=== PATIENT | male | born 1985 | race Caucasian/White ===

== ENCOUNTER 2020-06-08 16:52 | Inpatient (IN) | payer SELFPAY ==
[2020-06-08 20:54] LABS: Absolute Lymphocytes (CBC) 2.4 K/uL (0.7-4.9); Basophils % 0.9 % (0-1.3); Hematocrit 33.7 % (39.6-49.0); Lymphocytes % 15.9 % (15.3-44.8); MPV 7.1 fL (7.6-11.3); RBC Red Blood Cell Count 3.69 M/uL (4.33-5.43)
[2020-06-08 20:56] LABS: ALT/SGPT 155 U/L (12-78); AST/SGOT 105 U/L (15-37); Albumin 2.4 g/dL (3.4-5.0); Alkaline Phosphatase 236 U/L (45-117); BUN Blood Urea Nitrogen 18 mg/dL (7-18); Bicarbonate 31 mmol/L (21-32); Bilirubin Total 0.3 mg/dL (0.2-1.0); Glucose Level 92 mg/dL (74-106); Potassium 3.9 mmol/L (3.5-5.1); Protein, Total 8.1 g/dL (6.4-8.2); Sodium Level 141 mmol/L (136-145)
[2020-06-08] MEDS ORDERED: NA CHLORIDE 0.9% 1,000 ML ONE ×2 (21:37→22:42)
[2020-06-08 22:32] LABS: Protime INR 1.22
--- NOTE | 2020-06-08 22:33 | ER ---
Nurse's Notes [facility] Name: Liam Neal Age: 34 yrs Sex: Male : 1985 Arrival Date: 06/08/2020 Time: 16:55 Bed 18 Private MD: Diagnosis: Fever, unspecified;Pneumonia, unspecified organism;Sepsis, unspecified organism Presentation: 06/08 17:32 Chief complaint: Patient states: Nurse in the clinic in [place] said I must be septic. ca1 I got MRSA. I got blister inside my nose and my lips and top of my nose. Also have a rash/wound on my inner R wrist. Reports fever on and off > 1 week [employer]. Coronavirus screen: fever, Client presents with at least one sign or symptom that may indicate coronavirus-19. Standard/surgical mask placed on the client. Provider contacted for isolation considerations. Ebola Screen: Patient negative for fever greater than or equal to 101.5 degrees Fahrenheit, and additional compatible Ebola Virus Disease symptoms Patient denies exposure to infectious person. Patient denies travel to an Ebola-affected area in the 21 days before illness onset. No symptoms or risks identified at this time. Initial Sepsis Screen: Does the patient meet any 2 criteria? No. Patient's initial sepsis screen is negative. Does the patient have a suspected source of infection? No. Patient's initial sepsis screen is negative. Risk Assessment: Do you want to hurt yourself or someone else? Patient reports no desire to harm self or others. Onset of symptoms was June 08, 2020. 17:32 Method Of Arrival: Ambulatory ca1 17:32 Acuity: MIKA 3 ca1 Historical: - Allergies: 17:40 Amoxicillin; ca1 - Home Meds: 17:40 clindamycin HCl 300 mg Oral cap 1 cap every 6 hours [Active]; acyclovir 400 mg Oral tab ca1 1 tab 5 times per day [Active]; cyclobenzaprine 5 mg Oral tab 1 tab 3 times per day [Active]; Ibuprofen Oral [Active]; - PMHx: 17:40 None; ca1 - PSHx: 17:40 None; ca1 - Immunization history:: Last tetanus immunization: up to date Pneumococcal vaccine status is unknown, Flu vaccine is not up to date. - Social history:: Smoking status: Patient reports the use of cigarette tobacco products, smokes one-half pack cigarettes per day. Screenin:05 Abuse screen: Denies threats or abuse. Denies injuries from another. Nutritional zb screening: No deficits noted. Tuberculosis screening: No symptoms or risk factors identified. Fall Risk None identified. Assessment: 20:20 General: Appears in no apparent distress. comfortable, Behavior is calm, cooperative, zb appropriate for age. Pain: Complains of pain in forehead Pain does not radiate. Pain currently is 6 out of 10 on a pain scale. Neuro: Level of Consciousness is awake, alert, obeys commands, Oriented to person, place, time. Cardiovascular: Heart tones S1 S2 present Patient's skin is warm and dry. Respiratory: Reports Airway is patent Respiratory effort is even, unlabored, Respiratory pattern is regular, symmetrical. GI: Abdomen is flat, non-distended. : No signs and/or symptoms were reported regarding the genitourinary system. EENT: Derm: No signs and/or symptoms reported regarding the dermatologic system. Musculoskeletal: No signs and/or symptoms reported regarding the musculoskeletal system. 21:00 Reassessment: Patient appears in no apparent distress at this time. Patient and/or zb family updated on plan of care and expected duration. Pain level reassessed. Patient is alert, oriented x 3, equal unlabored respirations, skin warm/dry/pink. pt c/o of slight headache and back pain. dimmed light to help for headache. pt states it helped. 22:00 Reassessment: Patient appears in no apparent distress at this time. Patient and/or zb family updated on plan of care and expected duration. Pain level reassessed. Patient is alert, oriented x 3, equal unlabored respirations, skin warm/dry/pink. X-ray at bedside. 22:50 Reassessment: Patient appears in no apparent distress at this time. Patient and/or zb family updated on plan of care and expected duration. Pain level reassessed. Patient is alert, oriented x 3, equal unlabored respirations, skin warm/dry/pink. c/o of headache. notified ECP for medicaiton. IV medication started. 23:50 Reassessment: Patient appears in no apparent distress at this time. Patient and/or zb family updated on plan of care and expected duration. Pain level reassessed. Patient is alert, oriented x 3, equal unlabored respirations, skin warm/dry/pink. pt resting in bed. no c/o at this time. light dimmed. Vital Signs: 17:32 BP 134 / 80; Pulse 113; Resp 18 S; Temp 98.5(TE); Pulse Ox 98% on R/A; Weight 64.41 kg ca1 (R); Height 6 ft. 1 in. (185.42 cm) (R); 20:30 BP 124 / 82; Pulse 104; Resp 16; Pulse Ox 100% on R/A; zb 21:30 BP 115 / 81; Pulse 103; Resp 18; Pulse Ox 98% on R/A; zb 22:00 BP 123 / 82; Pulse 101; Resp 18; Pulse Ox 99% on R/A; zb 22:51 BP 138 / 87; Pulse 104; Resp 18; Pulse Ox 100% on R/A; zb 23:51 BP 132 / 95; Pulse 103; Resp 16; Pulse Ox 98% on R/A; zb 06/09 00:15 BP 124 / 75; Pulse 107; Resp 18; Pulse Ox 96% on R/A; zb 06/08 17:32 Body Mass Index 18.73 (64.41 kg, 185.42 cm) ca1 ED Course: 06/08 16:55 Patient arrived in ED. ag5 17:38 Triage completed. ca1 17:40 Arm band placed on right wrist. ca1 19:42 Derrick Lloyd PA is PHCP. jmm 19:42 Jimbo Williamson MD is Attending Physician. m 19:45 Dulce Maria Le, AISHA is Primary Nurse. zb 20:30 Inserted saline lock: 20 gauge in right antecubital area, using aseptic technique. zb Inserted saline lock: 20 gauge in left antecubital area, using aseptic technique. 20:44 CMP Sent. zb 20:44 CBC with Diff Sent. zb 21:46 PHCP role handed off by Derrick Lloyd PA cp 21:46 Jimbo Nascimento PA is PHCP. cp 22:05 Patient has correct armband on for positive identification. laboratory monitor on. Pulse zb ox on. NIBP on. Door closed. Noise minimized. Warm blanket given. 22:20 COVID swab sent to lab. Jessy (lab) orders for in house, stated understanding. sg 22:24 XRAY Chest (1 view) In Process Unspecified. EDMS 22:28 Ross Barnett MD is Hospitalizing Provider. [facility] 22:39 US Abdomen Limited In Process Unspecified. EDMS 22:52 Emir Key is Hospitalizing Provider. [facility] 06/09 01:28 Primary Nurse role handed off by Dulce Maria Le RN 01:28 Milton Hanson RN is Primary Nurse. sg Administered Medications: 06/08 21:00 Drug: NS 0.9% 1000 ml Route: IV; Rate: 1 bolus; Site: right antecubital; zb 22:49 Follow up: Response: No adverse reaction; IV Status: Completed infusion; IV Intake: zb 1000ml 22:41 Drug: vancoMYCIN 1 grams Route: IVPB; Infused Over: 2 hrs; Site: left antecubital; zb 22:42 Drug: NS 0.9% 1000 ml Route: IV; Rate: 1 bolus; Site: left antecubital; zb 22:49 Drug: Cefepime 1 grams Route: IVPB; Rate: 200 ml/hr; Infused Over: 30 mins; Site: right zb antecubital; 23:00 Drug: Tylenol 1000 mg Route: PO; zb 06/09 00:40 Drug: Cefepime 1 grams Route: IVPB; Rate: 200 ml/hr; Infused Over: 30 mins; Site: right zb antecubital; Intake: 06/08 22:49 IV: 1000ml; Total: 1000ml. zb Outcome: 22:33 Decision to Hospitalize by Provider. [facility] 06/09 13:46 Patient left the ED. hb Signatures: Dispatcher [employer] EDMilton Meraz RN RN sg Anderson, Corey, MD MD cha Mickail, Joel, PA PA jmm Page, Corey, PA PA cp Baxter, Heather, RN RN Meggan López RN RN ca1 [place], [facility] Dulce Maria Le RN RN zb Corrections: (The following items were deleted from the chart) 06/08 21:54 21:53 NS 0.9% 1000 ml IV at 1 bolus in right antecubital zb zb
--- NOTE | 2020-06-08 22:33 | EDPHYS ---
Physician Documentation [facility] Name: Liam Neal Age: 34 yrs Sex: Male : 1985 Arrival Date: 06/08/2020 Time: 16:55 Bed 18 Private MD: ED Physician Jimbo Williamson HPI: 06/08 20:11 This 34 yrs old Male presents to ER via Ambulatory with complaints of Fever, jmm Rash, Body Aches, Abnormal Lab Results. 20:11 This is a 34 year old male with no chronic medical conditions that presents to the ED [facility] with concerns he may be septic. Patient states symptoms initially began in April with an abscess to the right wrist secondary to a spider bite. Patient states developing swelling inside his right nose. Patient was seen by PCP, labs drawn and prescribed clindamycin and acyclovir. Patient states swelling has decreased but continues to have fevers and body aches. Denies cough but has had a sore throat which was swabbed with negative strep results. . Historical: - Allergies: 17:40 Amoxicillin; ca1 - Home Meds: 17:40 clindamycin HCl 300 mg Oral cap 1 cap every 6 hours [Active]; acyclovir 400 mg Oral tab ca1 1 tab 5 times per day [Active]; cyclobenzaprine 5 mg Oral tab 1 tab 3 times per day [Active]; Ibuprofen Oral [Active]; - PMHx: 17:40 None; ca1 - PSHx: 17:40 None; ca1 - Immunization history:: Last tetanus immunization: up to date Pneumococcal vaccine status is unknown, Flu vaccine is not up to date. - Social history:: Smoking status: Patient reports the use of cigarette tobacco products, smokes one-half pack cigarettes per day. ROS: 20:11 Constitutional: Positive for fever. jmm 20:11 ENT: Positive for sore throat. 20:11 Respiratory: Negative for cough, shortness of breath. 20:11 Skin: Positive for swelling. 20:11 All other systems are negative. Exam: 20:11 Head/Face: atraumatic. Eyes: EOMI, no conjunctival erythema appreciated [facility] 20:11 Neck: Trachea midline, Supple Chest/axilla: Normal chest wall appearance and motion. Cardiovascular: Regular rate and rhythm. No edema appreciated Respiratory: Normal respirations, no respiratory distress appreciated Abdomen/GI: Non distended, soft Back: Normal ROM Skin: General appearance color normal MS/ Extremity: Moves all extremities, no obvious deformities appreciated, no edema noted to the lower extremities Neuro: Awake and alert, normal gait Psych: Behavior is normal, Mood is normal, Patient is cooperative and pleasant 20:11 Constitutional: The patient appears in no acute distress, alert, awake. 20:11 ENT: Posterior pharynx: Uvula: normal, midline, erythema, that is moderate, exudate, that is moderate. 22:33 ECG was reviewed by the Attending Physician. [facility] 06/09 07:16 Cardiovascular: Rate: normal, Rhythm: regular, Pulses: no pulse deficits are dawit appreciated, Heart sounds: murmur, systolic, grade 2 over 6. Vital Signs: 06/08 17:32 BP 134 / 80; Pulse 113; Resp 18 S; Temp 98.5(TE); Pulse Ox 98% on R/A; Weight 64.41 kg ca1 (R); Height 6 ft. 1 in. (185.42 cm) (R); 20:30 BP 124 / 82; Pulse 104; Resp 16; Pulse Ox 100% on R/A; zb 21:30 BP 115 / 81; Pulse 103; Resp 18; Pulse Ox 98% on R/A; zb 22:00 BP 123 / 82; Pulse 101; Resp 18; Pulse Ox 99% on R/A; zb 22:51 BP 138 / 87; Pulse 104; Resp 18; Pulse Ox 100% on R/A; zb 23:51 BP 132 / 95; Pulse 103; Resp 16; Pulse Ox 98% on R/A; zb 06/09 00:15 BP 124 / 75; Pulse 107; Resp 18; Pulse Ox 96% on R/A; zb 06/08 17:32 Body Mass Index 18.73 (64.41 kg, 185.42 cm) ca1 MDM: 06/08 19:42 Patient medically screened. [facility] 21:01 Transition of care: After a detail discussion of the patient's case, care is jmm transferred to Jimbo HIGGINBOTHAM. 21:51 Differential diagnosis: viral Infection, bacterial infection, bronchitis, pneumonia dawit UTI. Data reviewed: vital signs, nurses notes, diagnostic data from outside facility, blood cultures, lab test result(s), EKG, radiologic studies. Data interpreted: patient monitor: rate is 113 beats/min, rhythm is regular, Pulse oximetry: on room air is 98 %. Test interpretation: by ED physician or midlevel provider: ECG, plain radiologic studies. Counseling: I had a detailed discussion with the patient and/or guardian regarding: the historical points, exam findings, and any diagnostic results supporting the discharge/admit diagnosis, lab results, radiology results. 06/08 19:54 Order name: CBC with Diff [facility] 06/08 19:54 Order name: CMP [facility] 06/08 19:54 Order name: Blood Culture Adult (2) [facility] 06/08 19:54 Order name: Procalcitonin; Complete Time: 21:46 [facility] 06/08 19:54 Order name: Lactate; Complete Time: 20:56 [facility] 06/08 19:54 Order name: Strep; Complete Time: 23:18 [facility] 06/08 19:55 Order name: CBC with Automated Diff; Complete Time: 20:56 [facility] 06/08 19:55 Order name: Comprehensive Metabolic Panel; Complete Time: 21:00 [facility] 06/08 21:49 Order name: Magnesium; Complete Time: 23:18 [facility] 06/08 21:49 Order name: NT PRO-BNP; Complete Time: 23:18 [facility] 06/08 21:49 Order name: PT-INR; Complete Time: 23:18 [facility] 06/08 21:49 Order name: Troponin (emerg Dept Use Only); Complete Time: 23:18 [facility] 06/08 21:49 Order name: XRAY Chest (1 view); Complete Time: 10:43 [facility] 06/08 22:14 Order name: Bilirubin Direct; Complete Time: 23:18 [facility] 06/08 22:15 Order name: AMMONIA; Complete Time: 23:18 [facility] 06/08 22:15 Order name: US Abdomen Limited; Complete Time: 10:43 [facility] 06/08 22:42 Order name: Throat Culture [facility] 06/08 23:40 Order name: COVID-19/FLU A+B; Complete Time: 04:02 [facility] 06/09 01:41 Order name: Echo with Doppler [facility] 06/09 01:41 Order name: Basic Metabolic Panel [facility] 06/09 01:41 Order name: Basic Metabolic Panel [facility] 06/09 01:41 Order name: CBC with Automated Diff [facility] 06/09 01:41 Order name: CBC with Automated Diff [facility] 06/08 19:54 Order name: Saline Lock; Complete Time: 20:44 [facility] 06/08 21:49 Order name: EKG; Complete Time: 21:50 [facility] 06/08 21:49 Order name: Cardiac monitoring; Complete Time: 22:00 [facility] 06/08 21:49 Order name: EKG - Nurse/Tech; Complete Time: 22:20 [facility] 06/08 21:49 Order name: Labs collected and sent; Complete Time: 22:20 [facility] 06/08 21:49 Order name: O2 Per Protocol; Complete Time: 22:20 [facility] 06/08 21:49 Order name: O2 Sat Monitoring; Complete Time: 22:20 [facility] 06/09 01:41 Order name: CONS Pharmacy Consult [facility] 06/09 01:41 Order name: CONS Pharmacy Consult [facility] 06/09 01:41 Order name: Regular EDWV EC:33 Rate is 110 beats/min. Rhythm is regular. QRS [place] is Normal. [place] interval is normal. [facility] QRS interval is normal. QT interval is normal. No Q waves. T waves are Normal. No ST changes noted. Clinical impression: Sinus tachycardia and No evidence of ischemia. Interpreted by me. Reviewed by me. Administered Medications: 21:00 Drug: NS 0.9% 1000 ml Route: IV; Rate: 1 bolus; Site: right antecubital; zb 22:49 Follow up: Response: No adverse reaction; IV Status: Completed infusion; IV Intake: zb 1000ml 22:41 Drug: vancoMYCIN 1 grams Route: IVPB; Infused Over: 2 hrs; Site: left antecubital; zb 22:42 Drug: NS 0.9% 1000 ml Route: IV; Rate: 1 bolus; Site: left antecubital; zb 22:49 Drug: Cefepime 1 grams Route: IVPB; Rate: 200 ml/hr; Infused Over: 30 mins; Site: right zb antecubital; 23:00 Drug: Tylenol 1000 mg Route: PO; 06/09 00:40 Drug: Cefepime 1 grams Route: IVPB; Rate: 200 ml/hr; Infused Over: 30 mins; Site: right zb antecubital; Disposition: 06/08 21:51 Co-signature as Attending Physician, Jimbo Williamson MD I agree with the assessment and [facility] plan of care. Disposition: 06/08/20 22:33 Hospitalization ordered by Emir Key for Inpatient Admission. Preliminary diagnosis are Fever, unspecified, Pneumonia, unspecified organism, Sepsis, unspecified organism. - Bed requested for Telemetry/MedSurg (Inpatient). - Status is Inpatient Admission. hb - Condition is Stable. - Problem is new. - Symptoms have improved. Signatures: Dispatcher [employer] EDMS Jessy Marr RN RN mw Anderson, Corey, MD MD cha Mickail, Joel, PA PA jmm Page, Corey, PA PA cp Baxter, Heather, RN RN Meggan López RN RN ca1 Brown, Zipporah, RN RN zb Corrections: (The following items were deleted from the chart) 22:14 21:50 BASIC METABOLIC PANEL+C.LAB.BRZ ordered. ED[facility] EDMS 22:14 21:50 HEPATIC FUNCTION+C.LAB.BRZ ordered. [facility] EDMS 22:18 19:55 Influenza Screen (A \T\ B)+BA.LAB.BRZ ordered. [facility] 22:19 19:55 CORONAVIRUS+MR.LAB.BRZ ordered. [facility] EDWV 22:52 22:33 Hospitalization Ordered by Ross Barnett MD for Inpatient Admission. Preliminary [facility] diagnosis is Fever, unspecified; Pneumonia, unspecified organism; Sepsis, unspecified organism. Bed requested for Telemetry/MedSurg (Inpatient). Status is Inpatient Admission. Condition is Stable. Problem is new. Symptoms have improved. [facility] 06/09 00:24 06/08 22:52 06/08/2020 22:33 Hospitalization Ordered by Emir Key for Inpatient mw Admission. Preliminary diagnosis is Fever, unspecified; Pneumonia, unspecified organism; Sepsis, unspecified organism. Bed requested for Telemetry/MedSurg (Inpatient). Status is Inpatient Admission. Condition is Stable. Problem is new. Symptoms have improved. [facility] 06/09 11:36 00:24 06/08/2020 22:33 Hospitalization Ordered by Emir Key for Inpatient mw Admission. Preliminary diagnosis is Fever, unspecified; Pneumonia, unspecified organism; Sepsis, unspecified organism. Bed requested for [facility] ER HOLD. Status is Inpatient Admission. Condition is Stable. Problem is new. Symptoms have improved. mw 13:46 11:36 06/08/2020 22:33 Hospitalization Ordered by Emir Key for Inpatient hb Admission. Preliminary diagnosis is Fever, unspecified; Pneumonia, unspecified organism; Sepsis, unspecified organism. Bed requested for Telemetry/MedSurg (Inpatient). Status is Inpatient Admission. Condition is Stable. Problem is new. Symptoms have improved. mw
[2020-06-08] MEDS ORDERED: CEFEPIME/SWI 1gm 10 ML ONE (22:36)
[2020-06-08] MEDS ORDERED: NA CHLORIDE 0.9% 100 ML ONE (22:36)
[2020-06-08] MEDS ORDERED: VANCOMYCIN 1 GM/VIAL ONE (22:36)
[2020-06-08] MEDS ORDERED: NA CHLORIDE 0.9% 250 ML ONE (22:36)
[2020-06-08 22:45] LABS: Bilirubin Direct 0.1 mg/dL (0-0.2); Magnesium 2.3 mg/dL (1.8-2.4); NT PRO-BNP 53 pg/mL (<125); Troponin (Emerg Dept Use Only) < 0.02 ng/mL (0.0-0.045)
[2020-06-08] MEDS ORDERED: ACETAMINOPHEN 500 MG TAB ONE (23:09)
[2020-06-08 23:40] LABS: SARS-COV-2 RT PCR NEGATIVE (NEGATIVE)
[2020-06-09] MEDS ORDERED: CEFEPIME/SWI 1gm 10 ML ONE ×2 (00:52→09:25)
[2020-06-09] MEDS ORDERED: NA CHLORIDE 0.9% 100 ML ONE (00:52)
[2020-06-09] MEDS: NA CHLORIDE 0.9% 1,000 ML IV SCH ×4 (01:39→21:39)
[2020-06-09] MEDS ORDERED: ONDANSETRON 4 MG/2 ML VIAL IV PRN (01:39)
--- NOTE | 2020-06-09 01:53 | P.HP ---
Certification for Inpatient Patient admitted to: Inpatient With expected LOS: >2 Midnights Patient will require the following post-hospital care: None Practitioner: I am a practitioner with admitting privileges, knowledge of patient current condition, hospital course, and medical plan of care. Services: Services provided to patient in accordance with Admission requirements found in Title 42 Section 412.3 of the Code of Federal Regulations <Otis Watson - Last Filed: 06/09/20 01:48> Patient History Date of Service: 06/09/20 Primary Care Provider: [facility] Reason for admission: Bacteremia, sepsis History of Present Illness: This is a 34-year-old male that presented to the emergency room tonight after having continuation of fevers, body aches, fatigue and malaise. Patient stated that he continues to have palpitations at home that has been unresolved. Patient stated that on May 26 he started to have swelling and pain to the right Bianchi which had spread across the face and cheek. Patient was seen for this and put on clindamycin. Patient then on June 02 had gone back to [facility] and had blood cultures drawn for continuation of symptoms. Patient stated that his culture report came back positive for MRSA. Patient stated that he started to feel bad again tonight and at that time. Came to the emergency room for further evaluation. Patient was worked up in the emergency room and found to have a white cell count of 14.8, hemoglobin 11.6, hematocrit 33.7, platelets of 811. Patient had sodium 141, potassium 3.9, chloride 105, bicarb 31, BUN 18, creatinine 0.73, glucose 92. Patient had elevated procalcitonin of 0.22. Patient had another set of blood cultures drawn in the emergency room as well and was started on vancomycin and cefepime. Culture report shown from his clinic showed that his blood cultures were sensitive to vancomycin. Medicine was consulted at that time for admission. Home medications list reviewed: Yes - Past Medical/Surgical History Has patient received pneumonia vaccine in the past: No Diabetic: No - Social History Smoking Status: Current every day smoker Smoking therapy provided: Yes Patient receptive to therapy: Yes Alcohol use: No CD- Drugs: No Caffeine use: Yes Place of Residence: Home <Neena Watsonshua - Last Filed: 06/09/20 01:48> Date of Service: 06/09/20 <titi pina - Last Filed: 06/09/20 16:20> Allergies amoxicillin Allergy (Verified 06/09/20 01:39) Hives/Rash Review of Systems General: Fever, Chills, Malaise Eyes: Unremarkable ENT: Nose Pain Respiratory: Unremarkable Cardiovascular: Palpitations Gastrointestinal: Unremarkable Genitourinary: Unremarkable Musculoskeletal: Unremarkable Integumentary: Rash Neurological: Unremarkable Lymphatics: Unremarkable <Otis Watson - Last Filed: 06/09/20 01:48> Physical Examination - Vital Signs Temperature: 98.5 F Blood Pressure: 134/80 Pulse: 113 Respirations: 18 Pulse Ox (%): 98 (Room air) - Physical Exam General: Alert, In no apparent distress, Oriented x3, Cooperative HEENT: PERRLA, Mucous membr. moist/pink, EOMI Neck: Supple, 2+ carotid pulse no bruit, JVD not distended, No Thyromegaly Respiratory: Clear to auscultation bilaterally, Normal air movement Cardiovascular: No edema, Normal pulses, Regular rate/rhythm, Normal S1 S2, Abnormal S3, No gallops, No rubs, No murmurs Capillary refill: <2 Seconds Gastrointestinal: Normal bowel sounds, Soft and benign, Non-distended, No ascites, No tenderness, No masses, No rebound, No guarding Musculoskeletal: No clubbing, No swelling, No contractures, No erythema, No tenderness, No warmth Integumentary: No breakdown, No significant lesion, No tenderness/swelling, No erythema, No warmth, No cyanosis, Rash(es) (Papular rash noted to the right chest wall. No petechia or purpura noted. Blanchable and nonpruritic) Neurological: Normal speech, Normal strength at 5/5 x4 extr, Normal tone, Sensation intact, Cranial nerves 3-12 intact, Normal affect Lymphatics: No axilla or inguinal lymphadenopathy - Studies Laboratory Data (last 24 hrs) 06/08/20 22:02: PT 14.3 H, INR 1.22 06/08/20 20:25: Sodium Cancelled, Potassium Cancelled, BUN Cancelled, Creatinine Cancelled, Glucose Cancelled, Magnesium 2.3, Total Bilirubin Cancelled, AST Cancelled, ALT Cancelled, Alkaline Phosphatase Cancelled 06/08/20 20:25: Sodium 141, Potassium 3.9, BUN 18, Creatinine 0.73, Glucose 92, Total Bilirubin 0.3, AST 105 H, ALT 155 H, Alkaline Phosphatase 236 H 06/08/20 20:25: WBC 14.8 H, Hgb 11.6 L, Hct 33.7 L, Plt Count 811 H Microbiology Data (last 24 hrs): 06/08/20 20:38 Throat Group A Streptococcus Rapid Screen - Final <Otis Watson - Last Filed: 06/09/20 01:48> - Studies Laboratory Data (last 24 hrs) 06/08/20 22:02: PT 14.3 H, INR 1.22 06/08/20 20:25: Sodium Cancelled, Potassium Cancelled, BUN Cancelled, Creatinine Cancelled, Glucose Cancelled, Magnesium 2.3, Total Bilirubin Cancelled, AST Cancelled, ALT Cancelled, Alkaline Phosphatase Cancelled 06/08/20 20:25: Sodium 141, Potassium 3.9, BUN 18, Creatinine 0.73, Glucose 92, Total Bilirubin 0.3, AST 105 H, ALT 155 H, Alkaline Phosphatase 236 H 06/08/20 20:25: WBC 14.8 H, Hgb 11.6 L, Hct 33.7 L, Plt Count 811 H Microbiology Data (last 24 hrs): 06/08/20 20:38 Throat Group A Streptococcus Rapid Screen - Final <titi pina - Last Filed: 06/09/20 16:20> Assessment and Plan - Problems (Diagnosis) (1) Bacteremia Current Visit: Yes Status: Acute (2) Sepsis Current Visit: Yes Status: Acute Qualifiers: Sepsis type: methicillin resistant Staphylococcus aureus Sepsis acute organ dysfunction status: without acute organ dysfunction Qualified Code(s): A41.02 - Sepsis due to Methicillin resistant Staphylococcus aureus - Plan 1. Patient will be admitted to the telemetry service where he will be monitored over the next couple days. 2. Labs will be drawn daily and will to wait for 2nd round of blood cultures. In the meantime we will continue on vancomycin and cefepime 3. Patient had abnormal S3 on auscultation of cardiac exam. Concerned with bacteremia and nasal infection that patient may have signs of early endocarditis. Echocardiogram has been ordered as such 4. Patient will be on continued hydration as well 5. DVT prophylaxis Discharge Plan: Home Plan to discharge in: Greater than 2 days - Advance Directives Does patient have a Living Will: No Does patient have a Durable POA for Healthcare: No - Code Status/Comfort Care Code Status Assessed: Yes Code Status: Full Code Critical Care: No Time Spent Managing Pts Care (In Minutes): 80 <Otis Watson - Last Filed: 06/09/20 01:48> Physician Review: Patient Assessed, Agree with Above Assessment and Plan Physician Review Additional Text: Upper respiratory infection. History of MRSA bacteremia. Plan: IV vancomycin Follow blood culture. I agree with echocardiogram to rule out endocarditis. <titi pina - Last Filed: 06/09/20 16:20>
[2020-06-09 02:39] VITALS: BMI 18.7
[2020-06-09] MEDS ORDERED: NA CHLORIDE 0.9% 1,000 ML ONE (03:19)
--- NOTE | 2020-06-09 06:18 | EKG ---
Test Date: 2020-06-08 Test Time: 22:06:34 Mission Assessment Specialist: CARMEN MEASUREMENT RESULTS: Intervals: Rate: 110 KS: 140 QRSD: 100 QT: 328 QTc: 443 [place]: P: 65 KS: 140 QRS: 104 T: 43 INTERPRETIVE STATEMENTS: Sinus tachycardia Rightward axis Cannot rule out Anterior infarct, age undetermined Abnormal ECG Compared to ECG 03/05/2011 06:46:06 Myocardial infarct finding now present Sinus rhythm no longer present Sinus arrhythmia no longer present Electronically Signed On 06-09-20 06:17:54 [employer] by Miguel Montes De Oca
[2020-06-09] MEDS: MORPHINE 2 MG/ML SYR IV PRN ×2 (07:29→12:05)
--- NOTE | 2020-06-09 07:54 | RAD REPORT ---
EXAM DESCRIPTION: Tristan Single View06/08/2020 10:23 pm CLINICAL HISTORY: Cough COMPARISON: none FINDINGS: [id number] left basilar opacity. Mild left upper lobe opacity. Right lung appears clear. Heart is normal size IMPRESSION: Mild to moderate left lung opacities probably pneumonia. There may be a small pleural ef fusion as well
[2020-06-09] MEDS ORDERED: INFLUENZA VACCINE (for 3y+) 0.5 ML DOSE IMVAC ONE (08:00)
--- NOTE | 2020-06-09 08:01 | RAD REPORT ---
EXAM DESCRIPTION: US - Abdomen Exam Limited - 06/08/2020 10:39 pm CLINICAL HISTORY: Abdominal pain. COMPARISON: None. FINDINGS: Limited examination as the patient was not NPO. A gallstone is not seen Gallbladder is somewhat contracted. Gallbladder wall appears mildly thickened. This may simply be sec ondary to the gallbladder being contracted. Small hypoechoic area surrounds a portion of the gallblad anupama. The biliary tree is normal caliber. IMPRESSION: A gallstone is not seen The gallbladder is somewhat contracted as the patient was not NPO. This results in limited evaluation of gallbladder thickness. Small hypoechoic area surrounding a portion of the gallbladder may represent focal fatty sparing or f luid. If the patient's symptoms persist then follow-up gallbladder ultrasound with the patient being NPO wo uld be recommended
[2020-06-09] MEDS: CEFEPIME/SWI 1gm 10 ML IV SCH ×2 (09:12→21:24)
[2020-06-09] MEDS: MUPIROCIN 2% OINT 22GM TUBE TOP SCH ×2 (09:12→21:00)
[2020-06-09] MEDS: ACETAMINOPHEN 500 MG TAB PO PRN ×2 (09:18→16:16)
[2020-06-09] MEDS ORDERED: MUPIROCIN 2% OINT 22GM TUBE TOP ONE (09:25)
[2020-06-09] MEDS ORDERED: ACETAMINOPHEN 325 MG TABLET ONE (09:33)
[2020-06-09] MEDS ORDERED: VANCOMYCIN/NS 1 gm 1 GM/250 ML BAG IVPB SCH (11:00)
[2020-06-09] MEDS ORDERED: CEFEPIME 1 GM/VIAL IV SCH (11:00)
[2020-06-09] MEDS: VANCOMYCIN 1.25 GM in NA CHLORIDE 0.9% 250 ML IVPB SCH ×2 (11:50→22:43)
[2020-06-09] MEDS ORDERED: MORPHINE 2 MG/ML SYR ONE (12:18)
--- NOTE | 2020-06-09 14:37 | ECHO ---
HEIGHT: 6 ft 1 in WEIGHT: 141 lb 15.643 oz DATE OF STUDY: 06/09/[address]: Otis Watson 2-DIMENSIONAL: YES M.MODE: YES DOPPLER: YES COLOR FLOW: YES TDS: PORTABLE: DEFINITY: BUBBLE STUDY: DIAGNOSIS: S3 WITH BACTERIA CARDIAC HISTORY: CATHERIZATION: NO SURGERY: NO PROSTHETIC VALVE: NO PACEMAKER: NO MEASUREMENTS (cm) DIASTOLIC (NORMALS) SYSTOLIC (NORMALS) IVSd 1.0 (0.6-1.2) LA Diam 2.4 (1.9-4.0) LVEF 58% LVIDd 4.4 (3.5-5.7) LVIDs 3.1 (2.0-3.5) %FS 30% LVPWd 0.9 (0.6-1.2) Ao Diam 3.2 (2.0-3.7) 2 DIMENSIONAL ASSESSMENT: RIGHT ATRIUM: LEFT ATRIUM: RIGHT VENTRICLE: LEFT VENTRICLE: TRICUSPID VALVE: MITRAL VALVE: PULMONIC VALVE: AORTIC VALVE: PERICARDIAL EFFUSION: AORTIC ROOT: LEFT VENTRICULAR WALL MOTION: DOPPLER/COLOR FLOW: TRACE MITRAL AND TRICUSPID REGURGITATION. NORMAL RIGHT VENTRICULAR SYSTOLIC PRESSURE. COMMENTS: HYPERDYNAMIC LEFT VENTRICLE. NO VEGETATION. NORMAL EJECTION FRACTION. NO EFFUSION. MILD MITRAL AND TRICUSPID REGURGITATION. TECHNOLOGIST: ERIC MADDOX
[2020-06-09] MEDS ORDERED: MORPHINE 2 MG/ML SYR IV ONE (15:00)
[2020-06-09] MEDS: ENOXAPARIN 40 MG/0.4 ML SQ SCH (16:16)
--- NOTE | 2020-06-09 16:21 | P.PN ---
Date of Service: 06/09/20 Patient seen and examined. Patient complaining of pain in nasal area as well as shoulder joint pains. There is a concern for disseminated MRSA. Plan; IV vancomycin Follow cultures Echocardiogram Infectious disease consult. Pain management as needed.
[2020-06-09] MEDS: MORPHINE 4 MG/ML SYR IV PRN (21:27)
[2020-06-10] MEDS: MORPHINE 4 MG/ML SYR IV PRN ×6 (01:23→22:33)
[2020-06-10] MEDS: NA CHLORIDE 0.9% 1,000 ML IV SCH ×3 (01:23→16:26)
[2020-06-10] MEDS: ACETAMINOPHEN 325 MG TABLET PO PRN ×2 (04:56→17:53)
[2020-06-10 05:13] LABS: Basophils % 1.2 % (0-1.3); Lymphocytes % 15.3 % (15.3-44.8); MPV 7.2 fL (7.6-11.3); RBC Red Blood Cell Count 3.47 M/uL (4.33-5.43)
[2020-06-10 05:24] LABS: BUN Blood Urea Nitrogen 9 mg/dL (7-18); Bicarbonate 29 mmol/L (21-32); Glucose Level 125 mg/dL (74-106); Sodium Level 138 mmol/L (136-145)
[2020-06-10] MEDS: MUPIROCIN 2% OINT 22GM TUBE TOP SCH ×2 (09:00→20:24)
[2020-06-10] MEDS: CEFEPIME/SWI 1gm 10 ML IV SCH ×2 (09:45→20:31)
[2020-06-10] MEDS: VANCOMYCIN 1.25 GM in NA CHLORIDE 0.9% 250 ML IVPB SCH ×2 (11:11→18:24)
--- NOTE | 2020-06-10 11:17 | P.PN ---
Subjective Date of Service: 06/10/20 Primary Care Provider: [facility] Chief Complaint: Bacteremia, sepsis Patient reports improvement in the pain in his right face. He has been afebrile. Blood cultures have yielded no growth. Echocardiogram: Unremarkable. Physical Examination - Vital Signs Temperature: 98.0 F Blood Pressure: 120/78 Pulse: 83 Respirations: 19 Pulse Ox (%): 97 - Physical Exam General: Alert, In no apparent distress Neck: Supple Respiratory: Clear to auscultation bilaterally, Normal air movement Cardiovascular: No edema, Regular rate/rhythm, Normal S1 S2 Gastrointestinal: Soft and benign, Non-distended, No tenderness Musculoskeletal: No swelling, No tenderness Integumentary: Other (Mild erythematous maculopapular rash on the back.) Neurological: Normal strength at 5/5 x4 extr, Cranial nerves 3-12 intact Assessment And Plan - Current Problems (Diagnosis) (1) MRSA (methicillin resistant Staphylococcus aureus) infection Current Visit: Yes Status: Acute (2) Sinusitis Current Visit: Yes Status: Acute (3) Bacteremia Current Visit: Yes Status: Acute - Plan Continue IV vancomycin. Watch for spread of the maculopapular rash which may indicate a drug allergy. Obtained CT facial to assess sinusitis and rule out abscess. Echocardiogram: No endocarditis. Follow blood cultures. Continue IV hydration Pain management as needed.
--- NOTE | 2020-06-10 12:23 | RAD REPORT ---
EXAM DESCRIPTION: CT - CTFBWCON CLINICAL HISTORY: MRSA Sinusitis r/o abscess Facial pain and swelling. COMPARISON: CT MAXILLOFACIAL W WO dated 11/26/2010 TECHNIQUE: Axial 2 mm thick images of the face were obtained with sagittal and coronal reconstructio n images. All CT scans are performed using dose optimization technique as appropriate and may include automated exposure control or mA/KV adjustment according to patient size. FINDINGS: Mild polypoid mucosal thickening is seen involving the paranasal sinuses, greatest in the left ethmoid air cells and inferior aspect both maxillary antra.No bony destructive changes are seen. No bony thickening evident. No abscess is evident.The mandible is intact. The globes and orbital contents are grossly unremarkable.Skull base structures are preserved. Visuali zed neck vessels are patent. Visualized intracranial contents are grossly unremarkable. Mild thickening of the soft tissues of the right aspect of the nose without fluid collection noted. . IMPRESSION: Mild paranasal sinus polypoid mucosal thickening is seen without abscess or other acute finding evident. Mild thickening of the soft tissues along the right aspect of the nose without underlying fluid colle ction.
[2020-06-10] MEDS: ENOXAPARIN 40 MG/0.4 ML SQ SCH (16:26)
[2020-06-10] MEDS ORDERED: CEFEPIME/SWI 1gm 10 ML ONE (20:14)
[2020-06-11] MEDS: MORPHINE 4 MG/ML SYR IV PRN ×5 (02:39→21:14)
[2020-06-11] MEDS: VANCOMYCIN 1.25 GM in NA CHLORIDE 0.9% 250 ML IVPB SCH ×3 (02:42→19:01)
[2020-06-11] MEDS: NA CHLORIDE 0.9% 1,000 ML IV SCH (05:32)
[2020-06-11 05:51] LABS: Absolute Lymphocytes (CBC) 2.4 K/uL (0.7-4.9); Basophils % 0.9 % (0-1.3); Lymphocytes % 20.1 % (15.3-44.8); MPV 7.1 fL (7.6-11.3); RBC Red Blood Cell Count 3.39 M/uL (4.33-5.43)
[2020-06-11 06:03] LABS: BUN Blood Urea Nitrogen 9 mg/dL (7-18); Bicarbonate 28 mmol/L (21-32); Glucose Level 105 mg/dL (74-106); Sodium Level 138 mmol/L (136-145)
--- NOTE | 2020-06-11 10:18 | P.PN ---
Subjective Date of Service: 06/11/20 Primary Care Provider: [facility] Chief Complaint: Bacteremia, sepsis Patient had a fever up to 100.2 yesterday Patient reports improvement in the pain in his right face. He has been afebrile. Blood cultures have yielded no growth. Echocardiogram: Unremarkable. CT Facial bones: No abscess. Mild mucosal thickening in the sinuses. Physical Examination - Vital Signs Temperature: 98.4 F Blood Pressure: 121/73 Pulse: 89 Respirations: 18 Pulse Ox (%): 97 - Physical Exam General: Alert, In no apparent distress HEENT: Mucous membr. moist/pink Respiratory: Clear to auscultation bilaterally, Normal air movement Cardiovascular: No edema, Regular rate/rhythm Gastrointestinal: Normal bowel sounds, Soft and benign, No tenderness Musculoskeletal: No swelling, No tenderness Integumentary: Erythema (Mild erythema-right face) Neurological: Other (No focal deficit) - Studies Microbiology Data (last 24 hrs): 06/08/20 20:38 Throat Culture & Sensitivity - Final NORMAL UPPER RESPIRATORY YELENA GROWN. Assessment And Plan - Current Problems (Diagnosis) (1) MRSA (methicillin resistant Staphylococcus aureus) infection Current Visit: Yes Status: Acute (2) Sinusitis Current Visit: Yes Status: Acute (3) Bacteremia Current Visit: Yes Status: Acute - Plan Continue IV vancomycin. Stable rash. I suspect rash is related to contact dermatitis rather than drug allergy. Echocardiogram: No endocarditis. Follow blood cultures. Pain management as needed. Discontinue IV fluid. Awaiting infectious disease input.
[2020-06-11] MEDS: MUPIROCIN 2% OINT 22GM TUBE TOP SCH ×2 (10:38→21:00)
[2020-06-11] MEDS: CEFEPIME/SWI 1gm 10 ML IV SCH ×2 (10:38→21:12)
[2020-06-11] MEDS: ENOXAPARIN 40 MG/0.4 ML SQ SCH (16:35)
[2020-06-11] MEDS: ACETAMINOPHEN 325 MG TABLET PO PRN (22:55)
[2020-06-12] MEDS: VANCOMYCIN 1.25 GM in NA CHLORIDE 0.9% 250 ML IVPB SCH ×2 (02:19→12:57)
[2020-06-12] MEDS: MORPHINE 4 MG/ML SYR IV PRN ×3 (03:57→12:49)
[2020-06-12 04:19] VITALS: O2SAT 97
[2020-06-12] MEDS: CEFEPIME/SWI 1gm 10 ML IV SCH (08:28)
[2020-06-12] MEDS: MUPIROCIN 2% OINT 22GM TUBE TOP SCH (09:00)
--- NOTE | 2020-06-12 11:55 | P.DS ---
Admission Date: 06/09/20 Discharge Date: 06/12/20 Primary Care Provider: [facility] Disposition: ROUTINE DISCHARGE Discharge Condition: FAIR Reason for Admission: Bacteremia, sepsis - Problems (1) MRSA (methicillin resistant Staphylococcus aureus) infection Current Visit: Yes Status: Acute (2) Sinusitis Current Visit: Yes Status: Acute (3) Bacteremia Current Visit: Yes Status: Acute Brief History of Present Illness: 34-year-old gentleman with no known past medical history presented to the emergency department ongoing fever and chill and facial pain. Patient reported he was bitten by a spider on the right wrist about 2 weeks prior. He developed abscess which was treated with oral antibiotics. He then developed pain and swelling in the right nostril which then spread to involve his face.. He went to [facility] and patient was placed on clindamycin. It to the clindamycin for 1 week without much improvement. He then had blood cultures taken which grew MRSA. Patient later reported to the emergency department because of ongoing symptoms. He was noted to have redness in the right aspect of his face. Patient was admitted for further management of MRSA bacteremia. Hospital Course: Patient admitted to the medical floor and treated with IV vancomycin. All blood cultures yielded no growth. Echocardiogram was done which did not show any endocarditis. Culture of throat swab grew normal lj. CT of facial did not show any abscess. His facial swelling and pain resolved with treatment. Patient received about 4 days of IV vancomycin. Case discussed with infectious disease. His previous blood cultures sensitivity profile was reviewed and noted the MRSA is sensitive to doxycycline. Patient's symptoms have resolved. He has been afebrile for 48 hours. Patient seen and evaluated by infectious disease. He is discharged with oral Bactrim to complete treatment for the MRSA. Vital Signs/Physical Exam: Temp Pulse Resp BP Pulse Ox 98.2 F 77 18 114/64 97 06/12/20 08:00 06/12/20 08:00 06/12/20 08:53 06/12/20 08:00 06/12/20 08:53 General: Alert, In no apparent distress, Oriented x3 HEENT: Atraumatic, Mucous membr. moist/pink, Sclerae nonicteric Respiratory: Clear to auscultation bilaterally, Normal air movement Cardiovascular: No edema, Regular rate/rhythm, Normal S1 S2 Gastrointestinal: Normal bowel sounds, Soft and benign, No tenderness Musculoskeletal: No swelling, No tenderness Integumentary: No rashes Neurological: Normal speech, Normal strength at 5/5 x4 extr Laboratory Data at Discharge: WBC 12.0 K/uL (4.3-10.9) H 06/11/20 05:08 Hgb 10.7 g/dL (13.6-17.9) L 06/11/20 05:08 Hct 31.0 % (39.6-49.0) L 06/11/20 05:08 Plt Count 818 K/uL (152-406) H 06/11/20 05:08 PT 14.3 SECONDS (9.5-12.5) H 06/08/20 22:02 INR 1.22 06/08/20 22:02 Sodium 138 mmol/L (136-145) 06/11/20 05:08 Potassium 4.0 mmol/L (3.5-5.1) 06/11/20 05:08 BUN 9 mg/dL (7-18) 06/11/20 05:08 Creatinine 0.57 mg/dL (0.55-1.3) 06/11/20 05:08 Glucose 105 mg/dL (74-106) 06/11/20 05:08 Magnesium 2.3 mg/dL (1.8-2.4) 06/08/20 20:25 Total Bilirubin 0.3 mg/dL (0.2-1.0) 06/08/20 20:25 Total Bilirubin Cancelled 06/08/20 20:25 AST 105 U/L (15-37) H 06/08/20 20:25 AST Cancelled 06/08/20 20:25 ALT 155 U/L (12-78) H 06/08/20 20:25 ALT Cancelled 06/08/20 20:25 Alkaline Phosphatase 236 U/L (45-117) H 06/08/20 20:25 Alkaline Phosphatase Cancelled 06/08/20 20:25 Home Medications: Acyclovir 400 mg PO DIRECTED 06/09/20 Ibuprofen 800 mg PO Q6H PRN 06/09/20 Tizanidine HCl [Zanaflex] 4 mg PO Q6H PRN 06/09/20 Mupirocin Oint [Bactroban 2% Ointment*] 0 appl TOP BID #1 tube 06/12/20 Smz./Tmp. [Bactrim Ds 800 MG/160 MG] 1 tab PO BID #28 tab 06/12/20 New Medications: Smz./Tmp. [Bactrim Ds 800 MG/160 MG] 1 tab PO BID #28 tab Mupirocin Oint [Bactroban 2% Ointment*] 0 appl TOP BID #1 tube Diet: Regular Activity: Ad clint Followup: Unknown,U [Primary Care Provider] - Time spent managing pt's care (in minutes): 37
[2020-06-12 14:44] VITALS: BP 110/66; TEMP 98.5
[2020-06-12] MEDS: ACETAMINOPHEN 325 MG TABLET PO PRN (15:05)
--- NOTE | 2020-06-12 15:19 | CON ---
History Of Present Illness: The patient is a 34-year-old male. I was consulted for possible MRSA in [facility], which he was diagnosed outside the hospital. The patient was given antibiotic outside the h ospital, which did not help. He was developing fever, body aches, and fatigue with malaise. The pat ient denies any chest pain, abdominal pain, constipation, diarrhea. He is having problems with heada ches. No other symptoms. No nausea, vomiting, or blurry vision. Past Medical History: None. Social History: Tobacco, positive for every day. Nondrinker. Family History: Noncontributory. Medications: Cefepime and vancomycin. See MAR for other medications. Allergies: AMOXIL. Review of Systems: A 10-point review was performed. Physical Examination: General: This is a 34-year-old male, lying in bed, not in any acute cardiopulmonary distress. Vital Signs: Temperature 98, pulse 77, respirations 18, blood pressure 114/64. HEENT: Unremarkable. Neck: Supple. Lungs: Basal crackles. Heart: S1, S2. Regular. Abdomen: Soft, nontender. Bowel sounds present. Extremities: No edema. Laboratory Data: Chest x-ray shows [id number] left lung opacity, probably pneumonia. Blood cu ltures are negative. CT of the facial bone shows the patient has mild paranasal sinus polypoid mucos al thickening seen without abscess or other acute findings evident, mild thickening of the soft tissu e over the right aspect of the nose without underlying fluid collection, left lower lobe pneumonia. Assessment And Plan: A 34-year-old male with no other significant history and history of methicillin -resistant Staphylococcus aureus as an outpatient, coming in with left lower lobe pneumonia and fever s and leukocytosis. We will recommend Bactrim DS 1 tab p.o. b.i.d. for 10 days. Continue antibiotic and supportive care and respiratory care. We will follow the patient as needed. NF/MODL Voice ID: [id number] Report ID: [id number]
== END 2020-06-12 16:49 | disposition home or self-care (01) | DRG 871 ==
LOC: ER 16:52 → ERHOLD 06-09 01:56 → 2ND 06-09 13:47
PROVIDERS: ADMIT Internal Medicine; ATTEND Internal Medicine
DX: A41.02 Sepsis due to Methicillin resistant Staphylococcus aureus (principal); J18.9 Pneumonia, unspecified organism; J32.9 Chronic sinusitis, unspecified; F17.210 Nicotine dependence, cigarettes, uncomplicated; W57.XXXA Bitten or stung by nonvenomous insect and other nonvenomous arthropods, initial encounter; Z88.1 Allergy status to other antibiotic agents; Z79.899 Other long term (current) drug therapy; Z20.822 Contact with and (suspected) exposure to COVID-19
CPT/HCPCS: 0240U; 36415; 70487; 71045; 76377; 76705; 80048; 80053; 80202; 82140; 82248; 83605; 83735; 83880; 84145; 84484; 85025; 85610; 87040; 87070; 87081; 93005; 93306; 99284; J0692; J1650; J2270; J3370; J7030; J7050; Q9967

== ENCOUNTER 2020-06-13 06:07 | Emergency (ER) | payer SELFPAY ==
--- OUTSIDE RECORDS SUMMARY | 2020-06-13 06:09 | XMS REPORT | Continuity of Care Document ---
:1985 Author Organization [facility] t Address [address] [place] [address] Care Team Providers Name Role Phone Allyn COLBY Attending Clinician Jimi Lim MD Attending Clinician Problems This patient has no known problems. Allergies, Adverse Reactions, Alerts This patient has no known allergies or adverse reactions. Medications This patient has no known medications. Procedures This patient has no known procedures. Encounters Start End Encounter Admission Attending Care Care Encounter Source Date/Time Date/Time Type Type Clinicians Facility Department ID 2019-10-29 2019-10-29 Refill SANDIP Gruber [id number] 00:00:00 00:00:00 Killian Conley [id number] [facility] [id number] Professio [phone] nal 044 Building 2019-09-24 2019-09-24 Refill SANDIP Lim [id number] 00:00:00 00:00:00 [facility] [id number] Jimi Conley [id number] Professio [phone] nal 044 Office Building One Results This patient has no known results.
--- NOTE | 2020-06-13 06:45 | EDPHYS ---
Physician Documentation [facility] Name: Liam Neal Age: 34 yrs Sex: Male : 1985 Arrival Date: 06/13/2020 Time: 06:14 Bed 23 Private MD: ED Physician Ross Patrick HPI: 06/13 06:40 This 34 yrs old Male presents to ER via Ambulatory with complaints of Rash. ma2 06:40 The rash can be described as urticarial. Onset: The symptoms/episode began/occurred ma2 gradually, 1 day(s) ago. Severity of symptoms: At their worst the symptoms were moderate. The patient has not experienced similar symptoms in the past. was just discharged with sinusitis and skin infection MRSA + blood culture was sent home on bactrim, 30 min after taking bactrim he developed rash and hives, that improved after benadryl. Historical: - Allergies: 06:30 Amoxicillin; dm5 - Home Meds: 06:30 acyclovir 400 mg Oral tab 1 tab 5 times per day [Active]; clindamycin HCl 300 mg Oral dm5 cap 1 cap every 6 hours [Active]; cyclobenzaprine 5 mg Oral tab 1 tab 3 times per day [Active]; Ibuprofen Oral [Active]; - PSHx: 06:30 None; dm5 - Immunization history:: Adult Immunizations up to date. - Social history:: Smoking status: unknown Patient/guardian denies using alcohol, street drugs, The patient lives with family. - Family history:: not pertinent. ROS: 06:40 Constitutional: Negative for fever, chills, and weight loss. ma2 06:40 All other systems are negative. Exam: 06:40 Constitutional: This is a well developed, well nourished patient who is awake, alert, ma2 and in no acute distress. ENT: Nares patent. No nasal discharge, no septal abnormalities noted. Tympanic membranes are normal and external auditory canals are clear. Oropharynx with no redness, swelling, or masses, exudates, or evidence of obstruction, uvula midline. Mucous membranes moist. Neck: Trachea midline, no thyromegaly or masses palpated, and no cervical lymphadenopathy. Supple, full range of motion without nuchal rigidity, or vertebral point tenderness. No Meningismus. Chest/axilla: Normal chest wall appearance and motion. Nontender with no deformity. No lesions are appreciated. Cardiovascular: Regular rate and rhythm with a normal S1 and S2. No gallops, murmurs, or rubs. Normal PMI, no JVD. No pulse deficits. Respiratory: Lungs have equal breath sounds bilaterally, clear to auscultation and percussion. No rales, rhonchi or wheezes noted. No increased work of breathing, no retractions or nasal flaring. Abdomen/GI: Soft, non-tender, with normal bowel sounds. No distension or tympany. No guarding or rebound. No evidence of tenderness throughout. MS/ Extremity: Pulses equal, no cyanosis. Neurovascular intact. Full, normal range of motion. Neuro: Awake and alert, GCS 15, oriented to person, place, time, and situation. Cranial nerves II-XII grossly intact. Motor strength 5/5 in all extremities. Sensory grossly intact. Cerebellar exam normal. Normal gait. 06:40 Skin: rash a moderate rash is noted, rash can be described as urticarial, hives. Vital Signs: 06:26 BP 129 / 80; Pulse 96; Resp 20; Temp 98.2(O); Pulse Ox 96% on R/A; Weight 65.32 kg; dm5 Height 6 ft. 1 in. (185.42 cm); Pain 7/10; 06:26 Body Mass Index 19.00 (65.32 kg, 185.42 cm) dm5 MDM: 06:36 Patient medically screened. ma2 06:40 Differential diagnosis: impetigo, varicella, allergic reaction, parasite infection. ma2 Data reviewed: vital signs, nurses notes. Counseling: I had a detailed discussion with the patient and/or guardian regarding: the historical points, exam findings, and any diagnostic results supporting the discharge/admit diagnosis, the presence of at least one elevated blood pressure reading (>120/80) during this emergency department visit, the need for outpatient follow up. Response to treatment: the patient's symptoms have markedly improved after treatment. ED course: this is likely allergic reaction to bactrim, i reviewed the chart, blood culture MRSA sensitive to doxycycline, will d/c bactrim and start doxy, advise to see pcp . Administered Medications: 06:37 Drug: predniSONE 40 mg Route: PO; dm5 06:55 Follow up: Response: No adverse reaction; No change in condition dm5 Disposition: 06/13/20 06:45 Discharged to Home. Impression: Allergy status to other antibiotic agents status - Bactrim. - Condition is Stable. - Discharge Instructions: Allergies, [id number]. - Prescriptions for Benadryl 25 mg Oral Capsule - take 1 capsule by ORAL route every 6 hours As needed; 30 tablet. Medrol (Pawan) 4 mg Oral Tablets, Dose Pack - take 1 tablet by ORAL route as directed - follow package instructions; 1 packet. Doxycycline Hyclate 100 mg Oral Tablet - take 1 tablet by ORAL route every 12 hours; 20 tablet. - Medication Reconciliation Form, Thank You Letter, Antibiotic Education, Prescription Opioid Use form. - Follow up: Private Physician; When: Tomorrow; Reason: Recheck today's complaints, Continuance of care. - Notes: stop taking Bactrim, and start taking Doxycicline, please Signatures: Flora Lynch RN RN dm5 Ross Patrick MD MD ma2 Corrections: (The following items were deleted from the chart) 06:55 06:45 06/13/2020 06:45 Discharged to Home. Impression: Allergy status to other dm5 antibiotic agents status - Bactrim. Condition is Stable. Prescriptions for Benadryl 25 mg Oral Capsule - take 1 capsule by ORAL route every 6 hours As needed; 30 tablet, Medrol (Pawan) 4 mg Oral Tablets, Dose Pack - take 1 tablet by ORAL route as directed - follow package instructions; 1 packet. and Forms are Medication Reconciliation Form, Thank You Letter, Antibiotic Education, Prescription Opioid Use. Follow up: Private Physician; When: Tomorrow; Reason: Recheck today's complaints, Continuance of care. ma2
--- NOTE | 2020-06-13 06:45 | ER ---
Nurse's Notes [facility] Name: Liam Neal Age: 34 yrs Sex: Male : 1985 Arrival Date: 06/13/2020 Time: 06:14 Bed 23 Private MD: Diagnosis: Allergy status to other antibiotic agents status-Bactrim Presentation: 06/13 06:26 Chief complaint: Patient states: discharged from hospital yesterday. Sent home with dm5 Bactrim. Pt states that he believes his rash is from the medication. Coronavirus screen: Client denies travel out of the [place] in the last 14 days. At this time, the client does not indicate any symptoms associated with coronavirus-19. Ebola Screen: Patient negative for fever greater than or equal to 101.5 degrees Fahrenheit, and additional compatible Ebola Virus Disease symptoms Patient denies exposure to infectious person. Patient denies travel to an Ebola-affected area in the 21 days before illness onset. No symptoms or risks identified at this time. Initial Sepsis Screen: Does the patient meet any 2 criteria? HR > 90 bpm. No. Patient's initial sepsis screen is negative. Does the patient have a suspected source of infection? No. Patient's initial sepsis screen is negative. Risk Assessment: Do you want to hurt yourself or someone else? Patient reports no desire to harm self or others. Onset of symptoms was June 13, 2020. 06:26 Acuity: MIKA 4 dm5 06:26 Method Of Arrival: Ambulatory dm5 Triage Assessment: 06:30 General: Appears in no apparent distress. Behavior is calm, cooperative. Pain: dm5 Complains of pain in head Pain currently is 7 out of 10 on a pain scale. Neuro: Level of Consciousness is awake, alert, obeys commands, Oriented to person, place, time, Reports headache. Respiratory: Airway is patent Respiratory effort is even, unlabored, Respiratory pattern is regular, symmetrical. Derm: Rash noted that is red, on abdomen, right arm, left arm, right leg and left leg. Historical: - Allergies: 06:30 Amoxicillin; dm5 - Home Meds: 06:30 acyclovir 400 mg Oral tab 1 tab 5 times per day [Active]; clindamycin HCl 300 mg Oral dm5 cap 1 cap every 6 hours [Active]; cyclobenzaprine 5 mg Oral tab 1 tab 3 times per day [Active]; Ibuprofen Oral [Active]; - PSHx: 06:30 None; dm5 - Immunization history:: Adult Immunizations up to date. - Social history:: Smoking status: unknown Patient/guardian denies using alcohol, street drugs, The patient lives with family. - Family history:: not pertinent. Screenin:54 Abuse screen: Denies threats or abuse. Denies injuries from another. Nutritional dm5 screening: No deficits noted. Tuberculosis screening: No symptoms or risk factors identified. Fall Risk None identified. Assessment: 06:54 Reassessment: Patient appears in no apparent distress at this time. No changes from dm5 previously documented assessment. Vital Signs: 06:26 BP 129 / 80; Pulse 96; Resp 20; Temp 98.2(O); Pulse Ox 96% on R/A; Weight 65.32 kg; dm5 Height 6 ft. 1 in. (185.42 cm); Pain 7/10; 06:26 Body Mass Index 19.00 (65.32 kg, 185.42 cm) dm5 ED Course: 06:14 Patient arrived in ED. ag3 06:28 Triage completed. dm5 06:30 Arm band placed on Patient placed in an exam room, on a stretcher. dm5 06:36 Ross Patrick MD is Attending Physician. ks2 06:54 Flora Lynch, RN is Primary Nurse. dm5 06:54 Patient has correct armband on for positive identification. dm5 06:54 No provider procedures requiring assistance completed. Patient did not have IV access dm5 during this emergency room visit. Administered Medications: 06:37 Drug: predniSONE 40 mg Route: PO; dm5 06:55 Follow up: Response: No adverse reaction; No change in condition dm5 Outcome: 06:45 Discharge ordered by . ma2 06:54 Discharged to home ambulatory. dm5 06:54 Condition: good 06:54 Discharge instructions given to patient, Instructed on discharge instructions, follow up and referral plans. medication usage, Demonstrated understanding of instructions, follow-up care, medications, Prescriptions given X 3. 06:55 Patient left the ED. dm5 Signatures: Flora Lynch, RN RN 5 Ross Patrick MD MD [facility] Anel Vaughn 3
[2020-06-13] MEDS ORDERED: predniSONE 20 MG TAB ONE (06:54)
[2020-06-13 06:59] VITALS: BP 129/80; TEMP 98.2; O2SAT 96
== END 2020-06-13 06:55 | disposition home or self-care (01) ==
LOC: ER 06:07
DX: R21 Rash and other nonspecific skin eruption (principal); Z88.1 Allergy status to other antibiotic agents
CPT/HCPCS: 99283; J7512

== ENCOUNTER 2022-03-11 16:01 | Emergency (ER) | payer SELFPAY ==
--- OUTSIDE RECORDS SUMMARY | 2022-03-11 16:05 | XMS REPORT | Continuity of Care Document ---
:1985 Author Organization [facility] t Address [address] [place] [address] Care Team Providers Name Role Phone KEREN GRUBER Attending Clinician Unavailable Keren Gruber MD Attending Clinician TONY LIM Attending Clinician Unavailable Tony Lim MD Attending Clinician Doctor Unassigned, [place] Attending Clinician Unavailable Sherri Basilio PT Attending Clinician Unavailable Pedro Pablo Benitez MD Attending Clinician Problems Condition Condition Condition Status Onset Resolution Last Treating Co mments Source Name Details Category Date Date Treatment Clinician Date Chronic Chronic Disease Active 2020-0 Univers pain pain 3-25 ity of syndrome syndrome 00:00: [address] Branch Current Current Disease Active 2020-0 Univers every day every day 3-25 ity of smoker smoker 00:00: [address] Branch Attention Attention Disease Active 2019 Uni vers deficit deficit 8-12 [place] hyper[place] Medical disorder disorder Branch (ADHD), (ADHD), combined combined type type Neck pain Neck pain Disease Active 2019- Uni vers 8-12 ity of 00:00: [place] [id number] Medical Branch Chronic Chronic Disease Active 2019-0 Univers pain of pain of 8-12 ity of both both 00:00: [place] shoulders shoulders 00 [facility] john Branch Chronic Chronic Disease Active 2019- Univers midline midline 8-12 [place]y of back pain, [place], [place] un[place] unspecifie 00 Me dical d back d back Branch location location Muscle Muscle Disease Active 20190 Univers spasms of spasms of 8-12 [place]y of [place] lower [place] extrem[place] extremitie 00 Me megan s s Branch Anxiety Anxiety Disease Active Univers 8-12 ity of 00:00: [place] 00 Medical Branch Muscle Muscle Disease Active Univers spasms of spasms of 8-12 [place]y of [place] extremitie 00 Me megan s s Branch Allergies, Adverse Reactions, Alerts Allergy Allergy Status Severity Reaction(s) Onset Inactive Treating Comm ents Source Name Type Date Date Clinician Amoxicil Propensi Active Swelling Univ ers annie ty to 10-24 ity of adverse 00:00: [place] reaction 00 Medical s Branch AMOXICIL DRUG Active Swelling Univer s ANNIE INGREDI 10-24 ity of 00:00: [place] 00 Medical Branch Social History Social Habit Start Date Stop Date Quantity Comments Source Sex Assigned At [facility] Smoking Status Start Date Stop Date Source Unknown if ever smoked Universit y [facility] Never smoker [facility] Medical Branch Medications Ordered Filled Start Stop Current Ordering Indication Dosage Frequency Signature Comments Components Source Medication Medication Date Date Medication? Clinician (SIG) Name Name dextroamphe 2020-0 Yes [id number] 15mg Take 1 Univers tamine-amph 6-10 tablet by ity of etamine 00:00: mouth 2 [place] (ADDERALL) 00 (two) Medical 15 mg times Branch tablet daily. dextroamphe 2020-0 Yes [id number] 15mg Take 1 Univers tamine-amph 5-04 tablet by ity of etamine 00:00: mouth 2 [place] (ADDERALL) 00 (two) Medical 15 mg times Branch tablet daily. dextroamphe 2020-0 2020- No [id number] 15mg Take 1 Univers tamine-amph 5-04 06-10 tablet by it y of etamine 00:00: 00:00 mouth 2 [place] (ADDERALL) 00 :00 (two) Medical 15 mg times Branch tablet daily. dextroamphe 2020-0 Yes [id number] 12.5mg Take 1 Univers tamine-amph 3-25 tablet by ity of etamine 00:00: mouth 2 [place] (ADDERALL) 00 (two) Medical 12.5 mg times Branch tablet daily. Venlafaxine 2020-0 Yes [id number] 1{tbl} Take 1 Univers 37.5 mg 3-25 tablet by ity of TR24 00:00: mouth [place] 00 every Medical morning. Branch Take Half (0.5) Tab by mouth every morning for anxiety dextroamphe 2020-0 Yes [id number] 12.5mg Take 1 Univers tamine-amph 3-25 tablet by ity of etamine 00:00: mouth 2 [place] (ADDERALL) 00 (two) Medical 12.5 mg times Branch tablet daily. Venlafaxine 2020-0 Yes [id number] 1{tbl} Take 1 Univers 37.5 mg 3-25 tablet by ity of TR24 00:00: mouth [place] 00 every Medical morning. Branch Take Half (0.5) Tab by mouth every morning for anxiety dextroamphe 2020-0 Yes [id number] 12.5mg Take 1 Univers tamine-amph 3-25 tablet by ity of etamine 00:00: mouth 2 [place] (ADDERALL) 00 (two) Medical 12.5 mg times Branch tablet daily. Venlafaxine 2020-0 Yes [id number] 1{tbl} Take 1 Univers 37.5 mg 3-25 tablet by ity of TR24 00:00: mouth [place] 00 every Medical morning. Branch Take Half (0.5) Tab by mouth every morning for anxiety dextroamphe 2020-0 Yes [id number] 12.5mg Take 1 Univers tamine-amph 3-25 tablet by ity of etamine 00:00: mouth 2 [place] (ADDERALL) 00 (two) Medical 12.5 mg times Branch tablet daily. Venlafaxine 2020-0 Yes [id number] 1{tbl} Take 1 Univers 37.5 mg 3-25 tablet by ity of TR24 00:00: mouth [place] 00 every Medical morning. Branch Take Half (0.5) Tab by mouth every morning for anxiety dextroamphe 2020-0 Yes [id number] 12.5mg Take 1 Univers tamine-amph 3-25 tablet by ity of etamine 00:00: mouth 2 [place] (ADDERALL) 00 (two) Medical 12.5 mg times Branch tablet daily. Venlafaxine 2020-0 Yes [id number] 1{tbl} Take 1 Univers 37.5 mg 3-25 tablet by ity of TR24 00:00: mouth [place] 00 every Medical morning. Branch Take Half (0.5) Tab by mouth every morning for anxiety dextroamphe 2020-0 Yes [id number] 12.5mg Take 1 Univers tamine-amph 3-25 tablet by ity of etamine 00:00: mouth 2 [place] (ADDERALL) 00 (two) Medical 12.5 mg times Branch tablet daily. Venlafaxine 2020-0 Yes [id number] 1{tbl} Take 1 Univers 37.5 mg 3-25 tablet by ity of TR24 00:00: mouth [place] 00 every Medical morning. Branch Take Half (0.5) Tab by mouth every morning for anxiety dextroamphe 2020-0 Yes [id number] 12.5mg Take 1 Univers tamine-amph 3-25 tablet by ity of etamine 00:00: mouth 2 [place] (ADDERALL) 00 (two) Medical 12.5 mg times Branch tablet daily. Venlafaxine 2020-0 Yes [id number] 1{tbl} Take 1 Univers 37.5 mg 3-25 tablet by ity of TR24 00:00: mouth [place] 00 every Medical morning. Branch Take Half (0.5) Tab by mouth every morning for anxiety dextroamphe 2020-0 Yes [id number] 12.5mg Take 1 Univers tamine-amph 3-25 tablet by ity of etamine 00:00: mouth 2 [place] (ADDERALL) 00 (two) Medical 12.5 mg times Branch tablet daily. Venlafaxine 2020-0 Yes [id number] 1{tbl} Take 1 Univers 37.5 mg 3-25 tablet by ity of TR24 00:00: mouth [place] 00 every Medical morning. Branch Take Half (0.5) Tab by mouth every morning for anxiety dextroamphe 2020-0 2020- No [id number] 12.5mg Take 1 Univers tamine-amph 3-25 05-04 tablet by it y of etamine 00:00: 00:00 mouth 2 [place] (ADDERALL) 00 :00 (two) Medical 12.5 mg times Branch tablet daily. Venlafaxine 2020-0 2020- No [id number] 1{tbl} Take 1 Univers 37.5 mg 3-25 05-04 tablet by ity of TR24 00:00: 00:00 mouth [place] 00 :00 every Medical morning. Branch Take Half (0.5) Tab by mouth every morning for anxiety dextroamphe 2020-0 2020- No [id number] 12.5mg Take 1 Univers tamine-amph 3-25 05-04 tablet by it y of etamine 00:00: 00:00 mouth 2 [place] (ADDERALL) 00 :00 (two) Medical 12.5 mg times Branch tablet daily. Venlafaxine 2020-0 2020- No [id number] 1{tbl} Take 1 Univers 37.5 mg 3-25 05-04 tablet by ity of TR24 00:00: 00:00 mouth [place] 00 :00 every Medical morning. Branch Take Half (0.5) Tab by mouth every morning for anxiety dextroamphe 2020-0 2020- No [id number] 12.5mg Take 1 Univers tamine-amph 3-25 05-04 tablet by it y of etamine 00:00: 00:00 mouth 2 [place] (ADDERALL) 00 :00 (two) Medical 12.5 mg times Branch tablet daily. Venlafaxine 2020-0 2020- No [id number] 1{tbl} Take 1 Univers 37.5 mg 3-25 05-04 tablet by ity of TR24 00:00: 00:00 mouth [place] 00 :00 every Medical morning. Branch Take Half (0.5) Tab by mouth every morning for anxiety dextroamphe 2020-0 Yes [id number] 12.5mg Take 1 Univers tamine-amph 2-18 tablet by ity of etamine 00:00: mouth 2 [place] (ADDERALL) 00 (two) Medical 12.5 mg times Branch tablet daily. dextroamphe 2020-0 Yes [id number] 12.5mg Take 1 Univers tamine-amph 2-18 tablet by ity of etamine 00:00: mouth 2 [place] (ADDERALL) 00 (two) Medical 12.5 mg times Branch tablet daily. dextroamphe 2020-0 Yes [id number] 12.5mg Take 1 Univers tamine-amph 2-18 tablet by ity of etamine 00:00: mouth 2 [place] (ADDERALL) 00 (two) Medical 12.5 mg times Branch tablet daily. dextroamphe 2020-0 Yes [id number] 12.5mg Take 1 Univers tamine-amph 2-18 tablet by ity of etamine 00:00: mouth 2 [place] (ADDERALL) 00 (two) Medical 12.5 mg times Branch tablet daily. dextroamphe 2020-0 Yes [id number] 12.5mg Take 1 Univers tamine-amph 2-18 tablet by ity of etamine 00:00: mouth 2 [place] (ADDERALL) 00 (two) Medical 12.5 mg times Branch tablet daily. dextroamphe 2020-0 2020- No [id number] 12.5mg Take 1 Univers tamine-amph 2-18 03-25 tablet by it y of etamine 00:00: 00:00 mouth 2 [place] (ADDERALL) 00 :00 (two) Medical 12.5 mg times Branch tablet daily. dextroamphe 2020-0 2020- No [id number] 12.5mg Take 1 Univers tamine-amph 2-18 03-25 tablet by it y of etamine 00:00: 00:00 mouth 2 [place] (ADDERALL) 00 :00 (two) Medical 12.5 mg times Branch tablet daily. dextroamphe 2020-0 Yes [id number] 12.5mg Take 1 Univers tamine-amph 1-17 tablet by ity of etamine 00:00: mouth 2 [place] (ADDERALL) 00 (two) Medical 12.5 mg times Branch tablet daily. dextroamphe 2020-0 Yes [id number] 12.5mg Take 1 Univers tamine-amph 1-17 tablet by ity of etamine 00:00: mouth 2 [place] (ADDERALL) 00 (two) Medical 12.5 mg times Branch tablet daily. dextroamphe 2020-0 Yes [id number] 12.5mg Take 1 Univers tamine-amph 1-17 tablet by ity of etamine 00:00: mouth 2 [place] (ADDERALL) 00 (two) Medical 12.5 mg times Branch tablet daily. dextroamphe 2020-0 2020- No [id number] 12.5mg Take 1 Univers tamine-amph 1-17 02-18 tablet by it y of etamine 00:00: 00:00 mouth 2 [place] (ADDERALL) 00 :00 (two) Medical 12.5 mg times Branch tablet daily. dextroamphe 2020-0 2020- No [id number] 12.5mg Take 1 Univers tamine-amph 1-17 02-18 tablet by it y of etamine 00:00: 00:00 mouth 2 [place] (ADDERALL) 00 :00 (two) Medical 12.5 mg times Branch tablet daily. Venlafaxine 2020-0 Yes [id number] 1{tbl} Take 1 Univers 37.5 mg 1-07 tablet by ity of TR24 00:00: mouth [place] 00 every Medical morning. Branch tiZANidine 2020-0 Yes [id number] 4mg Take 1 U nivers 4 mg tablet 1-07 tablet by ity of 00:00: mouth [place] 00 every 6 Medical (six) Branch hours as needed (Muscle Spams). Venlafaxine 2020-0 Yes [id number] 1{tbl} Take 1 Univers 37.5 mg 1-07 tablet by ity of TR24 00:00: mouth [place] 00 every Medical morning. Branch tiZANidine 2020-0 Yes [id number] 4mg Take 1 U nivers 4 mg tablet 1-07 tablet by ity of 00:00: mouth [place] 00 every 6 Medical (six) Branch hours as needed (Muscle Spams). Venlafaxine 2020-0 Yes [id number] 1{tbl} Take 1 Univers 37.5 mg 1-07 tablet by ity of TR24 00:00: mouth [place] 00 every Medical morning. Branch tiZANidine 2020-0 Yes [id number] 4mg Take 1 U nivers 4 mg tablet 1-07 tablet by ity of 00:00: mouth [place] 00 every 6 Medical (six) Branch hours as needed (Muscle Spams). Venlafaxine 2020-0 Yes [id number] 1{tbl} Take 1 Univers 37.5 mg 1-07 tablet by ity of TR24 00:00: mouth [place] 00 every Medical morning. Branch tiZANidine 2020-0 Yes [id number] 4mg Take 1 U nivers 4 mg tablet 1-07 tablet by ity of 00:00: mouth [place] 00 every 6 Medical (six) Branch hours as needed (Muscle Spams). Venlafaxine 2020-0 Yes [id number] 1{tbl} Take 1 Univers 37.5 mg 1-07 tablet by ity of TR24 00:00: mouth [place] 00 every Medical morning. Branch tiZANidine 2020-0 Yes [id number] 4mg Take 1 U nivers 4 mg tablet 1-07 tablet by ity of 00:00: mouth [place] 00 every 6 Medical (six) Branch hours as needed (Muscle Spams). tiZANidine 2020-0 Yes [id number] 4mg Take 1 U nivers 4 mg tablet 1-07 tablet by ity of 00:00: mouth [place] 00 every 6 Medical (six) Branch hours as needed (Muscle Spams). tiZANidine 2020-0 Yes [id number] 4mg Take 1 U nivers 4 mg tablet 1-07 tablet by ity of 00:00: mouth [place] 00 every 6 Medical (six) Branch hours as needed (Muscle Spams). tiZANidine 2020-0 Yes [id number] 4mg Take 1 U nivers 4 mg tablet 1-07 tablet by ity of 00:00: mouth [place] 00 every 6 Medical (six) Branch hours as needed (Muscle Spams). tiZANidine 2020-0 Yes [id number] 4mg Take 1 U nivers 4 mg tablet 1-07 tablet by ity of 00:00: mouth [place] 00 every 6 Medical (six) Branch hours as needed (Muscle Spams). tiZANidine 2020-0 Yes [id number] 4mg Take 1 U nivers 4 mg tablet 1-07 tablet by ity of 00:00: mouth [place] 00 every 6 Medical (six) Branch hours as needed (Muscle Spams). tiZANidine 2020-0 Yes [id number] 4mg Take 1 U nivers 4 mg tablet 1-07 tablet by ity of 00:00: mouth [place] 00 every 6 Medical (six) Branch hours as needed (Muscle Spams). tiZANidine 2020-0 Yes [id number] 4mg Take 1 U nivers 4 mg tablet 1-07 tablet by ity of 00:00: mouth [place] 00 every 6 Medical (six) Branch hours as needed (Muscle Spams). tiZANidine 2020-0 Yes [id number] 4mg Take 1 U nivers 4 mg tablet 1-07 tablet by ity of 00:00: mouth [place] 00 every 6 Medical (six) Branch hours as needed (Muscle Spams). tiZANidine 2020-0 Yes [id number] 4mg Take 1 U nivers 4 mg tablet 1-07 tablet by ity of 00:00: mouth [place] 00 every 6 Medical (six) Branch hours as needed (Muscle Spams). tiZANidine 2020-0 Yes [id number] 4mg Take 1 U nivers 4 mg tablet 1-07 tablet by ity of 00:00: mouth [place] 00 every 6 Medical (six) Branch hours as needed (Muscle Spams). tiZANidine 2020-0 Yes [id number] 4mg Take 1 U nivers 4 mg tablet 1-07 tablet by ity of 00:00: mouth [place] 00 every 6 Medical (six) Branch hours as needed (Muscle Spams). tiZANidine 2020-0 Yes [id number] 4mg Take 1 U nivers 4 mg tablet 1-07 tablet by ity of 00:00: mouth [place] 00 every 6 Medical (six) Branch hours as needed (Muscle Spams). Venlafaxine 2020-0 Yes [id number] 1{tbl} Take 1 Univers 37.5 mg 1-07 tablet by ity of TR24 00:00: mouth [place] 00 every Medical morning. Branch tiZANidine 2020-0 Yes [id number] 4mg Take 1 U nivers 4 mg tablet 1-07 tablet by ity of 00:00: mouth [place] 00 every 6 Medical (six) Branch hours as needed (Muscle Spams). Venlafaxine 2020-0 Yes [id number] 1{tbl} Take 1 Univers 37.5 mg 1-07 tablet by ity of TR24 00:00: mouth [place] 00 every Medical morning. Branch tiZANidine 2020-0 Yes [id number] 4mg Take 1 U nivers 4 mg tablet 1-07 tablet by ity of 00:00: mouth [place] 00 every 6 Medical (six) Branch hours as needed (Muscle Spams). Venlafaxine 2020-0 Yes [id number] 1{tbl} Take 1 Univers 37.5 mg 1-07 tablet by ity of TR24 00:00: mouth [place] 00 every Medical morning. Branch tiZANidine 2020-0 Yes [id number] 4mg Take 1 U nivers 4 mg tablet 1-07 tablet by ity of 00:00: mouth [place] 00 every 6 Medical (six) Branch hours as needed (Muscle Spams). Venlafaxine 2020-0 Yes [id number] 1{tbl} Take 1 Univers 37.5 mg 1-07 tablet by ity of TR24 00:00: mouth [place] 00 every Medical morning. Branch tiZANidine 2020-0 Yes [id number] 4mg Take 1 U nivers 4 mg tablet -07 tablet by ity of 00:00: mouth [place] 00 every 6 Medical (six) Branch hours as needed (Muscle Spams). Venlafaxine 2019- No [id number] 1{tbl} Take 1 Univers 37.5 mg 06-0125 tablet by ity of TR24 00:00: 00:00 mouth [place] 00 :00 every Medical morning. Branch Venlafaxine 2019- No [id number] 1{tbl} Take 1 Univers 37.5 mg 06-01- tablet by ity of TR24 00:00: 00:00 mouth [place] 00 :00 every Medical morning. Branch dextroamphe 2019- No [id number] 12.5mg Take 1 Univers tamine-amph 06-01 tablet by it y of etamine 00:00: 00:00 mouth 2 [place] (ADDERALL) 00 :00 (two) Medical 12.5 mg times Branch tablet daily. dextroamphe 2019- No [id number] 12.5mg Take 1 Univers tamine-amph 06-01 tablet by it y of etamine 00:00: 00:00 mouth 2 [place] (ADDERALL) 00 :00 (two) Medical 12.5 mg times Branch tablet daily. dextroamphe 2019- No [id number] 12.5mg Take 1 Univers tamine-amph 06-01 tablet by it y of etamine 00:00: 00:00 mouth 2 [place] (ADDERALL) 00 :00 (two) Medical 12.5 mg times Branch tablet daily. dextroamphe 2018- No [id number] 5mg Take 1 Univers tamine-amph 01-22 tablet by it y of etamine 00:00: 04:59 mouth 2 [place] (ADDERALL) 00 :00 (two) Medical 5 mg tablet times Branch daily for 30 days. tiZANidine 2018- No [id number] 2mg Take 1 Univers 2 mg 01-22- capsule by ity of capsule 00:00: 04:59 mouth 3 [place] 00 :00 (three) Medical times Branch daily as needed for Muscle Spasms for up to 30 days. dextroamphe 2018- No [id number] 5mg Take 1 Univers tamine-amph 8-30 -30 tablet by it y of etamine 00:00: 04:59 mouth 2 [place] (ADDERALL) 00 :00 (two) Medical 5 mg tablet times Branch daily for 30 days. tiZANidine 2019- No [id number] 2mg Take 1 Univers 2 mg 8-30 -30 capsule by ity of capsule 00:00: 04:59 mouth 3 [place] 00 :00 (three) Medical times Branch daily as needed for Muscle Spasms for up to 30 days. dextroamphe 2019- No [id number] 5mg Take 1 Univers tamine-amph 8-30 -30 tablet by it y of etamine 00:00: 04:59 mouth 2 [place] (ADDERALL) 00 :00 (two) Medical 5 mg tablet times Branch daily for 30 days. tiZANidine 2018- No [id number] 2mg Take 1 Univers 2 mg 8-22 02-30 capsule by ity of capsule 00:00: 04:59 mouth 3 [place] 00 :00 (three) Medical times Branch daily as needed for Muscle Spasms for up to 30 days. buPROPion Yes [id number] 100mg Take 1 U nivers 100 mg 8-12 tablet by ity of tablet 00:00: mouth 3 [place] 00 (three) Medical times Branch daily. buPROPion 2018- Yes [id number] 100mg Take 1 U nivers 100 mg 8-12 tablet by ity of tablet 00:00: mouth 3 [place] (three) Medical times Branch daily. buPROPion 2018-0 Yes [id number] 100mg Take 1 U nivers 100 mg 8-12 tablet by ity of tablet 00:00: mouth 3 [place] (three) Medical times Branch daily. buPROPion 2019-0 Yes [id number] 100mg Take 1 U nivers 100 mg 8-12 tablet by ity of tablet 00:00: mouth 3 [place] 00 (three) Medical times Branch daily. buPROPion 2019-0 Yes [id number] 100mg Take 1 U nivers 100 mg 8-12 tablet by ity of tablet 00:00: mouth 3 [place] 00 (three) Medical times Branch daily. buPROPion 2019-0 Yes [id number] 100mg Take 1 U nivers 100 mg 8-12 tablet by ity of tablet 00:00: mouth 3 00 (three) Medical times Branch daily. buPROPion 2019-0 Yes [id number] 100mg Take 1 U nivers 100 mg 8-12 tablet by ity of tablet 00:00: mouth 3 (three) Medical times [place] daily. buPROPion 2019-0 Yes [id number] 100mg Take 1 U nivers 100 mg 8-12 tablet by ity of tablet 00:00: mouth 3 (three) Medical times [place] daily. No known No Univers medications [facility] Vital Signs Vital Name Observation Time Observation Value Comments Source Systolic blood 2019-01-22 21:26:00 129 mm[Hg] Univer sity of [facility] Diastolic blood 2019-01-22 21:26:00 86 mm[Hg] [facility] Heart rate 2019-01-22 21:26:00 91 /min [facility] Body temperature 2019-01-22 21:26:00 37.28 Jes[place] [facility] Respiratory rate 2019-01-22 21:26:00 20 /min [facility] Body height 2019-01-22 21:26:00 182.9 cm [facility] Body weight 2019-01-22 21:26:00 68.493 kg [facility] BMI 2019-01-22 21:26:00 20.48 kg/m2 [facility] Oxygen saturation in 2019-01-22 21:26:00 100 /min [facility] Arterial blood by [facility] Pulse oximetry Branch Systolic blood 2019-01-04 18:33:00 115 mm[Hg] Univer sity of [facility] Diastolic blood 2019-01-04 18:33:00 80 mm[facility]Hg[facility] 2019-01-04 18:33:00 82 /min Universi ty [facility] Body temperature 2019-01-04 18:33:00 36.33 Jesenia [facility] Respiratory rate 2019-01-04 18:33:00 16 /min [facility] Body height 2019-01-04 18:33:00 185.4 cm [facility] Body weight 2019-01-04 18:33:00 64.501 kg Universi ty [facility] BMI 2019-01-04 18:33:00 18.76 kg/m2 Universi ty [facility] Oxygen saturation in 2019-01-04 18:33:00 99 /min University Arterial blood by [facility] Pulse oximetry Branch Procedures Procedure Date / Time Performing Clinician Source Performed EXTERNAL PROVIDER RECORDS 2019-06-19 06:01:00 Doctor Nolan, [facility] [place] [facility] STATEMENT OF PATIENT 2019-01-22 05:01:00 Doctor Nolan, [facility] FINANCIAL RESPONSIBILITY [place] [facility] ASSIGNMENT OF BENEFITS 2019-01-12 13:55:19 [facility] [place] [facility] ASSIGNMENT OF BENEFITS 2019-01-04 18:27:33 [facility] [place] [facility] Encounters Start End Encounter Admission Attending Care Care Encounter Source Date/Time Date/Time Type Type Clinicians Facility Department ID 2019-12-31 2019-12-31 Outpatient R ALLYN [facility] [id number] Univers 12:40:00 12:40:00 KEREN olmstead [facility] 2019-10-29 2019-10-29 Refill AllynRUST 1.2.840.114 [id number] 00:00:00 00:00:00 Keren Conley [id number] [place] [id number] Professio [phone] [address] 2019-10-29 2019-10-29 Refill AllynRUST 1.2.840.114 [id number] Univers 00:00:00 00:00:00 Keren Conley [id number] [id number] [phone] Vt dical [address] 2019-09-27 2019-09-27 Outpatient R CHELY [facility] [id number] Univers 11:30:00 11:30:00 TONY olmstead [facility] 2019-09-27 2019-09-27 Telemedici ChelyRUST 1.2.840.114 [id number] Univers 08:06:59 08:21:59 ne Visit Tony Conley [id number] ity of [id number] [phone] [address] 2019-09-24 2019-09-24 [facility] [id number] [facility] 15:20:00 15:20:00 KEREN ity of [facility] 2019-09-24 2019[facility] 1.2.840.114 [id number] 00:00:00 00:00:00 [facility] [id number] [place] [id number] Professio [phone] [address] 2019-09-24 2019-09-24 Refill ChelyRUST 1.2.840.114 [id number] [facility] 00:00:00 00:00:00 [facility] [id number] it y of [place] [id number] [place] Professio [id number] [address] 2019-08-18 2019-09-22 Telemedici [facility] 1.2.840.114 [id number] [facility] 07:03:22 22:11:35 ne Visit Keren Conley [id number] ity [id number] [phone] [address] 2019-08-31 2019-08-31 Telemedici [facility] 1.2.840.114 [id number] Univers 07:19:34 17:46:48 ne Visit Keren Conley [id number] ity [id number] [phone] [address] 2019-08-31 2019-08-31 Outpatient R ALLYN [facility] [id number] Univers 15:40:00 15:40:00 KEREN ity of [facility] 2019-08-20 2019-08-20 Telephone Allyn[facility] 1.2.840.114 [id number] Univers 00:00:00 00:00:00 Keren Conley [id number] i [id number] [phone] Vt dic[address] 2019-08-19 2019-08-19 Outpatient R [facility] [id number] Univers 10:20:00 10:20:00 KEREN olmstead [facility] 2019-08-18 2019-08-18 Outpatient R [facility] [id number] Univers 08:40:00 08:40:00 KEREN olmstead [facility] 2019-08-18 2019-08-18 Telephone [facility] 1.2.840.114 [id number] Univers 00:00:00 00:00:00 Keren Con[place] [id number] i [id number] [phone] [address] 2019-08-13 2019-08-13 Telephone [facility] 1.2.840.114 [id number] Univers 00:00:00 00:00:00 Keren Con[place] [id number] i [id number] [phone] [address] 2019-07-13 2019-07-13 [facility] 1.2.840.114 [id number] Univers 00:00:00 00:00:00 Keren Conley [id number] i [id number] [phone] [address] 2019-07-06 2019-07-06 Refill [facility] 1.2.840.114 [id number] Univers 00:00:00 00:00:00 Keren Conley 350.1.13.10 i ty of [place] [phone] [address] 2019-06-19 2019-06-19 Orders Doctor RAMOS 1.2.840.114 [id number] [facility] 00:00:00 00:00:00 Only Unassigned, MICHAEL [id number] ity of [facility] [id number] [place] as [phone] [address] 2019-06-10 2019-06-10 Refill [facility] 1.2.840.114 [id number] Univers 00:00:00 00:00:00 Keren Conley [id number] i [id number] [phone] Vt dical nal 044 [facility] 2019-06-09 2019-06-09 Telephone [facility] 1.2.840.114 [id number] Univers 00:00:00 00:00:00 Keren Conley [id number] i [id number] [phone] Vt dical nal 044 [facility] 2019-01-22 2019-01-22 Office [facility] 1.2.840.114 [id number] Univers 16:00:55 17:01:23 Visit Keren Conley [id number] i [id number] [phone] Vt dical nal 044 [facility] 2019-01-22 2019-01-22 Orders Doctor RAMOS 1.2.840.114 [id number] [facility] 00:00:00 00:00:00 Only Unassigned, MICHAEL [id number] ity of [facility] [id number] [place] [phone] [address] 2019-01-12 2019-01-12 Ancillary [facility] 1.2.840.114 [id number] Univers 09:00:09 13:34:22 Visit Pedro Pablo Benitez [id number] [id number] [phone] Vt dical nal 179 [facility] 2019-01-12 2019-01-12 Orders Doctor RAMOS 1.2.840.114 [id number] [facility] 00:00:00 00:00:00 Only Unassigned, MICHAEL [id number] ity of [facility] [id number] [place] [phone] [address] 2019-01-06 2019-01-06 Telephone [facility] 1.2.840.114 [id number] Univers 00:00:00 00:00:00 Keren Conley [id number] [id number] [phone] Vt dic[address] 2019-01-04 2019-01-04 Office [facility] 1.2.840.114 [id number] Univers 13:26:13 14:29:40 Visit Keren Conley [id number] i [id number] [phone] Vt dic[address] 2019-01-04 2019-01-04 Orders Doctor RICHARD 1.2.840.114 [id number] Univers 00:00:00 00:00:00 Only Unassigned, MICHAEL [id number] ity of [place] [facility] [id number] [place] [phone] [address] Results Test Description Test Time Test Comments Results Result Comments Source TSH, THIRD GENERATION 2021-10-13 06:28:00 Test Item Value Reference Range Interpretation Comme nts TSH, THIRD GENERATION (test 1.900 UIU/ML 0.400-4.100 UNLESS OTHERWISE INDICATED, code = 2821) ALL TESTING PER FORMED [facility], I NM. [address] [place] [address] 6535 LAST INSERTER: Rita ALBERTS [id number] [place] [id number] CBC W/AUTO DIFF WITH [id number] 03:59:30 Test Item Value Reference Range Interpretation Comments WBC (test code = 6.8 K/UL 3.5-11.0 1001) RBC (test code = 4.25 M/UL 4.50-6.10 L 1002) HEMOGLOBIN (test code 13.4 G/DL 13.5-17.0 L = 1003) HEMATOCRIT (test code 39.4 % 40.0-51.0 L = 1004) MCV (test code = 92.7 fL 80.0-99.0 1005) MCH (test code = 31.5 PG 25.0-33.0 1006) MCHC (test code = 34.0 G/DL 31.0-36.0 1007) RDW (test code = 12.4 % 11.5-15.0 1038) NEUTROPHILS (test 65.9 % code = 1008) LYMPHOCYTES (test 25.5 % code = 1010) MONOCYTES (test code 6.3 % = 1011) EOSINOPHILS (test 1.2 % code = 1012) BASOPHILS (test code 0.7 % = 1013) IMMATURE GRANULOCYTES 0.4 % (test code = 1036) NUCLEATED RBCS (test 0.0 /100 WBC'S See_Comment [Aut omated code = 1065) message] The sy stem which generated this result transmitted reference range : 0.0. The refere nce range was not u sed to interpret th is result as normal/abnormal . PLATELET COUNT (test 250 K/UL 130-400 code = 1015) ABSOLUTE NEUTROPHILS 4.49 K/UL 1.50-7.50 (test code = 1066) ABSOLUTE LYMPHOCYTES 1.74 K/UL 1.00-4.00 (test code = 1067) ABSOLUTE MONOCYTES 0.43 K/UL 0.20-1.00 (test code = 1068) ABSOLUTE EOSINOPHILS 0.08 K/UL 0.00-0.50 (test code = 1040) ABSOLUTE BASOPHILS 0.05 K/UL 0.00-0.20 (test code = 1069) ABS IMMATURE 0.03 K/UL 0.00-0.10 GRANULOCYTES (test code = 1020) ABS NUCLEATED RBCS 0.00 K/UL 0.00-0.11 (test code = 45550) COMPREHENSIVE METABOLIC [id number] 03:22:14 Test Item Value Reference Range Interpretation Comments GLUCOSE (test code = 119 MG/DL 70-99 H 2216) BUN (test code = 14 MG/DL 6-20 2207) CREATININE (test 0.84 MG/DL 0.80-1.40 code = 2214) eGFR (2020 CKD-EPI) 118 >60 (test code = 38748) ML/MIN/1.73 CALC BUN/CREAT (test 17 RATIO 6-28 code = 223) SODIUM (test code = 143 MEQ/L 969-225 3150) POTASSIUM (test code 4.2 MEQ/L 3.5-5.4 = 2227) CHLORIDE (test code 107 MEQ/L 95-107 = 221) CARBON DIOXIDE (test 26 MEQ/L 19-31 code = 220) CALCIUM (test code = 9.4 MG/DL 8.5-10.5 2208) PROTEIN, TOTAL (test 7.5 G/DL 6.1-8.3 code = 2228) ALBUMIN (test code = 4.6 G/DL 3.5-5.2 2200) CALC GLOBULIN (test 2.9 G/DL 1.9-3.7 code = 2239) CALC A/G RATIO (test 1.6 RATIO 1.0-2.6 code = 2233) BILIRUBIN, TOTAL 0.3 MG/DL See_Comment [Automated message] (test code = 2206) The syste m which generated this result transmit babak reference range : <=1.2. The refe rence range was not u sed to interpret th is result as normal/abnormal . ALKALINE PHOSPHATASE 83 U/L 40-112 (test code = 2203) AST (test code = 21 U/L 9-50 2217) ALT (test code = 23 U/L 5-50 2218) LIPID [id number] 03:22:14 Test Item Value Reference Range Interpretation Comments CHOLESTEROL (test 140 MG/DL <200 code = 2210) TRIGLYCERIDES (test 98 MG/DL <150 code = 2232) HDL CHOLESTEROL (test 68 MG/DL >39 code = 2220) CALC LDL CHOL (test 54 MG/DL <100 NOTE: C ALCULATED LDL code = 2237) IS BASED ON CJ-ANGULO METHOD WHICHINCLUDES ADJUSTABLE TRIGLYCERIDE:VL DL CHOLESTEROL RAT IO.THIS FACTOR VARIES B Y MEASURED TRIGLY CERIDE AND NON-HDLCHOL ESTEROL CONCENTRATIONS WITH INCREASED CALCU LATED LDL SEENIN HIGH ER TRIGLYCERIDE OR LOWER NON-HDL SPECIME NS. FOR MOREINFORMATION , SEE CLIENT ANNOUNCE MENT AT [email or web address] RATIO LDL/HDL 0.79 RATIO <3.55 (test code = 2238)
--- NOTE | 2022-03-11 17:03 | EDPHYS ---
Physician Documentation [facility] Name: Liam Neal Age: 36 yrs Sex: Male : 1985 Arrival Date: 03/11/2022 Time: 16:02 Bed Treatment Private MD: ED Physician Yeni Pierre HPI: 03/11 17:08 This 36 yrs old Male presents to ER via Ambulatory with complaints of Neck Pain, <24hrs snw Old. 17:08 The patient or guardian complains of pain, tenderness. The symptoms are located on the snw scalp, posterior cervical area, left trapezius and left scapular area. Onset: The symptoms/episode began/occurred 1 year(s) ago, and became worse 1 week(s) ago. Context: The problem was sustained at home, The neck injury/problem resulted from painting his Gmom's home, lots of overhead work. Associated signs and symptoms: Pertinent positives: Paresthesias to left arm and fingers. Severity of symptoms: At their worst the symptoms were moderate, severe. The patient has experienced similar episodes in the past. The patient has not recently seen a physician. Historical: - Allergies: 16:58 Amoxicillin; vg1 - PMHx: 16:58 depressive disorder; vg1 - PSHx: 16:58 left arm surgery; vg1 - Immunization history:: Client reports having NOT received the Covid vaccine. - Social history:: Smoking status: Patient reports the use of cigarette tobacco products, smokes one-half pack cigarettes per day. ROS: 17:07 Constitutional: Negative for fever, chills, and weight loss, Eyes: Negative for injury, snw pain, redness, and discharge, ENT: Negative for injury, pain, and discharge, Cardiovascular: Negative for chest pain, palpitations, and edema, Respiratory: Negative for shortness of breath, cough, wheezing, and pleuritic chest pain, Abdomen/GI: Negative for abdominal pain, nausea, vomiting, diarrhea, and constipation, Back: Negative for injury and pain, : Negative for injury, bleeding, discharge, and swelling, Skin: Negative for injury, rash, and discoloration, Neuro: Negative for headache, weakness, numbness, tingling, and seizure. 17:07 Neck: Positive for stiffness, tenderness. 17:07 MS/extremity: Positive for paresthesias, of the left arm. Exam: 17:05 Constitutional: This is a well developed, well nourished patient who is awake, alert, snw and in no acute distress. Head/Face: Normocephalic, atraumatic. Eyes: Pupils equal round and reactive to light, extra-ocular motions intact. Lids and lashes normal. Conjunctiva and sclera are non-icteric and not injected. Cornea within normal limits. Periorbital areas with no swelling, redness, or edema. ENT: Nares patent. No nasal discharge, no septal abnormalities noted. Tympanic membranes are normal and external auditory canals are clear. Oropharynx with no redness, swelling, or masses, exudates, or evidence of obstruction, uvula midline. Mucous membranes moist. Cardiovascular: Regular rate and rhythm with a normal S1 and S2. No gallops, murmurs, or rubs. Normal PMI, no JVD. No pulse deficits. Respiratory: Lungs have equal breath sounds bilaterally, clear to auscultation and percussion. No rales, rhonchi or wheezes noted. No increased work of breathing, no retractions or nasal flaring. Abdomen/GI: Soft, non-tender, with normal bowel sounds. No distension or tympany. No guarding or rebound. No evidence of tenderness throughout. Back: No spinal tenderness. No costovertebral tenderness. Full range of motion. Skin: Warm, dry with normal turgor. Normal color with no rashes, no lesions, and no evidence of cellulitis. MS/ Extremity: Pulses equal, no cyanosis. Neurovascular intact. Full, normal range of motion. Neuro: Awake and alert, GCS 15, oriented to person, place, time, and situation. Cranial nerves II-XII grossly intact. Motor strength 5/5 in all extremities. Sensory grossly intact.intermittent numbness/tingling in left upper extremity. Cerebellar exam normal. Normal gait. Psych: Awake, alert, with orientation to person, place and time. Behavior, mood, and affect are within normal limits. 17:05 Neck: External neck: no acute changes, C-spine: appears grossly normal, Thyroid: appears normal, Trachea: is midline with no obvious abnormalities, ROM/movement: pain, that is mild, that is moderate, with extension, with flexion. 17:05 Chest/axilla: Inspection: normal, Palpation: no acute changes, crepitus, is not appreciated, tender under left scapula. Vital Signs: 16:56 BP 117 / 77; Pulse 86; Resp 16; Temp 98.2; Pulse Ox 100% on R/A; Weight 67.13 kg; vg1 Height 6 ft. 1 in. (185.42 cm); Pain 6/10; 16:56 Body Mass Index 19.53 (67.13 kg, 185.42 cm) vg1 MDM: 17:01 Patient medically screened. snw 17:08 Data reviewed: vital signs, nurses notes. Data interpreted: Pulse oximetry: on room air snw is 100 %. Interpretation: normal. Counseling: I had a detailed discussion with the patient and/or guardian regarding: the historical points, exam findings, and any diagnostic results supporting the discharge/admit diagnosis, the need for outpatient follow up, to return to the emergency department if symptoms worsen or persist or if there are any questions or concerns that arise at home, smoking cessation. Special discussion: Based on the history and exam findings, there is no indication for further emergent testing or inpatient evaluation. I discussed with the patient/guardian the need to see the back specialist for further evaluation of the symptoms. Administered Medications: 17:35 Drug: Flexeril (cyclobenzaprine) 10 mg Route: PO; tp1 17:41 Follow up: Response: Medication administered at discharge. tp1 17:36 Drug: Ketorolac 60 mg Route: IM; Site: left deltoid; tp1 17:41 Follow up: Response: Medication administered at discharge. tp1 Disposition Summary: 03/11/22 17:03 Discharge Ordered Location: Home snw Condition: Stable snw Diagnosis - Radiculopathy, cervical region snw Followup: snw - With: Emergency Department - When: As needed - Reason: Worsening of condition Followup: snw - With: Private Physician - When: 2 - 3 days - Reason: Recheck today's complaints, Continuance of care, Re-evaluation by your physician Discharge Instructions: - Discharge Summary Sheet snw - Cervical Radiculopathy snw - Neuropathic Pain snw - Pinched Nerve snw - Heat Therapy snw - Radicular Pain snw Forms: - Medication Reconciliation Form snw - Thank You Letter snw - Antibiotic Education snw - Prescription Opioid Use snw Prescriptions: - Cyclobenzaprine 10 mg Oral Tablet - take 1 tablet by ORAL route every 8 hours As needed; 30 tablet; Refills: 0, snw Product Selection Permitted - Prednisone 20 mg Oral Tablet - take 2 tablets by ORAL route once daily for 5 days; 10 tablet; Refills: 0, snw Product Selection Permitted - Pepcid 20 mg Oral Tablet - take 1 tablet by ORAL route once daily; 20 tablet; Refills: 0, Product snw Selection Permitted - Tylenol-Codeine #3 300 mg-30 mg Oral - take 1 tablet by ORAL route 3 times per day; 18 tablet; Refills: 0, Product snw Selection Permitted Addendum: 03/14/2022 03:36 STAFF ATTESTATION STATEMENT: I was immediately available onsite in the emergency s d2 department for consultation in the care of this patient. I did not see or examine this patient. Yeni Pierre MD. Signatures: Tere Fitzgerald FNP-C FNP-Cs[facility] Agnes Zavaleta RN RN vg1 Hazel Quesada RN RN tp1 Yeni Pierre MD MD sd2
--- NOTE | 2022-03-11 17:03 | ER ---
Nurse's Notes [facility] Name: Liam Neal Age: 36 yrs Sex: Male : 1985 Arrival Date: 03/11/2022 Time: 16:02 Bed Treatment Private MD: Diagnosis: Radiculopathy, cervical region Presentation: 03/11 16:56 Chief complaint: Patient states: dealing with neck pain x 1 year but has recently been vg1 getting better until two days ago when was painting a house. Stated felt a pinch in the back of neck and numbness and tingling to Left arm. Coronavirus screen: Vaccine status: Patient reports being unvaccinated. Client denies travel out of the [place] in the last 14 days. Ebola Screen: Patient negative for fever greater than or equal to 101.5 degrees Fahrenheit, and additional compatible Ebola Virus Disease symptoms Patient denies exposure to infectious person. Initial Sepsis Screen: Does the patient meet any 2 criteria? No. Patient's initial sepsis screen is negative. Does the patient have a suspected source of infection? No. Patient's initial sepsis screen is negative. Risk Assessment: Do you want to hurt yourself or someone else? Patient reports no desire to harm self or others. Onset of symptoms was March 09, 2022. 16:56 Method Of Arrival: Ambulatory 1 16:56 Acuity: MIKA 4 vg1 Triage Assessment: 16:58 General: Appears in no apparent distress. uncomfortable, Behavior is calm, cooperative. vg1 Pain: Complains of pain in neck Pain radiates to left arm Pain currently is 6 out of 10 on a pain scale. Pain began 2-3 days ago. Neuro: Level of Consciousness is awake, alert, obeys commands, Oriented to person, place, time, situation, Reports numbness in left arm. Historical: - Allergies: 16:58 Amoxicillin; vg1 - PMHx: 16:58 depressive disorder; vg1 - PSHx: 16:58 left arm surgery; vg1 - Immunization history:: Client reports having NOT received the Covid vaccine. - Social history:: Smoking status: Patient reports the use of cigarette tobacco products, smokes one-half pack cigarettes per day. Screenin:40 Abuse screen: Denies threats or abuse. Denies injuries from another. Nutritional tp1 screening: No deficits noted. Tuberculosis screening: No symptoms or risk factors identified. Fall Risk None identified. Assessment: 17:00 General: Appears in no apparent distress. uncomfortable, Behavior is calm, cooperative. tp1 Pain: Complains of pain in back of neck Pain currently is 6 out of 10 on a pain scale. Neuro: Level of Consciousness is awake, alert, obeys commands, Oriented to person, place, time, situation. Neuro:. Cardiovascular: Capillary refill < 3 seconds in bilateral fingers Patient's skin is warm and dry. Respiratory: Airway is patent Respiratory effort is even, unlabored. Derm: Skin is pink, warm \T\ dry. Musculoskeletal: Circulation, motion, and sensation intact. Vital Signs: 16:56 BP 117 / 77; Pulse 86; Resp 16; Temp 98.2; Pulse Ox 100% on R/A; Weight 67.13 kg; vg1 Height 6 ft. 1 in. (185.42 cm); Pain 6/10; 16:56 Body Mass Index 19.53 (67.13 kg, 185.42 cm) vg1 ED Course: 16:02 Patient arrived in ED. rg4 16:55 [facility] snw 16:55 Yeni Pierre MD is Attending Physician. snw 16:58 Triage completed. vg1 16:58 Arm band placed on. vg1 17:00 Patient has correct armband on for positive identification. Bed in low position. Call tp1 light in reach. 17:40 No provider procedures requiring assistance completed. Patient did not have IV access tp1 during this emergency room visit. Administered Medications: 17:35 Drug: Flexeril (cyclobenzaprine) 10 mg Route: PO; tp1 17:41 Follow up: Response: Medication administered at discharge. tp1 17:36 Drug: Ketorolac 60 mg Route: IM; Site: left deltoid; tp1 17:41 Follow up: Response: Medication administered at discharge. tp1 Medication: 17:40 VIS not applicable for this client. tp1 Outcome: 17:03 Discharge ordered by . snw 17:40 Discharged to home ambulatory. tp1 17:40 Condition: good 17:40 Discharge instructions given to patient, Instructed on discharge instructions, follow up and referral plans. medication usage, Demonstrated understanding of instructions, follow-up care, medications, Prescriptions given X 4. 17:41 Patient left the ED. tp1 Signatures: Tere Fitzgerald FNP-C FNP-[place] rg4 Agnes Zavaleta RN RN vg1 Hazel Quesada RN RN tp1
[2022-03-11] MEDS ORDERED: CYCLOBENZAPRINE 10 MG TAB ONE (17:32)
[2022-03-11] MEDS ORDERED: KETOROLAC 30 MG/ML INJ ONE (17:32)
[2022-03-11 18:41] VITALS: BP 117/77; TEMP 98.2; O2SAT 100
== END 2022-03-11 17:41 | disposition home or self-care (01) ==
LOC: ER 16:01
DX: M54.12 Radiculopathy, cervical region (principal); Z88.1 Allergy status to other antibiotic agents; F32.A Depression, unspecified; F17.210 Nicotine dependence, cigarettes, uncomplicated
CPT/HCPCS: 96372; 99283

== ENCOUNTER 2022-05-03 12:26 | Emergency (ER) | payer SELFPAY ==
--- OUTSIDE RECORDS SUMMARY | 2022-05-03 12:30 | XMS REPORT | Continuity of Care Document ---
:1985 Author Organization [facility] t Address [address] [place] [address] [address] [place] [address] Care Team Providers Name Role Phone KEREN GRUBER Attending Clinician Unavailable Keren Gruber MD Attending Clinician TONY LIM Attending Clinician Unavailable Tony Lim MD Attending Clinician Doctor Unassigned, [place] Attending Clinician Unavailable Sherri Basilio PT Attending Clinician Unavailable Pedro Pablo Benitez MD Attending Clinician Problems Condition Condition Condition Status Onset Resolution Last Treating Co mments Source Name Details Category Date Date Treatment Clinician Date Chronic Chronic Disease Active 2020-0 Univers pain pain 3-25 ity of syndrome syndrome 00:00: [address] Branch Current Current Disease Active 2020-0 Univers every day every day 3-25 ity of smoker smoker 00:00: [address] Branch Attention Attention Disease Active 2019 Uni vers deficit deficit 8-12 [place] Medical disorder disorder Branch (ADHD), (ADHD), combined combined type type Neck pain Neck pain Disease Active 2019- Uni vers 8-12 ity of 00:00: [place] [id number] Medical Branch Chronic Chronic Disease Active 2019-0 Univers pain of pain of 8-12 ity of both both 00:00: [place] shoulders shoulders 00 [facility] Branch Chronic Chronic Disease Active [...] Quantity Comments Source [facility] Smoking Status Start Date Stop Date Source Unknown if ever smoked [facility] y [facility] Never smoker University [facility] Medical Branch Medications Ordered Filled Start Stop Current Ordering Indication Dosage Frequency Signature Comments Components Source Medication Medication Date Date Medication? Clinician (SIG) Name Name dextroamphe 2020-0 Yes [id number] 15mg Take 1 Univers tamine-amph 6-10 tablet by ity of etamine 00:00: mouth 2 [place] (ADDERALL) 00 (two) Medical 15 mg times Branch tablet daily. dextroamphe 2020-0 Yes [id number] 15mg Take 1 Univers tamine-amph 5-04 tablet by ity of etamine 00:00: mouth 2 [place] (ADDERALL) 00 (two) Medical 15 mg times Branch tablet daily. dextroamphe 2020-0 2020- No [id number] 15mg Take 1 Univers tamine-amph 5-04 06-10 tablet by it y of etamine 00:00: 00:00 mouth 2 [place] (ADDERALL) 00 :00 (two) Medical 15 mg times Branch tablet daily. dextroamphe 2020-0 Yes [id number] 12.5mg Take 1 Univers tamine-amph 3-25 tablet by ity of etamine 00:00: mouth 2 [place] (ADDERALL) 00 (two) Medical 12.5 mg times Branch tablet daily. Venlafaxine 2020-0 Yes [id number] 1{tbl} Take 1 Univers 37.5 mg 3-25 tablet by ity of TR24 00:00: mouth [place] 00 every Medical morning. Branch Take Half (0.5) Tab by mouth every morning for anxiety dextroamphe 2020-0 Yes [id number] 12.5mg Take 1 Univers tamine-amph 3-25 tablet by ity of etamine 00:00: mouth 2 [place] (ADDERALL) 00 (two) Medical 12.5 mg times Branch tablet daily. Venlafaxine 2020-0 Yes [id number] 1{tbl} Take 1 Univers 37.5 mg 3-25 tablet by ity of TR24 00:00: mouth [place] 00 every Medical morning. Branch Take Half (0.5) Tab by mouth every morning for anxiety dextroamphe 2020-0 Yes [id number] 12.5mg Take 1 Univers tamine-amph 3-25 tablet by ity of etamine 00:00: mouth 2 [place] (ADDERALL) 00 (two) Medical 12.5 mg times Branch tablet daily. Venlafaxine 2020-0 Yes [id number] 1{tbl} Take 1 Univers 37.5 mg 3-25 tablet by ity of TR24 00:00: mouth [place] 00 every Medical morning. Branch Take Half (0.5) Tab by mouth every morning for anxiety dextroamphe 2020-0 Yes [id number] 12.5mg Take 1 Univers tamine-amph 3-25 tablet by ity of etamine 00:00: mouth 2 [place] (ADDERALL) 00 (two) Medical 12.5 mg times Branch tablet daily. Venlafaxine 2020-0 Yes [id number] 1{tbl} Take 1 Univers 37.5 mg 3-25 tablet by ity of TR24 00:00: mouth [place] 00 every Medical morning. Branch Take Half (0.5) Tab by mouth every morning for anxiety dextroamphe 2020-0 Yes [id number] 12.5mg Take 1 Univers tamine-amph 3-25 tablet by ity of etamine 00:00: mouth 2 [place] (ADDERALL) 00 (two) Medical 12.5 mg times Branch tablet daily. Venlafaxine 2020-0 Yes [id number] 1{tbl} Take 1 Univers 37.5 mg 3-25 tablet by ity of TR24 00:00: mouth [place] 00 every Medical morning. Branch Take Half (0.5) Tab by mouth every morning for anxiety dextroamphe 2020-0 Yes [id number] 12.5mg Take 1 Univers tamine-amph 3-25 tablet by ity of etamine 00:00: mouth 2 [place] (ADDERALL) 00 (two) Medical 12.5 mg times Branch tablet daily. Venlafaxine 2020-0 Yes [id number] 1{tbl} Take 1 Univers 37.5 mg 3-25 tablet by ity of TR24 00:00: mouth [place] 00 every Medical morning. Branch Take Half (0.5) Tab by mouth every morning for anxiety dextroamphe 2020-0 Yes [id number] 12.5mg Take 1 Univers tamine-amph 3-25 tablet by ity of etamine 00:00: mouth 2 [place] (ADDERALL) 00 (two) Medical 12.5 mg times Branch tablet daily. Venlafaxine 2020-0 Yes [id number] 1{tbl} Take 1 Univers 37.5 mg 3-25 tablet by ity of TR24 00:00: mouth [place] 00 every Medical morning. Branch Take Half (0.5) Tab by mouth every morning for anxiety dextroamphe 2020-0 Yes [id number] 12.5mg Take 1 Univers tamine-amph 3-25 tablet by ity of etamine 00:00: mouth 2 [place] (ADDERALL) 00 (two) Medical 12.5 mg times Branch tablet daily. Venlafaxine 2020-0 Yes [id number] 1{tbl} Take 1 Univers 37.5 mg 3-25 tablet by ity of TR24 00:00: mouth [place] 00 every Medical morning. Branch Take Half (0.5) Tab by mouth every morning for anxiety dextroamphe 2020-0 2020- No [id number] 12.5mg Take 1 Univers tamine-amph 3-25 05-04 tablet by it y of etamine 00:00: 00:00 mouth 2 [place] (ADDERALL) 00 :00 (two) Medical 12.5 mg times Branch tablet daily. Venlafaxine 2020-0 2020- No [id number] 1{tbl} Take 1 Univers 37.5 mg 3-25 05-04 tablet by ity of TR24 00:00: 00:00 mouth [place] 00 :00 every Medical morning. Branch Take Half (0.5) Tab by mouth every morning for anxiety dextroamphe 2020-0 2020- No [id number] 12.5mg Take 1 Univers tamine-amph 3-25 05-04 tablet by it y of etamine 00:00: 00:00 mouth 2 [place] (ADDERALL) 00 :00 (two) Medical 12.5 mg times Branch tablet daily. Venlafaxine 2020-0 2020- No [id number] 1{tbl} Take 1 Univers 37.5 mg 3-25 05-04 tablet by ity of TR24 00:00: 00:00 mouth [place] 00 :00 every Medical morning. Branch Take Half (0.5) Tab by mouth every morning for anxiety dextroamphe 2020-0 2020- No [id number] 12.5mg Take 1 Univers tamine-amph 3-25 05-04 tablet by it y of etamine 00:00: 00:00 mouth 2 [place] (ADDERALL) 00 :00 (two) Medical 12.5 mg times Branch tablet daily. Venlafaxine 2020-0 2020- No [id number] 1{tbl} Take 1 Univers 37.5 mg 3-25 05-04 tablet by ity of TR24 00:00: 00:00 mouth [place] 00 :00 every Medical morning. Branch Take Half (0.5) Tab by mouth every morning for anxiety dextroamphe 2020-0 Yes [id number] 12.5mg Take 1 Univers tamine-amph 2-18 tablet by ity of etamine 00:00: mouth 2 [place] (ADDERALL) 00 (two) Medical 12.5 mg times Branch tablet daily. dextroamphe 2020-0 Yes [id number] 12.5mg Take 1 Univers tamine-amph 2-18 tablet by ity of etamine 00:00: mouth 2 [place] (ADDERALL) 00 (two) Medical 12.5 mg times Branch tablet daily. dextroamphe 2020-0 Yes [id number] 12.5mg Take 1 Univers tamine-amph 2-18 tablet by ity of etamine 00:00: mouth 2 [place] (ADDERALL) 00 (two) Medical 12.5 mg times Branch tablet daily. dextroamphe 2020-0 Yes [id number] 12.5mg Take 1 Univers tamine-amph 2-18 tablet by ity of etamine 00:00: mouth 2 [place] (ADDERALL) 00 (two) Medical 12.5 mg times Branch tablet daily. dextroamphe 2020-0 Yes [id number] 12.5mg Take 1 Univers tamine-amph 2-18 tablet by ity of etamine 00:00: mouth 2 [place] (ADDERALL) 00 (two) Medical 12.5 mg times Branch tablet daily. dextroamphe 2020-0 2020- No [id number] 12.5mg Take 1 Univers tamine-amph 2-18 03-25 tablet by it y of etamine 00:00: 00:00 mouth 2 [place] (ADDERALL) 00 :00 (two) Medical 12.5 mg times Branch tablet daily. dextroamphe 2020-0 2020- No [id number] 12.5mg Take 1 Univers tamine-amph 2-18 03-25 tablet by it y of etamine 00:00: 00:00 mouth 2 [place] (ADDERALL) 00 :00 (two) Medical 12.5 mg times Branch tablet daily. dextroamphe 2020-0 Yes [id number] 12.5mg Take 1 Univers tamine-amph 1-17 tablet by ity of etamine 00:00: mouth 2 [place] (ADDERALL) 00 (two) Medical 12.5 mg times Branch tablet daily. dextroamphe 2020-0 Yes [id number] 12.5mg Take 1 Univers tamine-amph 1-17 tablet by ity of etamine 00:00: mouth 2 [place] (ADDERALL) 00 (two) Medical 12.5 mg times Branch tablet daily. dextroamphe 2020-0 Yes [id number] 12.5mg Take 1 Univers tamine-amph 1-17 tablet by ity of etamine 00:00: mouth 2 [place] (ADDERALL) 00 (two) Medical 12.5 mg times Branch tablet daily. dextroamphe 2020-0 2020- No [id number] 12.5mg Take 1 Univers tamine-amph 1-17 02-18 tablet by it y of etamine 00:00: 00:00 mouth 2 [place] (ADDERALL) 00 :00 (two) Medical 12.5 mg times Branch tablet daily. dextroamphe 2020-0 2020- No [id number] 12.5mg Take 1 Univers tamine-amph 1-17 02-18 tablet by it y of etamine 00:00: 00:00 mouth 2 [place] (ADDERALL) 00 :00 (two) Medical 12.5 mg times Branch tablet daily. Venlafaxine 2020-0 Yes [id number] 1{tbl} Take 1 Univers 37.5 mg 1-07 tablet by ity of TR24 00:00: mouth [place] 00 every Medical morning. Branch tiZANidine 2020-0 Yes [id number] 4mg Take 1 U nivers 4 mg tablet 1-07 tablet by ity of 00:00: mouth [place] 00 every 6 Medical (six) Branch hours as needed (Muscle Spams). Venlafaxine 2020-0 Yes [id number] 1{tbl} Take 1 Univers 37.5 mg 1-07 tablet by ity of TR24 00:00: mouth [place] 00 every Medical morning. Branch tiZANidine 2020-0 Yes [id number] 4mg Take 1 U nivers 4 mg tablet 1-07 tablet by ity of 00:00: mouth [place] 00 every 6 Medical (six) Branch hours as needed (Muscle Spams). Venlafaxine 2020-0 Yes [id number] 1{tbl} Take 1 Univers 37.5 mg 1-07 tablet by ity of TR24 00:00: mouth [place] 00 every Medical morning. Branch tiZANidine 2020-0 Yes [id number] 4mg Take 1 U nivers 4 mg tablet 1-07 tablet by ity of 00:00: mouth [place] 00 every 6 Medical (six) Branch hours as needed (Muscle Spams). Venlafaxine 2020-0 Yes [id number] 1{tbl} Take 1 Univers 37.5 mg 1-07 tablet by ity of TR24 00:00: mouth [place] 00 every Medical morning. Branch tiZANidine 2020-0 Yes [id number] 4mg Take 1 U nivers 4 mg tablet 1-07 tablet by ity of 00:00: mouth [place] 00 every 6 Medical (six) Branch hours as needed (Muscle Spams). Venlafaxine 2020-0 Yes [id number] 1{tbl} Take 1 Univers 37.5 mg 1-07 tablet by ity of TR24 00:00: mouth [place] 00 every Medical morning. Branch tiZANidine 2020-0 Yes [id number] 4mg Take 1 U nivers 4 mg tablet 1-07 tablet by ity of 00:00: mouth [place] 00 every 6 Medical (six) Branch hours as needed (Muscle Spams). tiZANidine 2020-0 Yes [id number] 4mg Take 1 U nivers 4 mg tablet 1-07 tablet by ity of 00:00: mouth [place] 00 every 6 Medical (six) Branch hours as needed (Muscle Spams). tiZANidine 2020-0 Yes [id number] 4mg Take 1 U nivers 4 mg tablet 1-07 tablet by ity of 00:00: mouth [place] 00 every 6 Medical (six) Branch hours as needed (Muscle Spams). tiZANidine 2020-0 Yes [id number] 4mg Take 1 U nivers 4 mg tablet 1-07 tablet by ity of 00:00: mouth [place] 00 every 6 Medical (six) Branch hours as needed (Muscle Spams). tiZANidine 2020-0 Yes [id number] 4mg Take 1 U nivers 4 mg tablet 1-07 tablet by ity of 00:00: mouth [place] 00 every 6 Medical (six) Branch hours as needed (Muscle Spams). tiZANidine 2020-0 Yes [id number] 4mg Take 1 U nivers 4 mg tablet 1-07 tablet by ity of 00:00: mouth [place] 00 every 6 Medical (six) Branch hours as needed (Muscle Spams). tiZANidine 2020-0 Yes [id number] 4mg Take 1 U nivers 4 mg tablet 1-07 tablet by ity of 00:00: mouth [place] 00 every 6 Medical (six) Branch hours as needed (Muscle Spams). tiZANidine 2020-0 Yes [id number] 4mg Take 1 U nivers 4 mg tablet 1-07 tablet by ity of 00:00: mouth [place] 00 every 6 Medical (six) Branch hours as needed (Muscle Spams). tiZANidine 2020-0 Yes [id number] 4mg Take 1 U nivers 4 mg tablet 1-07 tablet by ity of 00:00: mouth [place] 00 every 6 Medical (six) Branch hours as needed (Muscle Spams). tiZANidine 2020-0 Yes [id number] 4mg Take 1 U nivers 4 mg tablet 1-07 tablet by ity of 00:00: mouth [place] 00 every 6 Medical (six) Branch hours as needed (Muscle Spams). tiZANidine 2020-0 Yes [id number] 4mg Take 1 U nivers 4 mg tablet 1-07 tablet by ity of 00:00: mouth [place] 00 every 6 Medical (six) Branch hours as needed (Muscle Spams). tiZANidine 2020-0 Yes [id number] 4mg Take 1 U nivers 4 mg tablet 1-07 tablet by ity of 00:00: mouth [place] 00 every 6 Medical (six) Branch hours as needed (Muscle Spams). tiZANidine 2020-0 Yes [id number] 4mg Take 1 U nivers 4 mg tablet 1-07 tablet by ity of 00:00: mouth [place] 00 every 6 Medical (six) Branch hours as needed (Muscle Spams). Venlafaxine 2020-0 Yes [id number] 1{tbl} Take 1 Univers 37.5 mg 1-07 tablet by ity of TR24 00:00: mouth [place] 00 every Medical morning. Branch tiZANidine 2020-0 Yes [id number] 4mg Take 1 U nivers 4 mg tablet 1-07 tablet by ity of 00:00: mouth [place] 00 every 6 Medical (six) Branch hours as needed (Muscle Spams). Venlafaxine 2020-0 Yes [id number] 1{tbl} Take 1 Univers 37.5 mg 1-07 tablet by ity of TR24 00:00: mouth [place] 00 every Medical morning. Branch tiZANidine 2020-0 Yes [id number] 4mg Take 1 U nivers 4 mg tablet 1-07 tablet by ity of 00:00: mouth [place] 00 every 6 Medical (six) Branch hours as needed (Muscle Spams). Venlafaxine 2020-0 Yes [id number] 1{tbl} Take 1 Univers 37.5 mg 1-07 tablet by ity of TR24 00:00: mouth [place] 00 every Medical morning. Branch tiZANidine 2020-0 Yes [id number] 4mg Take 1 U nivers 4 mg tablet 1-07 tablet by ity of 00:00: mouth [place] 00 every 6 Medical (six) Branch hours as needed (Muscle Spams). Venlafaxine 2020-0 Yes [id number] 1{tbl} Take 1 Univers 37.5 mg 1-07 tablet by ity of TR24 00:00: mouth [place] 00 every Medical morning. Branch tiZANidine 2020-0 Yes [id number] 4mg Take 1 U nivers 4 mg tablet -07 tablet by ity of 00:00: mouth [place] 00 every 6 Medical (six) Branch hours as needed (Muscle Spams). Venlafaxine 2019- No [id number] 1{tbl} Take 1 Univers 37.5 mg 06-0125 tablet by ity of TR24 00:00: 00:00 mouth [place] 00 :00 every Medical morning. Branch Venlafaxine 2019- No [id number] 1{tbl} Take 1 Univers 37.5 mg 06-01- tablet by ity of TR24 00:00: 00:00 mouth [place] 00 :00 every Medical morning. Branch dextroamphe 2019- No [id number] 12.5mg Take 1 Univers tamine-amph 06-01 tablet by it y of etamine 00:00: 00:00 mouth 2 [place] (ADDERALL) 00 :00 (two) Medical 12.5 mg times Branch tablet daily. dextroamphe 2019- No [id number] 12.5mg Take 1 Univers tamine-amph 06-01 tablet by it y of etamine 00:00: 00:00 mouth 2 [place] (ADDERALL) 00 :00 (two) Medical 12.5 mg times Branch tablet daily. dextroamphe 2019- No [id number] 12.5mg Take 1 Univers tamine-amph 06-01 tablet by it y of etamine 00:00: 00:00 mouth 2 [place] (ADDERALL) 00 :00 (two) Medical 12.5 mg times Branch tablet daily. dextroamphe 2018- No [id number] 5mg Take 1 Univers tamine-amph 01-22 tablet by it y of etamine 00:00: 04:59 mouth 2 [place] (ADDERALL) 00 :00 (two) Medical 5 mg tablet times Branch daily for 30 days. tiZANidine 2018- No [id number] 2mg Take 1 Univers 2 mg 01-22- capsule by ity of capsule 00:00: 04:59 mouth 3 [place] 00 :00 (three) Medical times Branch daily as needed for Muscle Spasms for up to 30 days. dextroamphe 2018- No [id number] 5mg Take 1 Univers tamine-amph 8-30 -30 tablet by it y of etamine 00:00: 04:59 mouth 2 [place] (ADDERALL) 00 :00 (two) Medical 5 mg tablet times Branch daily for 30 days. tiZANidine 2019- No [id number] 2mg Take 1 Univers 2 mg 8-30 -30 capsule by ity of capsule 00:00: 04:59 mouth 3 [place] 00 :00 (three) Medical times Branch daily as needed for Muscle Spasms for up to 30 days. dextroamphe 2019- No [id number] 5mg Take 1 Univers tamine-amph 8-30 -30 tablet by it y of etamine 00:00: 04:59 mouth 2 [place] (ADDERALL) 00 :00 (two) Medical 5 mg tablet times Branch daily for 30 days. tiZANidine 2018- No [id number] 2mg Take 1 Univers 2 mg 8-22 02-30 capsule by ity of capsule 00:00: 04:59 mouth 3 [place] 00 :00 (three) Medical times Branch daily as needed for Muscle Spasms for up to 30 days. buPROPion Yes [id number] 100mg Take 1 U nivers 100 mg 8-12 tablet by ity of tablet 00:00: mouth 3 [place] 00 (three) Medical times Branch daily. buPROPion 2018- Yes [id number] 100mg Take 1 U nivers 100 mg 8-12 tablet by ity of tablet 00:00: mouth 3 [place] (three) Medical times Branch daily. buPROPion 2018-0 Yes [id number] 100mg Take 1 U nivers 100 mg 8-12 tablet by ity of tablet 00:00: mouth 3 [place] (three) Medical times Branch daily. buPROPion 2019-0 Yes [id number] 100mg Take 1 U nivers 100 mg 8-12 tablet by ity of tablet 00:00: mouth 3 [place] 00 (three) Medical times Branch daily. buPROPion 2019-0 Yes [id number] 100mg Take 1 U nivers 100 mg 8-12 tablet by ity of tablet 00:00: mouth 3 [place] 00 (three) Medical times Branch daily. buPROPion 2019-0 Yes [id number] 100mg Take 1 U nivers 100 mg 8-12 tablet by ity of tablet 00:00: mouth 3 00 (three) Medical times Branch daily. buPROPion 2019-0 Yes [id number] 100mg Take 1 U nivers 100 mg 8-12 tablet by ity of tablet 00:00: mouth 3 (three) Medical times [place] daily. buPROPion 2019-0 Yes [id number] 100mg Take 1 U nivers 100 mg 8-12 tablet by ity of tablet 00:00: mouth 3 (three) Medical times [place] daily. No known No Univers medications [facility] Vital Signs Vital Name Observation Time Observation Value Comments Source Systolic blood 2019-01-22 21:26:00 129 mm[Hg] Univer sity of [facility] Diastolic blood 2019-01-22 21:26:00 86 mm[facility]Hg[facility] Heart rate 2019-01-22 21:26:00 91 /min [facility] Body temperature 2019-01-22 21:26:00 37.28 [place] [facility] Respiratory rate 2019-01-22 21:26:00 20 /min [facility] Body height 2019-01-22 21:26:00 182.9 cm [facility] Body weight 2019-01-22 21:26:00 68.493 [facility] BMI 2019-01-22 21:26:00 20.48 kg/m2 [facility] Oxygen saturation in 2019-01-22 21:26:00 100 /min [facility] Arterial blood by [facility] Pulse oximetry Branch Systolic blood 2019-01-04 18:33:00 115 mm[Hg] Univer sity of [facility] Diastolic blood 2019-01-04 18:33:00 80 [facility]Hg[facility] 2019-01-04 18:33:00 82 /min Universi ty [facility] Body temperature 2019-01-04 18:33:00 36.33 [place] [facility] Respiratory rate 2019-01-04 18:33:00 16 /min [facility] Body height 2019-01-04 18:33:00 185.4 cm [facility] Body weight 2019-01-04 18:33:00 64.501 kg Universi ty [facility] BMI 2019-01-04 18:33:00 18.76 kg/m2 Universi ty [facility] Oxygen saturation in 2019-01-04 18:33:00 99 /min University Arterial blood by [facility] Pulse oximetry Branch Procedures Procedure Date / Time Performing Clinician Source Performed EXTERNAL PROVIDER RECORDS 2019-06-19 06:01:00 Doctor Nolan, [facility] [place] [facility] STATEMENT OF PATIENT 2019-01-22 05:01:00 Doctor Nolan, [facility] FINANCIAL RESPONSIBILITY [place] [facility] ASSIGNMENT OF BENEFITS 2019-01-12 13:55:19 [facility] [place] [facility] ASSIGNMENT OF BENEFITS 2019-01-04 18:27:33 [facility] [place] [facility] Encounters Start End Encounter Admission Attending Care Care Encounter Source Date/Time Date/Time Type Type Clinicians Facility Department ID 2019-12-31 2019-12-31 Outpatient R ALLYN [facility] [id number] Univers 12:40:00 12:40:00 KEREN olmstead [facility] 2019-10-29 2019-10-29 [facility] [id number] 00:00:00 00:00:00 Keren Conley [id number] [place] [id number] Professio [phone] 2019-10-29 2019-10-29 [facility] [id number] Univers 00:00:00 00:00:00 Keren Conley [id number] i [id number] [phone] Mo dical [address] 2019-09-27 2019-09-27 Outpatient R CHELY [facility] [id number] Univers 11:30:00 11:30:00 TONY olmstead [facility] 2019-09-27 2019-09-27 [facility]medici [facility] [place] 1.2.840.114 [id number] Univers 08:06:59 08:21:59 ne Visit Tony Con[place] [id number] ity [id number] [phone] [address] 2019-09-24 2019-09-24 [facility] [id number] [facility] 15:20:00 15:20:00 KEREN ity of [facility] 2019-09-24 2019-09-24 [facility] [id number] 00:00:00 00:00:00 [facility] [id number] [place] [id number] Professio [phone] [address] 2019-09-24 2019-09-24 [facility] [place] [id number] [facility] 00:00:00 00:00:00 [facility] [id number] it y of [place] [id number] [place] Professio [phone] [address] 2019-08-18 2019-09-22 Telemedici [facility] [id number] [facility] 07:03:22 22:11:35 ne Visit Keren [place] [id number] [id number] [phone] [address] 2019-08-31 2019-08-31 Telemedici [facility] [id number] Univers 07:19:34 17:46:48 ne Visit Keren [place] [id number] [id number] [phone] [address] 2019-08-31 2019-08-31 Outpatient R ALLYN [facility] [id number] Univers 15:40:00 15:40:00 KEREN ity of [facility] 2019-08-20 2019-08-20 Tele[facility] [place] [id number] Univers 00:00:00 00:00:00 Keren Conley [id number] i [id number] [phone] Mo dic[address] 2019-08-19 2019-08-19 Outpatient R [facility] [id number] Univers 10:20:00 10:20:00 KEREN olmstead [facility] 2019-08-18 2019-08-18 Outpatient R [facility] [id number] Univers 08:40:00 08:40:00 KEREN olmstead [facility] 2019-08-18 2019-08-18 Telephone [facility] [id number] Univers 00:00:00 00:00:00 Keren Con[place] [id number] i [id number] [phone] [address] 2019-08-13 2019-08-13 Telephone [facility] 1.2.840.114 [id number] Univers 00:00:00 00:00:00 Keren Conley [id number] i ty [place] [id number] [phone] [address] 2019-07-13 2019-07-13 [facility] [id number] Univers 00:00:00 00:00:00 Keren Con[place] [id number] i ty [id number] [phone] [address] 2019-07-06 2019-07-06 Refill [facility] 1.2.840.114 [id number] Univers 00:00:00 00:00:00 Keren Conley [id number] i ty [place] [id number] [phone] [address] 2019-06-19 2019-06-19 Orders Doctor RAMOS 1.2.840.114 [id number] Univers 00:00:00 00:00:00 Only Unassigned, MICHAEL [id number] ity of [place] [facility] [id number] [place] [phone] [address] 2019-06-10 2019-06-10 Refill [facility] 1.2.840.114 [id number] Univers 00:00:00 00:00:00 Keren Conley [id number] i ty [id number] [phone] Mo dical nal 044 [facility] 2019-06-09 2019-06-09 Telephone [facility] 1.2.840.114 [id number] Univers 00:00:00 00:00:00 Keren Conley [id number] i ty [place] [id number] [phone] Mo dical nal 044 [facility] 2019-01-22 2019-01-22 Office [facility] [id number] Univers 16:00:55 17:01:23 Visit Keren Conley [id number] [id number] [phone] Mo dical nal 044 [facility] 2019-01-22 2019-01-22 Orders Doctor RAMOS [id number] Univers 00:00:00 00:00:00 Only Unassigned, MICHAEL [id number] ity of [place] [facility] [id number] [place] [phone] [address] 2019-01-12 2019-01-12 Ancillary Sherri Basilio [facility] [id number] Univers 09:00:09 13:34:22 Visit Pedro Pablo Benitez [id number] [id number] [phone] Mo dical nal 179 [facility] 2019-01-12 2019-01-12 Orders Doctor RAMOS [id number] Univers 00:00:00 00:00:00 Only Unassigned, MICHAEL [id number] ity of [place] [facility] [id number] [place] [phone] [address] 2019-01-06 2019-01-06 Telephone [facility] [id number] Univers 00:00:00 00:00:00 Keren Conley [id number] [id number] [phone] Mo dic[address] 2019-01-04 2019-01-04 Office [facility] [id number] Univers 13:26:13 14:29:40 Visit Keren Conley [id number] i [id number] [phone] Mo dic[address] 2019-01-04 2019-01-04 Orders Doctor RICHARD [id number] Univers 00:00:00 00:00:00 Only Unassigned, MICHAEL [id number] ity of [place] [facility] [id number] [place] [phone] [address] Results Test Description Test Time Test Comments Results Result Comments Source TSH, THIRD GENERATION 2021-10-13 06:28:00 Test Item Value Reference Range Interpretation Comme nts TSH, THIRD GENERATION (test 1.900 UIU/ML 0.400-4.100 UNLESS OTHERWISE INDICATED, code = 2821) ALL TESTING PER FORMED [facility], I [place]. [address] [place] [address] 6877 DISCHARGE SPECIALIST: Rita ALBERTS [id number] [place] [id number] CBC W/AUTO DIFF WITH [id number] 03:59:30 Test Item Value Reference Range Interpretation [...] RBCS 0.00 K/UL 0.00-0.11 (test code = 83884) COMPREHENSIVE METABOLIC [id number] 03:22:14 Test Item Value Reference Range Interpretation Comments GLUCOSE (test code = 119 MG/DL 70-99 H 2216) BUN (test code = 14 MG/DL 6-20 2207) CREATININE (test 0.84 MG/DL 0.80-1.40 code = 2214) eGFR (2020 CKD-EPI) 118 >60 (test code = 33534) ML/MIN/1.73 CALC BUN/CREAT (test 17 RATIO 6-28 code = 223) SODIUM (test code = 143 MEQ/L 519-713 1549) POTASSIUM (test code 4.2 MEQ/L 3.5-5.4 = [...] code = 23 U/L 5-50 2218) LIPID [id number] 03:22:14 Test Item Value Reference Range Interpretation [...] MOREINFORMATION , SEE CLIENT ANNOUNCE MENT AT [email or web address] RATIO LDL/HDL 0.79 RATIO <3.55 (test code = 2238)
[2022-05-03] MEDS ORDERED: HYDROCODONE/CHLORPHEN 5 ML/OSYR ONE (14:46)
--- NOTE | 2022-05-03 15:44 | RAD REPORT ---
EXAM DESCRIPTION: RAD - Chest Pa And Lat (2 Views) - 05/03/2022 3:29 pm CLINICAL HISTORY: COUGH COMPARISON: Portable 06/08/2020 TECHNIQUE: Frontal and lateral views of the chest were obtained. FINDINGS: The lungs are clear. Heart size is normal and central vasculature is within normal limit s. No pleural effusion or pneumothorax seen. No acute bony finding noted. No aortic abnormality. IMPRESSION: No acute cardiopulmonary process.
[2022-05-03 15:51] LABS: SARS-COV-2 RT PCR NEGATIVE (NEGATIVE)
--- NOTE | 2022-05-03 15:55 | ER ---
Nurse's Notes [facility] Name: Liam Neal Age: 36 yrs Sex: Male : 1985 Arrival Date: 05/03/2022 Time: 12:27 Bed IW2 Private MD: Diagnosis: Acute bronchitis, unspecified Presentation: 05/03 14:40 Chief complaint: Patient states: cough and breathing difficulty that began today. ss Coronavirus screen: Client denies travel out of the [place] in the last 14 days. Ebola Screen: Patient denies exposure to infectious person. Patient denies travel to an Ebola-affected area in the 21 days before illness onset. Initial Sepsis Screen: Does the patient meet any 2 criteria? No. Patient's initial sepsis screen is negative. Does the patient have a suspected source of infection? No. Patient's initial sepsis screen is negative. Risk Assessment: Do you want to hurt yourself or someone else? Patient reports no desire to harm self or others. Onset of symptoms was May 03, 2022. 14:40 Method Of Arrival: Ambulatory 14:40 Acuity: MIKA 3 Historical: - Allergies: 14:41 Amoxicillin; ss - Home Meds: 14:41 None [Active]; - PMHx: 14:41 depressive disorder; - PSHx: 14:41 left arm surgery; Vital Signs: 14:40 BP 111 / 83; Pulse 105; Resp 16; Temp 98.7(O); Pulse Ox 96% on R/A; Weight 65.77 kg; ss Height 6 ft. 1 in. (185.42 cm); 14:40 Body Mass Index 19.13 (65.77 kg, 185.42 cm) ED Course: 12:27 Patient arrived in ED. am2 12:30 Tere Fitzgerald FNP-C is PHCP. snw 12:30 Tip Delgado MD is Attending Physician. snw 14:41 Triage completed. ss 15:30 XRAY Chest Pa And Lat (2 Views) In Process Unspecified. EDMS Administered Medications: 14:45 Drug: Tussionex Pennkinetic ER (chlorpheniramine-hydrocodone) Suspension 5 ml Route: PO;ss Outcome: 15:54 Discharge ordered by . snw 16:15 Patient left the ED. iw Signatures: Dispatcher [employer] EDMS Tere Fitzgerald, SCRAP CHARGER-C SCRAP CHARGER-Csnw Tamica Irene RN RN iw Smirch, Shelby, RN RN Luma Gaspar
--- NOTE | 2022-05-03 15:55 | EDPHYS ---
Physician Documentation [facility] Name: Liam Neal Age: 36 yrs Sex: Male : 1985 Arrival Date: 05/03/2022 Time: 12:27 Bed IW2 Private MD: ED Physician Tip Delgado HPI: 05/03 14:50 This 36 yrs old Male presents to ER via Ambulatory with complaints of Cough, Breathing snw Difficulty. 14:50 The patient or guardian reports cough, difficulty breathing. Onset: The snw symptoms/episode began/occurred acutely, 2 day(s) ago, and became persistent. Severity of symptoms: At their worst the symptoms were moderate, severe. Associated signs and symptoms: The patient has no apparent associated signs or symptoms. The patient has not experienced similar symptoms in the past. The patient has not recently seen a physician. Historical: - Allergies: 14:41 Amoxicillin; ss - Home Meds: 14:41 None [Active]; ss - PMHx: 14:41 depressive disorder; ss - PSHx: 14:41 left arm surgery; ss ROS: 14:50 Constitutional: Negative for fever, chills, and weight loss, Eyes: Negative for injury, snw pain, redness, and discharge, ENT: Negative for injury, pain, and discharge, Neck: Negative for injury, pain, and swelling, Cardiovascular: Negative for chest pain, palpitations, and edema. 14:50 Abdomen/GI: Negative for abdominal pain, nausea, vomiting, diarrhea, and constipation, Back: Negative for injury and pain, : Negative for injury, bleeding, discharge, and swelling, MS/Extremity: Negative for injury and deformity, Skin: Negative for injury, rash, and discoloration, Neuro: Negative for headache, weakness, numbness, tingling, and seizure, Psych: Negative for depression, anxiety, suicide ideation, homicidal ideation, and hallucinations. 14:50 Respiratory: Positive for cough, shortness of breath, at rest. Exam: 14:49 Constitutional: This is a well developed, well nourished patient who is awake, alert, snw and in no acute distress. Head/Face: Normocephalic, atraumatic. Eyes: Pupils equal round and reactive to light, extra-ocular motions intact. Lids and lashes normal. Conjunctiva and sclera are non-icteric and not injected. Cornea within normal limits. Periorbital areas with no swelling, redness, or edema. ENT: Nares patent. No nasal discharge, no septal abnormalities noted. Tympanic membranes are normal and external auditory canals are clear. Oropharynx with no redness, swelling, or masses, exudates, or evidence of obstruction, uvula midline. Mucous membranes moist. Neck: Trachea midline, no thyromegaly or masses palpated, and no cervical lymphadenopathy. Supple, full range of motion without nuchal rigidity, or vertebral point tenderness. No Meningismus. Chest/axilla: Normal chest wall appearance and motion. Nontender with no deformity. No lesions are appreciated. 14:49 Abdomen/GI: Soft, non-tender, with normal bowel sounds. No distension or tympany. No guarding or rebound. No evidence of tenderness throughout. Back: No spinal tenderness. No costovertebral tenderness. Full range of motion. Skin: Warm, dry with normal turgor. Normal color with no rashes, no lesions, and no evidence of cellulitis. MS/ Extremity: Pulses equal, no cyanosis. Neurovascular intact. Full, normal range of motion. Neuro: Awake and alert, GCS 15, oriented to person, place, time, and situation. Cranial nerves II-XII grossly intact. Motor strength 5/5 in all extremities. Sensory grossly intact. Cerebellar exam normal. Normal gait. Psych: Awake, alert, with orientation to person, place and time. Behavior, mood, and affect are within normal limits. 14:49 Cardiovascular: Rate: tachycardic, Rhythm: regular. 14:49 Respiratory: the patient does not display signs of respiratory distress, Respirations: shallow respirations, Breath sounds: bronchial sounds, that are moderate, that are severe, are heard diffusely, + upper airway congestion. wheezing, bronchitic cough. Vital Signs: 14:40 BP 111 / 83; Pulse 105; Resp 16; Temp 98.7(O); Pulse Ox 96% on R/A; Weight 65.77 kg; ss Height 6 ft. 1 in. (185.42 cm); 14:40 Body Mass Index 19.13 (65.77 kg, 185.42 cm) MDM: 14:45 Patient medically screened. snw 15:55 Data reviewed: vital signs, nurses notes. Data interpreted: Pulse oximetry: on room air snw is 96 %. Interpretation: acceptable. Counseling: I had a detailed discussion with the patient and/or guardian regarding: the historical points, exam findings, and any diagnostic results supporting the discharge/admit diagnosis, lab results, radiology results, the need for outpatient follow up, to return to the emergency department if symptoms worsen or persist or if there are any questions or concerns that arise at home. Special discussion: Based on the history and exam findings, there is no indication for further emergent testing or inpatient evaluation. I discussed with the patient/guardian the need to see the primary care provider for further evaluation of the symptoms. 05/03 14:42 Order name: COVID-19/FLU A+B; Complete Time: 15:52 ss 05/03 14:42 Order name: XRAY Chest Pa And Lat (2 Views); Complete Time: 15:45 ss Administered Medications: 14:45 Drug: Tussionex Pennkinetic ER (chlorpheniramine-hydrocodone) Suspension 5 ml Route: PO;ss Disposition: 19:16 Co-signature as Attending Physician, Tip Delgado MD I agree with the assessment and rt plan of care. Disposition Summary: 05/03/22 15:54 Discharge Ordered Location: Home snw Condition: Stable snw Diagnosis - Acute bronchitis, unspecified snw Followup: snw - With: Emergency Department - When: As needed - Reason: Worsening of condition Followup: snw - With: Private Physician - When: 2 - 3 days - Reason: Recheck today's complaints, Continuance of care, Re-evaluation by your physician Discharge Instructions: - Discharge Summary Sheet snw - Acute Bronchitis, Adult snw - Rehydration, Adult snw Forms: - Medication Reconciliation Form snw - Thank You Letter snw - Antibiotic Education snw - Prescription Opioid Use snw - Work release form iw Prescriptions: - albuterol sulfate 90 mcg/actuation Inhalation HFA aerosol inhaler - inhale 2 puff by INHALATION route every 4-6 hours; 1 vial; Refills: 0, Product snw Selection Permitted - Zyrtec 10 mg Oral Tablet - take 1 tablet by ORAL route once daily As needed; 20 tablet; Refills: 0, snw Product Selection Permitted - Prednisone 20 mg Oral Tablet - take 2 tablets by ORAL route once daily for 5 days; 10 tablet; Refills: 0, snw Product Selection Permitted - Pepcid 20 mg Oral Tablet - take 1 tablet by ORAL route once daily; 20 tablet; Refills: 0, Product snw Selection Permitted - Tylenol-Codeine #3 300 mg-30 mg Oral - take 2 tablet by ORAL route 1-3 times daily; 18 tablet; Refills: 0, Product snw Selection Permitted Signatures: Dispatcher [employer] Tere Correa FNP-C CRIME SCENE EXAMINER-[place] Alejandra Powell RN RN ss Tip Delgado MD MD rt
[2022-05-03 19:09] VITALS: BP 111/83; TEMP 98.7; O2SAT 96
== END 2022-05-03 16:15 | disposition home or self-care (01) ==
LOC: ER 12:26
DX: J20.9 Acute bronchitis, unspecified (principal); Z20.822 Contact with and (suspected) exposure to COVID-19; Z88.1 Allergy status to other antibiotic agents
CPT/HCPCS: 0240U; 71046; 99283

== ENCOUNTER 2024-02-18 10:41 | Emergency (ER) | payer SELFPAY ==
--- OUTSIDE RECORDS SUMMARY | 2024-02-18 10:44 | XMS REPORT | Continuity of Care Document ---
Author Name Unknown Address [address] [facility] [address] [place] [address] [facility]connect Address [address] [facility] [address] [place] [address] Care Team Providers Care Licensed Loan Officer Name Role Phone Killian Gruber MD Primary Care Physician + [phone] Doctor Unassigned, [place] Attending Clinician U Killian Silva MD Attending Clinician [phone] KILLIAN GRUBER Attending Clinician Unavailable TONY LIM Attending Clinician Tony Jay MD Attending Clinician + [phone] Sherri Basilio PT Attending Clinician Unavailable Pedro Pablo Benitez MD Attending Clinician [phone] Problems Condition Name Condition Details Condition Category Status Onset Date Resolution Date Last Treatment Date Treating Clinician Comments Source Chronic pain syndrome Chronic pain syndrome Disease Active 08-17 00:00: 00 [facility] Current every day smoker Current every day smoker Disease Active 08-17 00:00: 00 [facility] Attention deficit hyperactiv ity disorder (ADHD), combined type Attention deficit hyperactiv ity disorder (ADHD), combined type Disease Active 01-04 00:00: 00 [facility] Neck pain Neck pain Disease Active 01-04 00:00: 00 [facility] Chronic pain of both shoulders Chronic pain of both shoulders Disease Active 01-04 00:00: 00 [facility] Chronic midline back pain, unspecifie d back location Chronic midline back pain, unspecifie d back location Disease Active 01-04 00:00: 00 [facility] Muscle spasms of both lower extremitie s Muscle spasms of both lower extremitie s Disease Active 01-04 00:00: 00 [facility] Anxiety Anxiety Disease Active 01-04 00:00: 00 [facility] Chronic pain of both shoulders Chronic pain of both shoulders Disease Active 01-04 00:00: 00 [facility] Muscle spasms of both lower extremitie s Muscle spasms of both lower extremitie s Disease Active 01-04 00:00: 00 [facility] Allergies, Adverse Reactions, Alerts Allergy Name Allergy Type Status Severity Reaction(s) Onset Date Inactive Date Treating Clinician Comments Source Amoxicil annie Propensi ty to adverse reaction s Active Swelling 10-24 00:00: 00 [facility] AMOXICIL ANNIE DRUG INGREDI Active Swelling 10-24 00:00: 00 [facility] Social History Social Habit Start Date Stop Date Quantity Comments Source Tobacco use and exposure 2019-01-04 00:00:00 2019-01-04 00:00:00 Smokeless tobacco non-user [facility] Sex Assigned At 1985 00:00:00 1985 00:00:00 [facility] Smoking Status Start Date Stop Date Source Unknown if ever smoked [facility] Never smoked tobacco [facility] Medications Ordered Medication Name Filled Medication Name Start Date Stop Date Current Medication? Ordering Clinician Indication Dosage Frequency Signature (SIG) Comments Components Source dextroamphe tamine-amph etamine (ADDERALL) 15 mg tablet 6-10 00:00: 00 Yes [id number] 15mg Take 1 tablet by mouth 2 (two) times daily. [facility] dextroamphe tamine-amph etamine (ADDERALL) 15 mg tablet 5-04 00:00: 00 Yes [id number] 15mg Take 1 tablet by mouth 2 (two) times daily. [facility] dextroamphe tamine-amph etamine (ADDERALL) 12.5 mg tablet 08-17 00:00: 09-26 00:00 :00 No [id number] 12.5mg Take 1 tablet by mouth 2 (two) times daily. [facility] Venlafaxine 37.5 mg TR24 3 00:00: 09-26 00:00 :00 No [id number] 1{tbl} Take 1 tablet by mouth every morning. Take Half (0.5) Tab by mouth every morning for anxiety [facility] dextroamphe tamine-amph etamine (ADDERALL) 12.5 mg tablet -18 00:00: 08-17 00:00 :00 No [id number] 12.5mg Take 1 tablet by mouth 2 (two) times daily. [facility] dextroamphe tamine-amph etamine (ADDERALL) 12.5 mg tablet 06-11 00:00: 07-13 00:00 :00 No [id number] 12.5mg Take 1 tablet by mouth 2 (two) times daily. [facility] tiZANidine 4 mg tablet 1- 00:00: 00 Yes [id number] 4mg Take 1 tablet by mouth every 6 (six) hours as needed (Muscle Spams). [facility] Venlafaxine 37.5 mg TR24 1- 00:00: 08-17 00:00 :00 No [id number] 1{tbl} Take 1 tablet by mouth every morning. [facility] dextroamphe tamine-amph etamine (ADDERALL) 12.5 mg tablet 1- 00:00: 06-11 00:00 :00 No [id number] 12.5mg Take 1 tablet by mouth 2 (two) times daily. [facility] dextroamphe tamine-amph etamine (ADDERALL) 5 mg tablet 8 00:00: 02-22 04:59 :00 No [id number] 5mg Take 1 tablet by mouth 2 (two) times daily for 30 days. [facility] tiZANidine 2 mg capsule 01-22 00:00: 00 02-22 04:59 :00 No [id number] 2mg Take 1 capsule by mouth 3 (three) times daily as needed for Muscle Spasms for up to 30 days. [facility] buPROPion 100 mg tablet 01-04 00:00: 00 Yes [id number] 100mg Take 1 tablet by mouth 3 (three) times daily. [facility] No known medications No Un jean marie [facility] Vital Signs Vital Name Observation Time Observation Value Comments S ource Systolic blood pressure 2019-01-22 21:26:00 129 mm[Hg] [facility] Diastolic blood pressure 2019-01-22 21:26:00 86 mm[Hg] [facility] Heart rate 2019-01-22 21:26:00 91 /min [facility] Body temperature 2019-01-22 21:26:00 37.28 [place] [facility] Respiratory rate 2019-01-22 21:26:00 20 /min [facility] Body height 2019-01-22 21:26:00 182.9 cm [facility] Body weight 2019-01-22 21:26:00 68.493 kg [facility] BMI 2019-01-22 21:26:00 20.48 kg/m2 [facility] Oxygen saturation in Arterial blood by Pulse oximetry 2019-01-22 21:26:00 100 /min [facility] Systolic blood pressure 2019-01-04 18:33:00 115 mm[Hg] [facility] Diastolic blood pressure 2019-01-04 18:33:00 80 mm[Hg] [facility] Heart rate 2019-01-04 18:33:00 82 /min [facility] Body temperature 2019-01-04 18:33:00 36.33 Jes[place] [facility] Respiratory rate 2019-01-04 18:33:00 16 /min [facility] Body height 2019-01-04 18:33:00 185.4 cm [facility] Body weight 2019-01-04 18:33:00 64.501 kg [facility] BMI 2019-01-04 18:33:00 18.76 kg/m2 [facility] Oxygen saturation in Arterial blood by Pulse oximetry 2019-01-04 18:33:00 99 /min [facility] Procedures Procedure Date / Time Performed Performing Clinician Source EXTERNAL PROVIDER RECORDS 2022-05-06 06:01:00 Do ctor Unassigned, [place] [facility] EXTERNAL PROVIDER RECORDS 2019-06-19 06:01:00 Do ctor Unassigned, [place] [facility] STATEMENT OF PATIENT FINANCIAL RESPONSIBILITY 2019-01-22 05:01:00 Doctor Unassigned, [place] [facility] ASSIGNMENT OF BENEFITS 2019-01-12 13:55:19 Docto r Unassigned, [place] [facility] ASSIGNMENT OF BENEFITS 2019-01-04 18:27:33 Docto r Unassigned, [place] [facility] Encounters Start Date/Time End Date/Time Encounter Type Admission Type Attending [facility] Facility Care Department Encounter ID Source 2022-06-17 16:17:51 2022-06-17 16:17:51 Outpatient SFA [id number] [id number] Ryan Cowan 2022-05-06 00:00:00 2022-05-06 00:00:00 Orders Only Doctor Unassigned, [place] [facility] 1.2.840.114 350.1.13.10 4.2.7.2.686 [id number] [facility] 2022-05-03 00:00:00 2022-05-03 00:00:00 Telephone Killian Gruber [facility] 1.2.840.114 350.1.13.10 4.2.7.2.686 [id number] [id number] [facility] 2019-12-31 12:40:00 2019-12-31 12:40:00 Outpatient R KILLIAN GRUBER [facility] [id number] [facility] 2019-10-29 00:00:00 2019-10-29 00:00:00 Refill Killian Gruber [facility] 1.0.114 350.1.13.10 4.2.7.2.686 [id number] 2019-10-29 00:00:00 2019-10-29 00:00:00 RefKillian Kumar [facility] 1.20.114 350.1.13.10 4.2.7.2.686 [id number] [facility] 2019-09-27 11:30:00 2019-09-27 11:30:00 Outpatient R TONY LIM [facility] [id number] [facility] 2019-09-27 08:06:59 2019-09-27 08:21:59 Telemedici ne Visit Tony Lim [facility] 1.2.114 350.1.13.10 4.2.7.2.686 [id number] [facility] 2019-09-24 15:20:00 2019-09-24 15:20:00 Outpatient R KILLIAN GRUBER [facility] [id number] [facility] 2019-09-24 00:00:00 2019-09-24 00:00:[address] [facility] 1..114 350.1.13.10 4.2.7.2.686 [id number] 2019-09-24 00:00:00 2019-09-24 00:00:[address] [facility] 1..114 350.1.13.10 4.2.7.2.686 [id number] [facility] 2019-08-18 07:03:22 2019-09-22 22:11:35 Telemedici ne Visit Killian Gruber [facility] 1.0.114 350.1.13.10 4.2.7.2.686 [id number] [facility] 2019-08-31 07:19:34 2019-08-31 17:46:48 Telemedici ne Visit Killian [facility] 1.2.840.114 350.1.13.10 4.2.7.2.686 [id number] [facility] 2019-08-31 15:40:00 2019-08-31 15:40:00 Outpatient R KILLIAN GRUBER [facility] [id number] [facility] 2019-08-20 00:00:00 2019-08-20 00:00:00 Telephone Killian Gruber [facility] 1.2.840.114 350.1.13.10 4.2.7.2.686 [id number] [facility] 2019-08-19 10:20:00 2019-08-19 10:20:00 Outpatient R KILLIAN GRUBER [facility] [id number] [facility] 2019-08-18 08:40:00 2019-08-18 08:40:00 Outpatient R KILLIAN GRUBER [facility] [id number] [facility] 2019-08-18 00:00:00 2019-08-18 00:00:00 Telephone Killian Gruber [facility] 1.2.840.114 350.1.13.10 4.2.7.2.686 [id number] [facility] 2019-08-13 00:00:00 2019-08-13 00:00:00 Telephone Killian Gruber [facility] 1.2.840.114 350.1.13.10 4.2.7.2.686 [id number] [facility] 2019-07-13 00:00:00 2019-07-13 00:00:00 Telephone Killian Gruber [facility] 1.2.840.114 350.1.13.10 4.2.7.2.686 [id number] [facility] 2019-07-06 00:00:00 2019-07-06 00:00:00 Refill Killian Gruber [facility] 1.2.840.114 350.1.13.10 4.2.7.2.686 [id number] [facility] 2019-06-19 00:00:00 2019-06-19 00:00:00 Orders Only Doctor Unassigned, [place] [facility] 1.2.840.114 350.1.13.10 4.2.7.2.686 [id number] [facility] 2019-06-10 00:00:00 2019-06-10 00:00:00 Refill Killian Gruber [facility] 1.2.840.114 350.1.13.10 4.2.7.2.686 [id number] [facility] 2019-06-09 00:00:00 2019-06-09 00:00:00 Telephone Killian Gruber [facility] 1.2.840.114 350.1.13.10 4.2.7.2.686 [id number] [facility] 2019-01-22 16:00:55 2019-01-22 17:01:23 Office Visit Killian Gruber [facility] 1.2.840.114 350.1.13.10 4.2.7.2.686 [id number] [facility] 2019-01-22 00:00:00 2019-01-22 00:00:00 Orders Only Doctor Unassigned, [place] [facility] 1.2.840.114 350.1.13.10 4.2.7.2.686 [id number] [facility] 2019-01-12 09:00:09 2019-01-12 13:34:22 Ancillary Visit Sherri Basilio Craig L [facility] 1.2.840.114 350.1.13.10 4.2.7.2.686 [id number] [facility] 2019-01-12 00:00:00 2019-01-12 00:00:00 Orders Only Doctor Unassigned, [place] [facility] 1.2.840.114 350.1.13.10 4.2.7.2.686 [id number] [facility] 2019-01-06 00:00:00 2019-01-06 00:00:00 Telephone Allyn Killian [facility] 1.2.840.114 350.1.13.10 4.2.7.2.686 [id number] [facility] 2019-01-04 13:26:13 2019-01-04 14:29:40 Office Visit Killian Gruber [facility] 1.2.840.114 350.1.13.10 4.2.7.2.686 [id number] [facility] 2019-01-04 00:00:00 2019-01-04 00:00:00 Orders Only Doctor Unassigned, [place] [facility] 1.2.840.114 350.1.13.10 4.2.7.2.686 [id number] [facility] Results Test Description Test Time Test Comments Results Result Co mments Source CBC W/AUTO DIFF WITH [id number] 03:59:30* Test Item Value Reference Range Interpretation Comme nts WBC (test code = 1001) 6.8 K/UL 3.5-11.0 RBC (test code = 1002) 4.25 M/UL 4.50-6.10 L HEMOGLOBIN (test code = 1003) 13.4 G/DL 13.5-17.0 L HEMATOCRIT (test code = 1004) 39.4 % 40.0-51.0 L MCV (test code = 1005) 92.7 fL 80.0-99.0 MCH (test code = 1006) 31.5 PG 25.0-33.0 MCHC (test code = 1007) 34.0 G/DL 31.0-36.0 RDW (test code = 1038) 12.4 % 11.5-15.0 NEUTROPHILS (test code = 1008) 65.9 % LYMPHOCYTES (test code = 1010) 25.5 % MONOCYTES (test code = 1011) 6.3 % EOSINOPHILS (test code = 1012) 1.2 % BASOPHILS (test code = 1013) 0.7 % IMMATURE GRANULOCYTES (test code = 1036) 0.4 % NUCLEATED RBCS (test code = 1065) 0.0 /100 WBC'S See_Comment [Automated messa ge] The system which generated this result transmitted reference range: 0.0. The reference range was not used to interpret this result as normal/abnormal. PLATELET COUNT (test code = 1015) 250 K/UL 130-400 ABSOLUTE NEUTROPHILS (test code = 1066) 4.49 K/UL 1.50-7.50 ABSOLUTE LYMPHOCYTES (test code = 1067) 1.74 K/UL 1.00-4.00 ABSOLUTE MONOCYTES (test code = 1068) 0.43 K/UL 0.20-1.00 ABSOLUTE EOSINOPHILS (test code = 1040) 0.08 K/UL 0.00-0.50 ABSOLUTE BASOPHILS (test code = 1069) 0.05 K/UL 0.00-0.20 ABS IMMATURE GRANULOCYTES (test code = 1020) 0.03 K/UL 0.00-0.10 ABS NUCLEATED RBCS (test code = 36840) 0.00 K/UL 0.00-0.11 COMPREHENSIVE METABOLIC [id number] 03:22:14* Test Item Value Reference Range Interpretation Comme nts GLUCOSE (test code = 2217) 119 MG/DL 70-99 H BUN (test code = 2208) 14 MG/DL 6-20 CREATININE (test code = 2214) 0.84 MG/DL 0.80-1.40 eGFR (2020 CKD-EPI) (test code = 40371) 118 ML/MIN/1.73 >60 CALC BUN/CREAT (test code = 2234) 17 RATIO 6-28 SODIUM (test code = 2230) 143 MEQ/L 133-146 POTASSIUM (test code = 2227) 4.2 MEQ/L 3.5-5.4 CHLORIDE (test code = 2214) 107 MEQ/L 95-107 CARBON DIOXIDE (test code = 2205) 26 MEQ/L 19-31 CALCIUM (test code = 2208) 9.4 MG/DL 8.5-10.5 PROTEIN, TOTAL (test code = 2228) 7.5 G/DL 6.1-8.3 ALBUMIN (test code = 2200) 4.6 G/DL 3.5-5.2 CALC GLOBULIN (test code = 2239) 2.9 G/DL 1.9-3.7 CALC A/G RATIO (test code = 2233) 1.6 RATIO 1.0-2.6 BILIRUBIN, TOTAL (test code = 2206) 0.3 MG/DL See_Comment [Automated me ssage] The system which generated this result transmitted reference range: <=1.2. The reference range was not used to interpret this result as normal/abnormal. ALKALINE PHOSPHATASE (test code = 2203) 83 U/L 40-112 AST (test code = 2217) 21 U/L 9-50 ALT (test code = 2218) 23 U/L 5-50 LIPID [id number] 03:22:14* Test Item Value Reference Range Interpretation Comme nts CHOLESTEROL (test code = 2209) 140 MG/DL <200 TRIGLYCERIDES (test code = 2231) 98 MG/DL <150 HDL CHOLESTEROL (test code = 2219) 68 MG/DL >39 CALC LDL CHOL (test code = 2236) 54 MG/DL <100 NOTE: CALCULATED LDL IS BASED ON CJ-ANGULO METHOD WHICHINCLUDES ADJUSTABLE TRIGLYCERIDE:VLDL CHOLESTEROL RATIO.THIS FACTOR VARIES BY MEASURED TRIGLYCERIDE AND NON-HDLCHOLESTEROL CONCENTRATIONS WITH INCREASED CALCULATED LDL SEENIN HIGHER TRIGLYCERIDE OR LOWER NON-HDL SPECIMENS. FOR MOREINFORMATION, SEE CLIENT ANNOUNCEMENT AT [email or web address] RATIO LDL/HDL (test code = 2238) 0.79 RATIO <3.55
--- NOTE | 2024-02-18 13:31 | ER ---
Nurse's Notes [facility] Name: Liam Neal Age: 38 yrs Sex: Male : 1985 Arrival Date: 02/18/2024 Time: 10:41 Bed 12 Private MD: Diagnosis: Pain in right knee Presentation: 02/17 11:18 Chief complaint: Patient states: STATES ON FRIDAY WAS WORKING AND JUMPED DOWN ABOUT 3 db FEET AND FELT RIGHT KNEE POP. COMPLAINS OF PAIN WHEN BENDING DOWN. STATES YESTERDAY AT WORK BENT DOWN AND FELT A POP. STEADY GATE. DENIES PAIN WITH AMBULATION. Coronavirus screen: Client denies travel out of the [place] in the last 14 days. At this time, the client does not indicate any symptoms associated with coronavirus-19. Ebola Screen: Patient negative for fever greater than or equal to 101.5 degrees Fahrenheit, and additional compatible Ebola Virus Disease symptoms Patient denies exposure to infectious person. Patient denies travel to an Ebola-affected area in the 21 days before illness onset. No symptoms or risks identified at this time. Initial Sepsis Screen: Does the patient meet any 2 criteria? No. Patient's initial sepsis screen is negative. Does the patient have a suspected source of infection? No. Patient's initial sepsis screen is negative. Risk Assessment: Do you want to hurt yourself or someone else? Patient reports no desire to harm self or others. Onset of symptoms was February 18, 2024. 11:18 Method Of Arrival: Ambulatory db 11:18 Acuity: MIKA 4 db Triage Assessment: 11:20 General: Appears in no apparent distress. comfortable, Behavior is calm, cooperative, db appropriate for age. Pain: Complains of pain in right leg. Neuro: Level of Consciousness is awake, alert, obeys commands, Oriented to person, place, time, situation. Musculoskeletal: Circulation, motion, and sensation intact. Capillary refill < 3 seconds, Range of motion: limited in right knee. Injury Description: PRESSURE. Historical: - Allergies: 11:20 Amoxicillin; db - PMHx: 11:20 depressive disorder; db - PSHx: 11:20 left arm surgery; db - Immunization history:: Adult Immunizations unknown. - Infectious Disease History:: Denies. - Social history:: Smoking status: Patient reports the use of cigarette tobacco products, smokes one pack cigarettes per day. Screenin:01 [facility] ED Fall Risk Assessment (Adult) History of falling in the last 3 months, me1 including since admission No falls in past 3 months (0 pts) Confusion or Disorientation No (0 pts) Intoxicated or Sedated No (0 pts) Impaired Gait No (0 pts) Mobility Assist Device Used No (0 pt) Altered Elimination No (0 pt) Score/Fall Risk Level 0 - 2 = Low Risk Maintained a safe environment, Provided non-skid footwear, Hourly rounding (assess needs \T\ fall precautionary measures) done. Abuse screen: Denies threats or abuse. Nutritional screening: No deficits noted. Tuberculosis screening: No symptoms or risk factors identified. Assessment: 11:58 General: Appears comfortable, well groomed, well developed, well nourished, Behavior is me1 calm, cooperative, appropriate for age, Reports STATES ON FRIDAY WAS WORKING AND JUMPED DOWN ABOUT 3 FEET AND FELT RIGHT KNEE POP. COMPLAINS OF PAIN WHEN BENDING DOWN. STATES YESTERDAY AT WORK BENT DOWN AND FELT A POP. STEADY GATE. DENIES PAIN WITH AMBULATION. 12:00 Pain: Complains of pain in right knee Pain does not radiate. Pain currently is 2 out of me1 10 on a pain scale. at worst was 8 out of 10 on a pain scale. Pain began suddenly, Is intermittent. Neuro: Level of Consciousness is awake, alert, obeys commands, Oriented to person, place, time, situation, Appropriate for age. Cardiovascular: Patient's skin is warm and dry. Respiratory: Airway is patent Respiratory effort is even, unlabored, Respiratory pattern is regular, symmetrical. GI: No signs and/or symptoms were reported involving the gastrointestinal system. : No signs and/or symptoms were reported regarding the genitourinary system. EENT: No signs and/or symptoms were reported regarding the EENT system. Derm: Skin is intact, is healthy with good turgor, Skin is pink, warm \T\ dry. Musculoskeletal: Reports pain in right knee. Injury Description: STATES ON FRIDAY WAS WORKING AND JUMPED DOWN ABOUT 3 FEET AND FELT RIGHT KNEE POP. COMPLAINS OF PAIN WHEN BENDING DOWN. STATES YESTERDAY AT WORK BENT DOWN AND FELT A POP. STEADY GATE. DENIES PAIN WITH AMBULATION. Vital Signs: 11:18 BP 110 / 68; Pulse 71; Resp 16; Temp 98.7; Pulse Ox 99% ; Weight 65.77 kg; Height 6 ft. db 1 in. ; Pain 5/10; 13:39 BP 108 / 69; Pulse 73; Resp 16; Temp 98.1; Pulse Ox 100% ; me1 11:18 Body Mass Index 19.13 (65.77 kg, 185.42 cm) db 11:18 Pain Scale: Adult db ED Course: 10:44 Patient arrived in ED. mr 10:58 Yeni Pierre MD is Attending Physician. sd2 11:20 Triage completed. db 11:20 Arm band placed on Patient placed in an exam room. db 11:45 XRAY Knee RIGHT 3 view In Process Unspecified. EDUT 11:57 Belinda Rodriguez, RN is Primary Nurse. me1 12:01 Patient has correct armband on for positive identification. Bed in low position. Call me1 light in reach. Side rails up X 1. Provided Education on: POC. Verbalized understanding. . 12:01 No provider procedures requiring assistance completed. Patient did not have IV access me1 during this emergency room visit. 13:30 Raghav Wei MD is Referral Physician. sd2 Administered Medications: No medications were administered Medication: 13:39 VIS not applicable for this client. me1 Outcome: 13:31 Discharge ordered by . sd2 13:41 Discharged to home ambulatory, me1 13:41 Condition: stable 13:41 Discharge instructions given to patient, Instructed on discharge instructions, follow up and referral plans. medication usage, Demonstrated understanding of instructions, follow-up care, medications, Prescriptions given X 1, 13:41 Patient left the ED. me1 Signatures: Dispatcher [employer] EDUT Radha [place], Reg Reg Yeni Pierre MD MD sd2 Twila Lara, RN RN db Belinda Rodriguez, AISHA RN me1 Corrections: (The following items were deleted from the chart) 11:58 11:18 Chief complaint: Patient states: STATES ON FRIDAY WAS WORKING AND JUMPED DOWN me1 ABOUT 3 FEET AND FELT RIGHT KNEE POP. COMPLAINS OF PAIN WHEN BENDING DOWN. STATES YESTERDAY AT WORK BENT DOWN AND FELT A POP. STEADY GATE. DENIES PAIN WITH AMBULATION db
--- NOTE | 2024-02-18 13:31 | EDPHYS ---
Physician Documentation [facility] Name: Liam Neal Age: 38 yrs Sex: Male : 1985 Arrival Date: 02/18/2024 Time: 10:41 Bed 12 Private MD: ED Physician Yeni Pierre HPI: 02/17 11:28 This 38 yrs old Male presents to ER via Ambulatory with complaints of Knee Injury. sd2 11:28 38 yo M presents with CC of R knee pain s/p jumping off a roof onto scaffolding and sd2 feeling a pop in that leg on Friday. Reports pain and swelling initially but improved over the weekend then he did the same maneuver again yesterday and felt it pop again. He has been able to ambulate on it and pain is improved with Aleve. . Historical: - Allergies: 11:20 Amoxicillin; db - PMHx: 11:20 depressive disorder; db - PSHx: 11:20 left arm surgery; db - Immunization history:: Adult Immunizations unknown. - Infectious Disease History:: Denies. - Social history:: Smoking status: Patient reports the use of cigarette tobacco products, smokes one pack cigarettes per day. ROS: 11:28 Skin: Negative for injury, rash, and discoloration, sd2 11:28 MS/extremity: Positive for injury or acute deformity, pain, swelling, Negative for deformity, paresthesias, Exam: 11:28 Constitutional: This is a well developed, well nourished patient who is awake, alert, sd2 and in no acute distress. Head/Face: Normocephalic, atraumatic. Skin: Warm, dry with normal turgor. Normal color with no rashes, no lesions, and no evidence of cellulitis. MS/ Extremity: Pulses equal, no cyanosis. Neurovascular intact. Full, normal range of motion. No swelling or deformity appreciated. Anterior drawer sign negative. No joint laxity or instability. Psych: Awake, alert, with orientation to person, place and time. Behavior, mood, and affect are within normal limits. Vital Signs: 11:18 BP 110 / 68; Pulse 71; Resp 16; Temp 98.7; Pulse Ox 99% ; Weight 65.77 kg; Height 6 ft. db 1 in. ; Pain 5/10; 13:39 BP 108 / 69; Pulse 73; Resp 16; Temp 98.1; Pulse Ox 100% ; me1 11:18 Body Mass Index 19.13 (65.77 kg, 185.42 cm) db 11:18 Pain Scale: Adult db MDM: 11:20 Patient medically screened. sd2 11:28 Differential Diagnosis fracture, contusion, sprain, strain, ligamentous injury among sd2 others. Data reviewed: vital signs, nurses notes, radiologic studies. 13:15 Counseling: I had a detailed discussion with the patient and/or guardian regarding the sd2 historical points, exam findings, and any diagnostic results supporting the discharge/admit diagnosis, radiology results, the need for outpatient follow up, to return to the emergency department if symptoms worsen or persist or if there are any questions or concerns that arise at home. ED course: Knee XR negative. Pt advised of results. Pain well controlled. He is ambulatory. Advised to follow up with orthopedics for further evaluation. Verbalizes understanding of discharge plan and strict return precautions. . 02/17 11:23 Order name: XRAY Knee RIGHT 3 view sd2 Administered Medications: No medications were administered Disposition Summary: 02/18/24 13:31 Discharge Ordered Problem: new sd2 Symptoms: have improved sd2 Condition: Stable sd2 Diagnosis - Pain in right knee sd2 Followup: sd2 - With: Raghav Wei MD - When: 2 - 3 days - Reason: Recheck today's complaints, Continuance of care Discharge Instructions: - Discharge Summary Sheet sd2 Forms: - Medication Reconciliation Form sd2 - Antibiotic Education sd2 - Prescription Opioid Use sd2 - Patient Portal Instructions sd2 - Leadership Thank You Letter sd2 Prescriptions: - Ibuprofen 600 mg Oral tablet - take 1 tablet ORAL route every 6 hours As needed take with food; 15 tablet; sd2 Refills: 0, Product Selection Permitted Signatures: Dispatcher [employer] Yeni Peacock MD MD sd2 Twila Lara RN RN db
[2024-02-18 13:48] VITALS: BP 108/69; TEMP 98.1; O2SAT 100
--- NOTE | 2024-02-18 13:48 | RAD REPORT ---
Exam:Knee Right 3 View HISTORY: Right knee pain FINDINGS: No fracture or dislocation seen If the patient continues to have symptoms to suggest an occult fracture, ligamentous or meniscal inju ry then MRI would be recommended
== END 2024-02-18 13:41 | disposition home or self-care (01) ==
LOC: ER 10:41
DX: M25.561 Pain in right knee (principal)
CPT/HCPCS: 99283

== ENCOUNTER 2024-03-23 17:30 | Emergency (ER) | payer SELFPAY ==
--- OUTSIDE RECORDS SUMMARY | 2024-03-23 17:33 | XMS REPORT | Continuity of Care Document ---
Author Name Unknown Address [address] [facility] [address] [place] [address] [facility] thconnect Address [address] [facility] [place] [address] Care Team Providers Care Diamond Sawer Name Role Phone Keren Gruber MD Primary Care Physician + [phone] Doctor Unassigned, [place] Attending Clinician U Keren Silva MD Attending Clinician [phone] KEREN GRUBER Attending Clinician Unavailable TONY LIM Attending Clinician Maricruz Lim MD, Tony Krause Attending Clinician + [phone] Sherri Basilio PT Attending Clinician Unavailable Pedro Pablo Benitez MD Attending Clinician [phone] Problems Condition Name Condition Details Condition Category Status Onset Date Resolution Date Last Treatment Date Treating Clinician Comments Source Chronic pain syndrome Chronic pain syndrome Disease Active 08-17 00:00: 00 [facility] Current every day smoker Current every day smoker Disease Active 08-17 00:00: 00 [facility] Attention deficit hyperactiv ity disorder (ADHD), combined type Attention deficit hyperactiv ity disorder (ADHD), combined type Disease Active 01-04 00:00: 00 [facility] Neck pain Neck pain Disease Active 01-04 00:00: 00 [facility] Chronic pain of both shoulders Chronic pain of both shoulders Disease Active 01-04 00:00: 00 [facility] Chronic midline back pain, unspecifie d back location Chronic midline back pain, unspecifie d back location Disease Active 01-04 00:00: 00 [facility] Muscle spasms of both lower extremitie s Muscle spasms of both lower extremitie s Disease Active 01-04 00:00: 00 [facility] Anxiety Anxiety Disease Active 01-04 00:00: 00 [facility] Chronic pain of both shoulders Chronic pain of both shoulders Disease Active 01-04 00:00: 00 [facility] Muscle spasms of both lower extremitie s Muscle spasms of both lower extremitie s Disease Active 01-04 00:00: 00 [facility] Allergies, Adverse Reactions, Alerts Allergy Name Allergy Type Status Severity Reaction(s) Onset Date Inactive Date Treating Clinician Comments Source Amoxicil annie Propensi ty to adverse reaction s Active Swelling 10-24 00:00: 00 [facility] AMOXICIL ANNIE DRUG INGREDI Active Swelling 10-24 00:00: 00 [facility] Social History Social Habit Start Date Stop Date Quantity Comments Source Tobacco use and exposure 2019-01-04 00:00:00 2019-01-04 00:00:00 Smokeless tobacco non-user [facility] Sex Assigned At 1985 00:00:00 1985 00:00:00 [facility] Smoking Status Start Date Stop Date Source Unknown if ever smoked [facility] Never smoked tobacco [facility] Medications Ordered Medication Name Filled Medication Name Start Date Stop Date Current Medication? Ordering Clinician Indication Dosage Frequency Signature (SIG) Comments Components Source dextroamphe tamine-amph etamine (ADDERALL) 15 mg tablet 6-10 00:00: 00 Yes [id number] 15mg Take 1 tablet by mouth 2 (two) times daily. [facility] dextroamphe tamine-amph etamine (ADDERALL) 15 mg tablet 5-04 00:00: 00 Yes [id number] 15mg Take 1 tablet by mouth 2 (two) times daily. [facility] dextroamphe tamine-amph etamine (ADDERALL) 12.5 mg tablet 08-17 00:00: 09-26 00:00 :00 No [id number] 12.5mg Take 1 tablet by mouth 2 (two) times daily. [facility] Venlafaxine 37.5 mg TR24 08-17 00:00: 09-26 00:00 :00 No [id number] 1{tbl} Take 1 tablet by mouth every morning. Take Half (0.5) Tab by mouth every morning for anxiety [facility] dextroamphe tamine-amph etamine (ADDERALL) 12.5 mg tablet 18 00:00: 00 08-17 00:00 :00 No [id number] 12.5mg Take 1 tablet by mouth 2 (two) times daily. [facility] dextroamphe tamine-amph etamine (ADDERALL) 12.5 mg tablet 06-11 00:00: 07-13 00:00 :00 No [id number] 12.5mg Take 1 tablet by mouth 2 (two) times daily. [facility] tiZANidine 4 mg tablet 1 00:00: 00 Yes [id number] 4mg Take 1 tablet by mouth every 6 (six) hours as needed (Muscle Spams). [facility] Venlafaxine 37.5 mg 24 1- 00:00: 08-17 00:00 :00 No [id number] 1{tbl} Take 1 tablet by mouth every morning. [facility] dextroamphe tamine-amph etamine (ADDERALL) 12.5 mg tablet 1 00:00: 06-11 00:00 :00 No [id number] 12.5mg Take 1 tablet by mouth 2 (two) times daily. [facility] dextroamphe tamine-amph etamine (ADDERALL) 5 mg tablet 8 00:00: 00 02-22 04:59 :00 No [id number] 5mg Take 1 tablet by mouth 2 (two) times daily for 30 days. [facility] tiZANidine 2 mg capsule 01-22 00:00: 00 02-22 04:59 :00 No [id number] 2mg Take 1 capsule by mouth 3 (three) times daily as needed for Muscle Spasms for up to 30 days. [facility] buPROPion 100 mg tablet 01-04 00:00: 00 Yes [id number] 100mg Take 1 tablet by mouth 3 (three) times daily. [facility] No known medications No Un jean marie [facility] Vital Signs Vital Name Observation Time Observation Value Comments S ource Systolic blood pressure 2019-01-22 21:26:00 129 mm[Hg] [facility] Diastolic blood pressure 2019-01-22 21:26:00 86 mm[Hg] [facility] Heart rate 2019-01-22 21:26:00 91 /min [facility] Body temperature 2019-01-22 21:26:00 37.28 [place] [facility] Respiratory rate 2019-01-22 21:26:00 20 /min [facility] Body height 2019-01-22 21:26:00 182.9 cm [facility] Body weight 2019-01-22 21:26:00 68.493 kg [facility] BMI 2019-01-22 21:26:00 20.48 kg/m2 [facility] Oxygen saturation in Arterial blood by Pulse oximetry 2019-01-22 21:26:00 100 /min [facility] Systolic blood pressure 2019-01-04 18:33:00 115 mm[Hg] [facility] Diastolic blood pressure 2019-01-04 18:33:00 80 mm[Hg] [facility] Heart rate 2019-01-04 18:33:00 82 /min [facility] Body temperature 2019-01-04 18:33:00 36.33 [place] [facility] Respiratory rate 2019-01-04 18:33:00 16 /min [facility] Body height 2019-01-04 18:33:00 185.4 cm [facility] Body weight 2019-01-04 18:33:00 64.501 kg [facility] BMI 2019-01-04 18:33:00 18.76 kg/m2 [facility] Oxygen saturation in Arterial blood by Pulse oximetry 2019-01-04 18:33:00 99 /min [facility] Procedures Procedure Date / Time Performed Performing Clinician Source EXTERNAL PROVIDER RECORDS 2022-05-06 06:01:00 Do ctor Unassigned, [place] [facility] EXTERNAL PROVIDER RECORDS 2019-06-19 06:01:00 Do ctor Unassigned, [place] [facility] STATEMENT OF PATIENT FINANCIAL RESPONSIBILITY 2019-01-22 05:01:00 Doctor Unassigned, [place] [facility] ASSIGNMENT OF BENEFITS 2019-01-12 13:55:19 Docto r Unassigned, [place] [facility] ASSIGNMENT OF BENEFITS 2019-01-04 18:27:33 Docto r Unassigned, [place] [facility] Encounters Start Date/Time End Date/Time Encounter Type Admission Type Attending Clinicians Care Facility Care Department Encounter ID Source 2022-06-17 16:17:51 2022-06-17 16:17:51 Outpatient [facility] [id number] Ryan Cowan 2022-05-06 00:00:00 2022-05-06 00:00:00 Orders Only Doctor Unassigned, [place] [facility] 1.2.840.114 350.1.13.10 4.2.7.2.686 [id number] [facility] 2022-05-03 00:00:00 2022-05-03 00:00:00 Telephone Keren Gruber [facility] 1.2.840.114 350.1.13.10 4.2.7.2.686 [id number] [facility] 2019-12-31 12:40:00 2019-12-31 12:40:00 Outpatient R KEREN GRUBER [facility] [id number] [facility] 2019-10-29 00:00:00 2019-10-29 00:00:00 Refill Keren Gruber [facility] Building 1.84.114 350.1.13.10 4.2.7.2.686 [id number] 2019-10-29 00:00:00 2019-10-29 00:00:00 RefKeren Kumar [facility] 1.2.114 350.1.13.10 4.2.7.2.686 [id number] [facility] 2019-09-27 11:30:00 2019-09-27 11:30:00 Outpatient R TONY LIM [facility] [id number] [facility] 2019-09-27 08:06:59 2019-09-27 08:21:59 Telemedici ne Visit Tony Lim [facility] Building 1..114 350.1.13.10 4.2.7.2.686 [id number] [facility] 2019-09-24 15:20:00 2019-09-24 15:20:00 Outpatient R KEREN GRUBER [facility] [id number] [facility] 2019-09-24 00:00:00 2019-09-24 00:00:00 Refill Tony Lim [facility] [address] 1..114 350.1.13.10 4.2.7.2.686 [id number] 2019-09-24 00:00:00 2019-09-24 00:00:00 Refill Tony Lim eliane [facility] [address] 1..114 350.1.13.10 4.2.7.2.686 [id number] [facility] 2019-08-18 07:03:22 2019-09-22 22:11:35 Telemedici ne Visit Keren Gruber [facility] 1.2.114 350.1.13.10 4.2.7.2.686 [id number] [facility] 2019-08-31 07:19:34 2019-08-31 17:46:48 [facility]ici ne [facility] 1.2.840.114 350.1.13.10 4.2.7.2.686 [id number] [facility] 2019-08-31 15:40:00 2019-08-31 15:40:00 Outpatient R KEREN GRUBER [facility] [id number] [facility] 2019-08-20 00:00:00 2019-08-20 00:00:00 Telephone Keren Gruber [facility] 1.2.840.114 350.1.13.10 4.2.7.2.686 [id number] [facility] 2019-08-19 10:20:00 2019-08-19 10:20:00 Outpatient R KEREN GRUBER [facility] [id number] [facility] 2019-08-18 08:40:00 2019-08-18 08:40:00 Outpatient R KEREN GRUBER [facility] [id number] [facility] 2019-08-18 00:00:00 2019-08-18 00:00:00 Telephone Keren Gruber [facility] 1.2.840.114 350.1.13.10 4.2.7.2.686 [id number] [facility] 2019-08-13 00:00:00 2019-08-13 00:00:00 Telephone Keren Gruber [facility] 1.2.840.114 350.1.13.10 4.2.7.2.686 [id number] [facility] 2019-07-13 00:00:00 2019-07-13 00:00:00 [facility] 1.2.840.114 350.1.13.10 4.2.7.2.686 [id number] [facility] 2019-07-06 00:00:00 2019-07-06 00:00:00 Refill Keren Gruber [facility] 1.2.840.114 350.1.13.10 4.2.7.2.686 [id number] [facility] 2019-06-19 00:00:00 2019-06-19 00:00:00 Orders Only Doctor Unassigned, [place] [facility] 1.2.840.114 350.1.13.10 4.2.7.2.686 [id number] [facility] 2019-06-10 00:00:00 2019-06-10 00:00:00 Refill Keren Gruber [facility] 1.2.840.114 350.1.13.10 4.2.7.2.686 [id number] [facility] 2019-06-09 00:00:00 2019-06-09 00:00:00 Telephone Keren Gruber [facility] 1.2.840.114 350.1.13.10 4.2.7.2.686 [id number] [facility] 2019-01-22 16:00:55 2019-01-22 17:01:23 Office Visit Keren Gruber [facility] 1.2.840.114 350.1.13.10 4.2.7.2.686 [id number] [facility] 2019-01-22 00:00:00 2019-01-22 00:00:00 Orders Only Doctor Unassigned, [place] [facility] 1.2.840.114 350.1.13.10 4.2.7.2.686 [id number] [facility] 2019-01-12 09:00:09 2019-01-12 13:34:22 Ancillary Visit Sherri Basilio Craig L [facility] 1.2.840.114 350.1.13.10 4.2.7.2.686 [id number] [facility] 2019-01-12 00:00:00 2019-01-12 00:00:00 Orders Only Doctor Unassigned, [place] [facility] 1.2840.114 350.1.13.10 4.2.7.2.686 [id number] [facility] 2019-01-06 00:00:00 2019-01-06 00:00:00 Telephone Allyn Keren [facility] 1.2.840.114 350.1.13.10 4.2.7.2.686 [id number] [facility] 2019-01-04 13:26:13 2019-01-04 14:29:40 Office Visit Keren Gruber [facility] 1.2.840.114 350.1.13.10 4.2.7.2.686 [id number] [facility] 2019-01-04 00:00:00 2019-01-04 00:00:00 Orders Only Doctor Unassigned, [place] [facility] 1.2.840.114 350.1.13.10 4.2.7.2.686 [id number] [facility] Results Test Description Test Time Test Comments Results Result Co mments Source CBC W/AUTO DIFF WITH [id number] 03:59:30* Test Item Value Reference Range Interpretation [...] 0.00-0.10 ABS NUCLEATED RBCS (test code = 62336) 0.00 K/UL 0.00-0.11 COMPREHENSIVE METABOLIC [id number] 03:22:14* Test Item Value Reference Range Interpretation Comme nts GLUCOSE (test code = 2217) 119 MG/DL 70-99 H BUN (test code = 2208) 14 MG/DL 6-20 CREATININE (test code = 2214) 0.84 MG/DL 0.80-1.40 eGFR (2020 CKD-EPI) (test code = ) 118 ML/MIN/1.73 >60 CALC BUN/CREAT (test code [...] code = 2218) 23 U/L 5-50 LIPID [id number] 03:22:14* Test Item Value Reference Range Interpretation Comme nts CHOLESTEROL (test code = 2209) 140 MG/DL <200 TRIGLYCERIDES (test code = 223) 98 MG/DL <150 HDL CHOLESTEROL (test code = 222) 68 MG/DL >39 CALC LDL CHOL (test code = 2236) 54 MG/DL <100 NOTE: CALCULATED LDL IS BASED ON CJ-ANGULO METHOD WHICHINCLUDES ADJUSTABLE TRIGLYCERIDE:VLDL CHOLESTEROL RATIO.THIS FACTOR VARIES BY MEASURED TRIGLYCERIDE AND NON-HDLCHOLESTEROL CONCENTRATIONS WITH INCREASED CALCULATED LDL SEENIN HIGHER TRIGLYCERIDE OR LOWER NON-HDL SPECIMENS. FOR MOREINFORMATION, SEE CLIENT ANNOUNCEMENT AT [email or web address] LDL/HDL (test code = 2238) 0.79 RATIO <3.55
[2024-03-23] MEDS ORDERED: FLUORESCEIN SODIUM 1 MG/WRAP ONE (18:03)
[2024-03-23] MEDS ORDERED: TETRACAINE HCL 0.5% 4ML OPTH ONE (18:03)
[2024-03-23] MEDS ORDERED: NA CHLORIDE 0.9% 500 ML ONE (18:20)
--- NOTE | 2024-03-23 18:27 | EDPHYS ---
Physician Documentation [facility] Name: Liam Neal Age: 38 yrs Sex: Male : 1985 Arrival Date: 03/23/2024 Time: 17:30 Bed 23 Private MD: ED Physician Cherise Rothman HPI: 03/23 18:17 This 38 yrs old Male presents to ER via Ambulatory with complaints of Foreign Body In sp3 Eye - right a piece of wood or sheetrock. 18:17 38-year-old male with no significant past medical history presents with right eye pain sp3 after "a piece of water she rock flew into my eye while I was working". Patient flushed his eye out prior to arrival with tap water. No gross object identified. Vision is intact as reported by him. Review systems otherwise negative for headache, neck pain, other eye injury, other facial injury, or any other signs or symptoms on ROS at this time.. Historical: - Allergies: 18:07 Amoxicillin; ss - PMHx: 18:07 depressive disorder; ss - PSHx: 18:07 left arm surgery; ss - Immunization history:: Last tetanus immunization: < 10 years ago. - Infectious Disease History:: Denies. ROS: 18:24 Constitutional: Negative for fever, chills, and weight loss, ENT: Negative for injury, sp3 pain, and discharge, Neck: Negative for injury, pain, and swelling, Cardiovascular: Negative for chest pain, palpitations, and edema, Respiratory: Negative for shortness of breath, cough, wheezing, and pleuritic chest pain, Abdomen/GI: Negative for abdominal pain, nausea, vomiting, diarrhea, and constipation, Back: Negative for injury and pain, MS/Extremity: Negative for injury and deformity, Skin: Negative for injury, rash, and discoloration, Neuro: Negative for headache, weakness, numbness, tingling, and seizure, Psych: Negative for depression, anxiety, suicide ideation, homicidal ideation, and hallucinations, Allergy/Immunology: Negative for hives, rash, and allergies, Endocrine: Negative for neck swelling, polydipsia, polyuria, polyphagia, and marked weight changes, Hematologic/Lymphatic: Negative for swollen nodes, abnormal bleeding, and unusual bruising, 18:24 All other systems are negative, Exam: 18:24 Constitutional: This is a well developed, well nourished patient who is awake, alert, sp3 and in no acute distress. Head/Face: Normocephalic, atraumatic. ENT: Nares patent. No nasal discharge, no septal abnormalities noted. External auditory canals are clear. Oropharynx with no redness, swelling, or masses, exudates, or evidence of obstruction, uvula midline. Mucous membranes moist. Neck: Trachea midline, no thyromegaly or masses palpated, and no cervical lymphadenopathy. Supple, full range of motion without nuchal rigidity, or vertebral point tenderness. No Meningismus. Chest/axilla: Normal chest wall appearance and motion. Nontender with no deformity. No lesions are appreciated. Cardiovascular: Regular rate and rhythm with a normal S1 and S2. No gallops, murmurs, or rubs. Normal PMI, no JVD. No pulse deficits. Respiratory: Lungs have equal breath sounds bilaterally, clear to auscultation and percussion. No rales, rhonchi or wheezes noted. No increased work of breathing, no retractions or nasal flaring. Neuro: Awake and alert, GCS 15, oriented to person, place, time, and situation. Cranial nerves II-XII grossly intact. Motor strength 5/5 in all extremities. Sensory grossly intact. Cerebellar exam normal. Normal gait. 18:24 Eyes: Anterior chamber clear without hyphema. Pupil equal round and reactive light bilaterally. Tetracaine placed and fluorescein dye demonstrates corneal abrasion at 12 o'clock position of the right eye. No foreign body identified. Bronson sign negative.. Vital Signs: 18:05 BP 128 / 88; Pulse 86; Resp 20; Temp 98.4(TE); Pulse Ox 100% ; Height 6 ft. 1 in. ; ss Pain 7/10; 18:05 Pain Scale: Adult ss MDM: 18:02 Medical Screening Exam initiated sp3 18:25 Data reviewed: vital signs, nurses notes. ED course: 38-year-old male with foreign body sp3 sensation now resolved and corneal abrasion to the right eye. No obvious foreign body identified. Slit-lamp not available at this facility therefore all exam done with Gray lamp with low-level magnification. Patient will be flushed with Jackie lens 500 mL normal saline and discharged home on antibiotic and steroid combination. Follow-up with Dr. [facility].. 03/23 18:27 Order name: Eye Tray; Complete Time: 18:28 ss 03/23 18:27 Order name: Fluoresene Opth strip; Complete Time: 18: ss 03/23 18: Order name: Misc. Order: Jackie lens; Complete Time: 18: ss Administered Medications: 18:25 Drug: NS 0.9% IV 500 ml IV at bolus in Other once; to be given as a bolus to R eye VIA ss jackie lens {Note: R eye via jackie lens as ordered.} Route: IV; Rate: bolus; Site: Other; 18:49 Follow up: IV Status: Completed infusion; irrigation completed at this time 500 mL 18: Drug: Tetracaine Ophthalmic Drops 0.5 % 1 drops Ophthalmic once Route: Ophthalmic; Site: right eye; Disposition Summary: 03/23/24 18:27 Discharge Ordered Notes: Location: Home sp3 Condition: Stable sp3 Diagnosis - Corneal abrasion right eye, foreign body right eye resolved sp3 Followup: sp3 - With: Efren Oseguera MD - When: Upon discharge from the Emergency Department - Reason: Recheck today's complaints Discharge Instructions: - Discharge Summary Sheet sp3 - Corneal Abrasion sp3 Forms: - Medication Reconciliation Form sp3 - Antibiotic Education sp3 - Prescription Opioid Use sp3 - Patient Portal Instructions sp3 - Leadership Thank You Letter sp3 Prescriptions: - Maxitrol 3.5mg/mL-10,000 unit/mL-0.1 % Ophthalmic drops, suspension - instill 2 drop OPHTHALMIC route every 3 hours; 2.5 drop; Refills: 0, Product sp3 Selection Permitted Signatures: Alejandra Jane RN RN Cherise Rothman MD MD sp3 Corrections: (The following items were deleted from the chart) 18: 18:27 Misc. Order ordered. [facility]
--- NOTE | 2024-03-23 18:27 | ER ---
Nurse's Notes [facility] Name: Liam Neal Age: 38 yrs Sex: Male : 1985 Arrival Date: 03/23/2024 Time: 17:30 Bed 23 Private MD: Diagnosis: Corneal abrasion right eye, foreign body right eye resolved Presentation: 03/23 18:05 Chief complaint: Patient states: foreign body in R eye, reportedly a piece of wood or ss sheetrock that occurred today. Coronavirus screen: Client denies travel out of the [place] in the last 14 days. Ebola Screen: Patient denies exposure to infectious person. Patient denies travel to an Ebola-affected area in the 21 days before illness onset. Initial Sepsis Screen: Does the patient meet any 2 criteria? No. Patient's initial sepsis screen is negative. Does the patient have a suspected source of infection? No. Patient's initial sepsis screen is negative. Risk Assessment: Do you want to hurt yourself or someone else? Patient reports no desire to harm self or others. Onset of symptoms was March 23, 2024. 18:05 Method Of Arrival: Ambulatory ss 18:05 Acuity: MIKA 4 ss Historical: - Allergies: 18:07 Amoxicillin; ss - PMHx: 18:07 depressive disorder; ss - PSHx: 18:07 left arm surgery; ss - Immunization history:: Last tetanus immunization: < 10 years ago. - Infectious Disease History:: Denies. Screenin:07 Abuse screen: Denies threats or abuse. Denies injuries from another. Nutritional ss screening: No deficits noted. Tuberculosis screening: Never had TB. Assessment: 18:07 General: Appears uncomfortable, Behavior is calm, cooperative, Denies fever, feeling ss ill. Pain: Complains of pain in right eye Pain currently is 7 out of 10 on a pain scale. Quality of pain is described as tender, Pain began today Is continuous. Neuro: Level of Consciousness is awake, alert, obeys commands, Oriented to person, place, time, situation, Production Checker are equal bilaterally. Respiratory: Airway is patent Respiratory effort is even, unlabored, Respiratory pattern is regular, symmetrical. EENT: R sclera reddened, tearing noted to R eye. Derm: Skin Skin is pink, warm \T\ dry. normal. Musculoskeletal: Circulation, motion, and sensation intact. Range of motion: intact in all extremities, Swelling absent. Vital Signs: 18:05 BP 128 / 88; Pulse 86; Resp 20; Temp 98.4(TE); Pulse Ox 100% ; Height 6 ft. 1 in. ; Pain 7/10; 18:05 Pain Scale: Adult ED Course: 17:36 Patient arrived in ED. im 17:55 Cherise Rothman MD is Attending Physician. sp3 18:05 Alejandra Jane RN is Primary Nurse. ss 18:06 Triage completed. ss 18:07 Arm band placed on right wrist. ss 18:07 Patient has correct armband on for positive identification. ss 18:26 Efren Oseguera MD is Referral Physician. sp3 18:29 Assist provider with eye exam of right eye. using fluorescein stain, Performed by Cherise Rothman MD Patient tolerated well. Patient did not have IV access during this emergency room visit. Eye irrigation of right eye w/ Jackie lens IV tubing with 500 ml normal saline, Patient tolerated well. Administered Medications: 18:25 Drug: NS 0.9% IV 500 ml IV at bolus in Other once; to be given as a bolus to R eye VIA jackie lens {Note: R eye via jackie lens as ordered.} Route: IV; Rate: bolus; Site: Other; 18:49 Follow up: IV Status: Completed infusion; irrigation completed at this time 500 mL 18:28 Drug: Tetracaine Ophthalmic Drops 0.5 % 1 drops Ophthalmic once Route: Ophthalmic; Site: right eye; Medication: 18:07 VIS not applicable for this client. Intake: Outcome: 18:27 Discharge ordered by . sp3 18:32 Discharge instructions given to patient, Instructed on discharge instructions, follow ss up and referral plans. medication usage, Demonstrated understanding of instructions, follow-up care, medications, Prescriptions given X 1, 18:47 Discharged to home ambulatory, 18:47 Condition: good 18:49 Patient left the ED. Signatures: Alejandra Jane, AISHA RN Cherise Rothman MD MD sp3 [place] im
[2024-03-23 18:54] VITALS: BP 128/88; TEMP 98.4; O2SAT 100
== END 2024-03-23 18:49 | disposition home or self-care (01) ==
LOC: ER 17:30
DX: S05.01XA Injury of conjunctiva and corneal abrasion without foreign body, right eye, initial encounter (principal)
CPT/HCPCS: 99284; J7040